=== PATIENT | female | born 1950 | race Caucasian/White ===

== ENCOUNTER 2019-12-29 16:13 | Outpatient (REF) | payer MEDICARE, OTHER, SELFPAY ==
--- NOTE | 2019-12-29 | MM_ITS ---
EXAMINATION: MM SCREENING DIGITAL BREAST TOMOSYNTHESIS, BILATERAL CLINICAL INFORMATION: Screening. Asymptomatic. The lifetime risk of breast cancer based on the Tyrer-Cuzick Model is 4.9%. COMPARISON: Mammography: December 23, 2018 and studies dating back to October 08, 2010 TECHNIQUE: Digital breast tomosynthesis is performed in both the craniocaudal and mediolateral oblique views along with computer-aided detection (CAD). Synthesized 2D images are generated from the tomosynthesis. FINDINGS: The breasts are almost entirely fatty (ACR BI-RADS breast composition Category a). There are no significant masses, abnormal calcifications, or other abnormalities. IMPRESSION: There are no significant changes from prior study. ASSESSMENT: BI-RADS 1: Negative RECOMMENDATION: Routine annual mammography screening. This patient's information was entered into a reminder system with a target due date for their next mammogram.
== END 2019-12-29 16:14 | disposition home or self-care (01) ==
LOC: HO.MAMMO 16:13
PROVIDERS: PCP Internal Medicine; Visit Provider Internal Medicine
DX: Z12.31 Encounter for screening mammogram for malignant neoplasm of breast (principal)
CPT/HCPCS: 77063; 77067

== ENCOUNTER 2020-12-18 15:05 | Outpatient (REF) | payer MEDICARE, OTHER, SELFPAY ==
--- NOTE | ~2020-12-18 | MM_ITS ---
EXAMINATION: BONE DENSITOMETRY CLINICAL INDICATION: Encounter for screening for osteoporosis. COMPARISON: Baseline BD dated 10/29/2007. TECHNIQUE: Using a [employer] DXA System (software version: 13.1) manufactured by [employer], dual-energy x-ray absorptiometry was performed of the lumbar spine and left hip. The images are of good technical quality. Summary results are attached. FINDINGS: AP SPINE L1-L4: Current: BMD 1.096 g/cm2, Z-score -0.2, T-score -0.7, normal, 2.1% decrease from baseline (<5% change is not significant). Baseline: BMD 1.119 g/cm2. LEFT FEMUR, NECK: Current: BMD 0.787 g/cm2, Z-score -0.8, T-score -1.8, osteopenia. Baseline: BMD 0.979 g/cm2. LEFT FEMUR, TOTAL: Current: BMD 0.852 g/cm2, Z-score -0.6, T-score -1.2, osteopenia, 16.6% decrease from baseline (<5% change is not significant). Baseline: BMD 1.022 g/cm2. IDENTIFIED RISK FACTORS: Height loss, low calcium intake, history of fracture (adult). Early menopause, secondary osteoporosis, hysterectomy, bilateral oophorectomy. HISTORY OF FRACTURE: Elbow. MEDICATIONS: None listed. MM/XR DEXA axial skeleton IMPRESSION: 1. DIAGNOSIS: Osteopenia based on the lowest T-score value of -1.8 in the femoral neck applying World Health Organization criteria. 2. 10-YEAR FRACTURE RISK PREDICTION, FRAX: Major osteoporotic fracture (clinical spine, forearm, hip or shoulder) 15.4%. Hip fracture 2.5%. 3. Treatment Recommendations: NOF guidelines recommend consideration for treatment in postmenopausal women and men age 50 and older presenting with the following: -A hip or vertebral (clinical or morphometric) fracture. -T-score less than or equal to -2.5 at the femoral neck or spine after appropriate evaluation to exclude secondary causes. -Low bone mass at the hip or spine and a 10-year fracture probability by FRAX of greater than or equal to 3% for hip fracture or greater than or equal to 20% for major osteoporotic fracture based on the [place] adapted WHO algorithm. 4. Other Recommendations: All treatment decisions require clinical judgment and consideration of individual patient factors, including patient preferences, comorbidities, previous drug use, risk factors not captured in the FRAX model (e.g. frailty, falls, vitamin D deficiency, increased bone turnover, interval significant decline in bone density) and possible under or overestimation of fracture risk by FRAX. Additional medical evaluation for secondary cause of low bone mineral density may be appropriate. FUTURE SCAN RECOMMENDATION: People with diagnosed cases of osteoporosis or at high risk for fracture should have regular bone mineral density tests. For patients eligible for Medicare, routine testing is allowed once every 2 years. The testing frequency can be increased to one year for patients who have rapidly progressing disease, those who are receiving or discontinuing medical therapy to restore bone mass, or have additional risk factors.
== END 2020-12-18 15:06 | disposition home or self-care (01) ==
LOC: HO.MAMMO 15:05
PROVIDERS: Visit Provider Internal Medicine
DX: Z13.820 Encounter for screening for osteoporosis (principal); Z78.0 Asymptomatic menopausal state; E28.39 Other primary ovarian failure; R29.890 Loss of height; E83.51 Hypocalcemia; Z90.710 Acquired absence of both cervix and uterus; Z90.722 Acquired absence of ovaries, bilateral
CPT/HCPCS: 77080

== ENCOUNTER 2020-12-31 15:43 | Outpatient (REF) | payer MEDICARE, OTHER, SELFPAY ==
--- NOTE | ~2020-12-31 | MM_ITS ---
EXAMINATION: MM SCREENING DIGITAL BREAST TOMOSYNTHESIS, BILATERAL CLINICAL INFORMATION: Screening. Asymptomatic. The lifetime risk of breast cancer based on the Tyrer-Cuzick Model is 5%. COMPARISON: Mammography: 12/29/2019, 12/23/2018, 12/15/2017 TECHNIQUE: Digital breast tomosynthesis is performed in both the craniocaudal and mediolateral oblique views along with computer-aided detection (CAD). Synthesized 2D images are generated from the tomosynthesis. Additional right MLO view is provided. Technically challenging exam, images tailored to patient capabilities. FINDINGS: The breasts are almost entirely fatty (ACR BI-RADS breast composition Category a). There are no significant masses, abnormal calcifications, or other abnormalities. Background stromal markings are stable. No developing density. No significant changes. MM/MM tomosynthesis screening BI IMPRESSION: No mammographic evidence of malignancy. ASSESSMENT: BI-RADS 1: Negative RECOMMENDATION: Routine annual mammography screening. This patient's information was entered into a reminder system with a target due date for their next mammogram.
== END 2020-12-31 15:44 | disposition home or self-care (01) ==
LOC: HO.MAMMO 15:43
PROVIDERS: Visit Provider Internal Medicine
DX: Z12.31 Encounter for screening mammogram for malignant neoplasm of breast (principal)
CPT/HCPCS: 77063; 77067

== ENCOUNTER 2022-01-10 15:34 | Outpatient (REF) | payer MEDICARE, OTHER, SELFPAY ==
--- NOTE | ~2022-01-10 | MM_ITS ---
EXAMINATION: MM SCREENING DIGITAL BREAST TOMOSYNTHESIS, BILATERAL CLINICAL INFORMATION: Screening. Asymptomatic. The lifetime risk of breast cancer based on the Tyrer-Cuzick Model is 4%. COMPARISON: Mammography: 12/31/2020, 12/29/2019, 12/23/2018 TECHNIQUE: Digital breast tomosynthesis is performed in both the craniocaudal and mediolateral oblique views along with computer-aided detection (CAD). Synthesized 2D images are generated from the tomosynthesis. FINDINGS: The breasts are almost entirely fatty (ACR BI-RADS breast composition Category a). Background stromal and fibroglandular densities are stable. No developing density or interval mass or architectural abnormality. Again, there is a dermal lesion overlying the posterior medial right breast. There are no abnormal calcifications. The axilla are unremarkable. No significant changes. MM/MM tomosynthesis screening BI IMPRESSION: No mammographic evidence of malignancy. ASSESSMENT: BI-RADS 2: Benign RECOMMENDATION: Routine annual mammography screening. This patient's information was entered into a reminder system with a target due date for their next mammogram.
== END 2022-01-10 15:35 | disposition home or self-care (01) ==
LOC: HO.MAMMO 15:34
PROVIDERS: PCP Internal Medicine; Visit Provider Internal Medicine
DX: Z12.31 Encounter for screening mammogram for malignant neoplasm of breast (principal)
CPT/HCPCS: 77063; 77067

== ENCOUNTER → 2023-01-13 16:00 | Outpatient (BNV) | payer MEDICARE, OTHER, SELFPAY | PROVIDERS: Visit Provider Radiology Diagnostic Radiology | DX: Z12.31 Encounter for screening mammogram for malignant neoplasm of breast (principal) | CPT/HCPCS: 77063; 77067 ==

== ENCOUNTER 2023-01-13 16:04 | Outpatient (REF) | payer MEDICARE, OTHER, SELFPAY ==
--- NOTE | ~2023-01-13 | MM_ITS ---
EXAMINATION: MM SCREENING DIGITAL BREAST TOMOSYNTHESIS, BILATERAL CLINICAL INFORMATION: Screening. Asymptomatic. COMPARISON: Mammography: This study is compared with prior exams dating back to 2017. TECHNIQUE: Digital breast tomosynthesis is performed in both the craniocaudal and mediolateral oblique views along with computer-aided detection (CAD). Synthesized 2D images are generated from the tomosynthesis. FINDINGS: The breasts are almost entirely fatty (ACR BI-RADS breast composition Category a). There are no significant masses, abnormal calcifications, or other abnormalities. MM/MM tomosynthesis screening BI IMPRESSION: No mammographic evidence of malignancy. ASSESSMENT: BI-RADS BI-RADS 1 - Negative RECOMMENDATION: Routine annual mammography screening. 1 year F/U This examination should not preclude the clinical evaluation of a suspicious palpable abnormality. This patient's information was entered into a reminder system with a target due date for their next mammogram.
== END 2023-01-13 16:05 | disposition home or self-care (01) ==
LOC: HO.MAMMO 16:04
PROVIDERS: Visit Provider Internal Medicine
DX: Z12.31 Encounter for screening mammogram for malignant neoplasm of breast (principal)
CPT/HCPCS: 77063; 77067

== ENCOUNTER 2024-02-23 15:06 | Outpatient (REF) | payer MEDICARE, OTHER, SELFPAY ==
--- OUTSIDE RECORDS SUMMARY | 2024-02-24 22:20 | XMS_ITS | Data Portability ---
Author Organization BRUNA [facility] person, [address] Address [address] [facility] [place] [address] Care Team Providers Care Lime Mixer Name Role Phone ZOHRA MARVIN Primary Care Provider [phone] Assessment No assessment recorded. Plan of Treatment Reminders Order Date Submit Date Provider Last Modified By Organization Details Last Modified Time Details Appointments None recorded. Lab rapid SARS CoV 2 Ag, QL IA, respiratory specimen 2022 [id number], [address], 3 17:47:36 Referral None recorded. Procedures None recorded. Surgeries None recorded. Imaging None recorded. Medication Orders amoxicillin 875 mg-potassiu m clavulanate 125 mg tablet 2022 023 [place] [address] [facility] #[id number], [address] [place], [place], [id number], 4 18:29:23 benzonatate 200 mg capsule 2022 023 [place] [address] [facility] #[id number], [address] [place], [place], [id number], 4 18:29:15 triamcinolo ne acetonide 0.1 % topical cream 2023 024 JENNI [facility] #18770, [address] [place], [id number], 4 19:03:41 cephalexin 500 mg capsule 2023 024 [facility] #02172, [address] [place], [id number], 4 19:03:41 mupirocin 2 % topical ointment 2023 024 [facility] #49331, [address] [place], [id number], 19:03:40 Patient TargetsNo targets recorded. Patient Instructions Encounter Date Encounter Id Patient Instructions Last Modified By Organization Details Last Modified Time 04/17/2022 [id number] sinusitis Not available 04/17 17:47:36 Acute Sinusitis: Care Instructions [email or web address] Not available 04/17/2022 17:47:36 cough: care instructions Not available 04/17/2022 17:47:36 Based on your presentation and exam, you are being diagnosed with Sinusitis. Rhinosinusitis is most often viral and will resolve on its own in 7-10 days. Symptoms that last longer than 2 weeks an antibiotic could be considered. Based on your presentation, and antibiotic was written. The following are my recommendations to help your symptoms and to allow your condition to improve: 1. Drink plenty of fluids while you are ill- stay hydrated 2. Rest - don't overexert yourself - this includes sports and any gym routines. 3. I suggest taking an antihistamine - like Claritin, Zyrtec, or Benedryl 4. If you take OTC cold medication I would recommend Cynthia-Selzer Cold/Cough. 5. Mucinex with a lot of water is ok - if you are having trouble clearing your nasal passages of mucous. However, if you start to cough then discontinue - this can increase coughing due to a watery post nasal drip. 6. Saline Nasal [place] is recommended. Since an antibiotic was prescribed you need to complete the full course - this is important so you don't develop any antibiotic resistance to future infections. I advise taking a Probiotic like Florastor since you are on an antibiotic - this will help you re-colonize your body with the good bacteria. Typically, it will take 6 months for you to restore your normal body saurav after an antibiotic. Don't hesitate to be seen again if you develop: 1. Fever > 100.5 2. Worsening Headache 3. Stiff Neck 4. Worsening Cough or Shortness of breath 5. Visual Changes. The antibiotic should start to work in 4-5 days. You may not notice immediate response. Thank you for using [facility] today, please feel free to contact our office if you have any questions or concerns. You blood pressure was elevated during your visit with us and you do not have a history of Hypertension or taking blood pressure medications currently. This is important to monitor and address with your PCP. Undiagnosed hypertension that remains untreated can lead to: 1. Kidney Failure 2. Stroke 3. Congestive Heart Failure. Please get a blood pressure cuff and keep a journal of your daily blood pressure. Once in the AM and Once in a PM. Please schedule an appointment with your Primary Care Doctor to discuss the results of your journal. [email or web address] Not available 04/17/2022 17:47:34 10/31/2023 [id number] insect stings an d bites: care instructions [email or web address] Not available 10/31/2023 19:03:30 impetigo: care instructions [email or web address] Not available 10/31/2023 19:03:30 Increase fluids. Get plenty of rest. [email or web address] or with your PCP in 2-3 days if your symptoms are not improving. You should follow up sooner if your symptoms worsen significantly or if you develop new symptoms that concern you. Please proceed to the emergency department with an new/worsening symptoms. Call 911 or proceed to nearest Emergency Department if you develop shortness of breath, chest pain, or other symptoms that concern you. You may take tylenol as directed on package. [email or web address] Not available 10/31/2023 19:00:37 Pt tells me that she has done fine with topical steroid creams. Reaction to prednisone was colitis.... Some of these lesions appear like impetigo possibly secondary to scratching. [email or web address] Not available 10/31/2023 22:42:20 Reason for Referral None Reported. Results Created Date Observation Date Name Description Value Unit Range Abnormal Flag Note LastModifiedBy Organization Detail LastModifiedTime 04/17/1904/17/2022 rapid SARS CoV 2 Ag, QL IA, respi rator y speci men Unknown Analyte Normal =Negat enoch Not Available [facility] [address] [place], [address], 04/17/2022 16:46:57 04/17/19 23 04/17/2022 rapid SARS CoV 2 Ag, QL IA, respi rator y speci men Unknown Analyte negati ve Not Available [facility] [address] [place], [address], 04/17/2022 16:46:57 Result Notes None recorded. Problems Name Problem SNOMED Code Status Onset Date Resolution Date Notes Provider Name and Address Organization Details Recorded Time Hypothyroidism 25518022 Active Gladys haley PA - [facility] 18:29:52 Problem Notes None recorded. Procedures Surgical History Date Name Laterality Status Provider Name and Address Organization Details Recorded Time Cataract surg w/iol 1 stage completed Gladys Bernabe PA - [facility] 10/31/2023 18:30:00 tonsillectomy completed Louann Brown PA - [facility] 04/17/2022 16:55:16 Appendectomy completed Louann Brown PA - [facility] 04/17/2022 16:55:21 hysterectomy completed Louann Mongefecaesar PA - [facility] 04/17/2022 16:55:31 varicose vein operation completed Louann Brown PA - [facility] 04/17/2022 16:55:45 Imaging Results None recorded. Procedure Notes None recorded. Medical Equipment None Reported. Allergies Allergen ID Allergen Name Allergen Category Reaction Reaction Severity Criticality Documentation Date Start Date Code Code System Note Provider Name and Address Organization Details Recorded Time 324616 acetamino phen / hydrocodo ne medicatio n Not available Not available Not available 04/17/2022 47980 2 RxNorm Louann haley PA - [facility] 16:50:13 953967 acetamino phen / oxycodone medicatio n Not available Not available Not available 04/17/2022 74341 3 RxNorm Louann Brown null, PA - [facility] 3 16:50:21 603768 prednison e medicatio n Not available Not available Not available 04/17/2022 8640 RxNorm Louann Brown null, PA - [facility] 3 16:50:31 319098 aspirin medicatio n Not available Not available Not available 04/17/2022 1191 RxNorm Louann Brown null, PA - [facility] 3 16:50:58 Medications Name Sig Start Date Stop Date Status Note LastModified by Organization Details LastModified Time amoxicillin 500 mg capsule 10/30 completed Not Available Not Available Not Available promethazin e-DM 6.25 mg-15 mg/5 mL oral syrup TAKE 5 ML BY MOUTH EVERY 6 HOURS NEEDED FOR COUGH 04/17 completed Not Available Not Available Not Available azithromyci n 250 mg tablet TAKE 2 TABLETS BY MOUTH ON DAY 1 AND TAKE 1 TABLET ON DAYS 2 THROUGH 5 FOR A TOTAL OF 5 DAYS.TAKE WITH FOOD. USE PROBIOTIC LIKE YOGURT FOR 3 WEEKS 10/30 completed Not Available Not Available Not Available benzonatate 200 mg capsule TAKE 1 CAPSULE BY MOUTH THREE TIMES DAILY 10/30 completed Not Available Not Available Not Available phenazopyri dine 200 mg tablet TAKE 1 TABLET BY MOUTH THREE TIMES DAILY 04/17 completed Not Available Not Available Not Available triamcinolo ne acetonide 0.1 % topical cream APPLY THIN LAYER TOPICALLY TO THE AFFECTED AREA 2 TO 3 TIMES PER DAY active Not Available Not Available No t Available amoxicillin 500 mg tablet TAKE 1 TABLET BY MOUTH EVERY 8 HOURS 10/30 completed Not Available Not Available Not Available ketorolac 0.5 % eye drops 10/30 completed Not Available Not Available Not Available meloxicam 7.5 mg tablet 10/30 completed Not Available Not Available Not Available levothyroxi ne 100 mcg tablet active Not Available Not Available Not Available prednisolon e acetate 1 % eye drops,suspe nsion SHAKE LIQUID AND INSTILL 1 DROP IN LEFT EYE FOUR TIMES DAILY FOR 3 WEEKS THEN STOP 10/30 completed Not Available Not Available Not Available benzonatate 100 mg capsule TAKE 1 CAPSULE BY MOUTH THREE TIMES DAILY NEEDED FOR COUGH 10/30 completed Not Available Not Available Not Available cephalexin 500 mg capsule TAKE 1 CAPSULE BY MOUTH EVERY 8 HOURS FOR 10 DAYS active Not Available Not Available No t Available omeprazole 20 mg capsule,del ayed release active Not Available Not Available Not Available diclofenac sodium 75 mg tablet,bayron yed release active Not Available Not Available Not Available mupirocin 2 % topical ointment APPLY SPARINGLY TO THE AFFECTED AREA THREE TIMES DAILY FOR 10 DAYS active Not Available Not Available No t Available cefuroxime axetil 500 mg tablet 10/30 completed Not Available Not Available Not Available levofloxaci n 500 mg tablet TAKE 1 TABLET BY MOUTH EVERY DAY FOR 10 DAYS FOR INFECTION 04/17 completed Not Available Not Available Not Available albuterol sulfate HFA 90 mcg/actuati on aerosol inhaler INHALE 2 PUFFS INTO THE LUNGS EVERY 6 HOURS NEEDED FOR WHEEZING 10/30 completed Not Available Not Available Not Available cefdinir 300 mg capsule TAKE 1 CAPSULE BY MOUTH TWICE DAILY 04/17 completed Not Available Not Available Not Available fluticasone propionate 50 mcg/actuati on nasal spray,suspe nsion SHAKE LIQUID AND USE 1 SPRAY IN EACH NOSTRIL TWICE DAILY FOR ALLERGY SYMPTOMS 10/30 completed Not Available Not Available Not Available amoxicillin 875 mg-potassiu m clavulanate 125 mg tablet TAKE 1 TABLET BY MOUTH TWICE DAILY FOR 10 DAYS 10/30 completed Not Available Not Available Not Available Advair HFA 115 mcg-21 mcg/actuati on aerosol inhaler INHALE 2 PUFFS INTO THE LUNGS TWICE DAILY 10/30 completed Not Available Not Available Not Available Paxlovid 300 mg (150 mg x 2)-100 mg tablets in a dose pack TK 2 NIRMATREL VIR TS AND 1 RITONAVIR T TOGETHER PO BID FOR 5 DAYS 10/30 completed Not Available Not Available Not Available Vitals Date Recorded Body height Body mass index (BMI) Body weight Oxygen saturation Oxygen saturation in Arterial blood by Pulse oximetry Heart rate Respiratory rate Body temperature Systolic blood pressure Diastolic blood pressure Provider Name and Address Organization Details Last Updated DateTime 4 167.64 cm 41.2 kg/m2 033897. 05 g 99 % 99 % 68 /min 18 /min 97.7 [degF] 167 mm[Hg] 84 mm[Hg] Gladys Zabalarudy PA - [facility] 4 18:32:56 Date Recorded Systolic blood pressure Diastolic blood pressure Provider Name and Address Organization Details Last Updated DateTime 10/31/2023 144 mm[Hg] 86 mm[Hg] Ron Steward, [facility] [address] [facility] [place], [address], PA - [facility] 10/31/2023 19:03:22 Date Recorded Body height Body mass index (BMI) Body weight Oxygen saturation Oxygen saturation in Arterial blood by Pulse oximetry Heart rate Respiratory rate Body temperature Systolic blood pressure Diastolic blood pressure Provider Name and Address Organization Details Last Updated DateTime 3 167.64 cm 41.2 kg/m2 556291. 05 g 97.8 % 97.8 % 87 /min 18 /min 97.8 [degF] 153 mm[Hg] 80 mm[Hg] Louann Brown PA - [facility] 3 16:59:29 Social History Question Answer Notes LastModified by NETpeas ion Details LastModified Time Tobacco Smoking Status Never Smoker Louann haley PA - [facility] 04/17/2022 16:54:56 What Is Your Level Of Alcohol Consumption? Occasional 1x Every Other Month Information not available 04/17/2022 Do You Use Any Illicit Or Recreational Drugs? No Information not available 04/17/2022 Have You Recently Traveled Abroad? No Information not available 04/17/2022 Do You Or Have You Ever Used Any Other Forms Of Tobacco Or Nicotine? No Information not available 04/17/2022 Sex: Unknown Functional Status None recorded. Mental Status None recorded. Family History Relationship Description Onset Age of this Age Resolved Age Notes LastModified by Organization Details LastModified Time Father Malignant tumor of kidney [email or web address] Not available 2022 16:53:31 Father Cerebrovascu lar accident [email or web address] Not available 04/2022 16:54:04 Mother Chronic obstructive pulmonary disease [email or web address] Not available 2022 16:53:45 Medical History No medical history recorded. Gynecological HistoryNo gynecological history recorded. Obstetrics History GPAL:G 0 P 0 0 0 0 Immunizations Vaccine Type Date Status Note Provider Nam e and Address Organization Details Recorded Time zoster recombinant 1 completed Louann Monfette null, PA - [facility] 04/17/2022 16:50:02 zoster recombinant 1 completed Louann Monfette null, PA - [facility] 04/17/2022 16:50:02 Influenza, high-dose, quadrivalent, PF 0 completed Louann Monfette null, PA - [facility] 04/17/2022 16:50:02 Influenza, high-dose, quadrivalent, PF 1 completed Louann Monfette null, PA - [facility] 04/17/2022 16:50:02 Influenza, adjuvanted, quadrivalent, PF 2 completed Louann Monfette null, PA - [facility] 04/17/2022 16:50:02 COVID-19, mRNA, LNP-S, PF, 100 mcg/0.5mL dose or 50 mcg/0.25mL dose 1 completed Louann Monfette null, PA - [facility] 04/17/2022 16:50:02 COVID-19, mRNA, LNP-S, PF, 100 mcg/0.5mL dose or 50 mcg/0.25mL dose 1 completed Louann Monfette null, PA - [facility] 04/17/2022 16:50:02 COVID-19, mRNA, LNP-S, PF, 100 mcg/0.5mL dose or 50 mcg/0.25mL dose 2 completed Louann Monfette null, PA - [facility] 04/17/2022 16:50:02 COVID-19, mRNA, LNP-S, PF, 100 mcg/0.5mL dose or 50 mcg/0.25mL dose 1 completed Louann Monfette null, PA - [facility] 04/17/2022 16:50:02 COVID-19, mRNA, LNP-S, bivalent, PF, 50 mcg/0.5 mL or 25mcg/0.25 mL dose 2 completed Louann Mongelynda haley, PA - [facility] 04/17/2022 16:50:02 pneumococcal polysaccharide PPV23 1 completed Louann Mongelynda null, PA - [facility] 04/17/2022 16:50:02 Pneumococcal conjugate PCV 13 7 completed Louann Mongelynda null, PA - [facility] 04/17/2022 16:50:02 Past Encounters Encounter ID Performer Location Encounter Start Date Encounter Closed Date Diagnosis/Indication Diagnosis SNOMED-CT Code Diagnosis ICD10 Code [id number] [address] [place] [address] 01/28/2022 12:15:47 01/28/2022 13:50:07 [id number] [address] [place] [address] 11/04/2019 12:34:50 11/04/2019 15:02:28 [id number] [address] [place] [address] 12/30/2021 15:54:53 12/30/2021 17:50:16 [id number] [address] [place] [address] 06/15/2018 17:25:09 06/15/2018 18:24:02 [id number] [address] [place] [address] 10/27/2019 13:18:53 10/27/2019 14:36:55 [id number] [address] [place] [address] 05/28/2017 15:35:13 05/28/2017 16:02:24 [id number] [address] [place] [address] 08/06/2020 15:06:48 08/06/2020 16:48:43 [id number] [address] [place] [address] 07/13/2021 12:18:25 07/13/2021 14:29:30 [id number] [address] [place] [address] 12/26/2021 16:05:48 12/26/2021 17:42:15 [id number] [address] [address] [place] [address] 12/22/2021 16:13:25 12/22/2021 17:05:19 [id number] [place] GORMAN [address] [place] [address] 04/17/2022 15:02:29 04/17/2022 17:49:15 Exposure to SARS-CoV-2 776277011 Z20.822 Elevated blood-pressure reading without diagnosis of hypertension 657669841 R03.0 Acute sinusitis 86413423 J01.90 Cough 94982559 R05.9 [id number] MINGO Ann [address] [place] [address] [place] [address] 10/31/2023 17:50:34 10/31/2023 19:05:01 Bite of insect 706784961 W57.XXXA Impetigo 46675950 L01.00 Health Concerns Section Related Observation LastModified by Organization Detai ls LastModified Time None Recorded Concern Status LastModified by Organization Details LastModified Time None Recorded Advance Directives Directive None Recorded Payers Encounter Date Sequence Insurance Name Policy Number Policy Garzon Covered Member ID Garzon Member ID Guarantor Name 12/26/2021 1 [place] [employer] Valerie Mcdonough Colt [id number] Valerie Mcdonough Colt 12/26/2021 2 WPS - FOR LIFE (SECONDARY TO MEDICARE) Valerie Mcdonough Colt [id number] Valerie Mcdonough Colt 12/30/2021 1 [place] [employer] Valerie Mcdonough Colt [id number] Valerie Mcdonough Colt 12/30/2021 2 WPS - FOR LIFE (SECONDARY TO MEDICARE) Valerie Mcdonough Colt [id number] Valerie Mcdonough Colt 01/28/2022 1 [place] [employer] Valerie Mcdonough Colt [id number] Valerie Mcdonough Colt 01/28/2022 2 WPS - FOR LIFE (SECONDARY TO MEDICARE) Valerie Mcdonough Colt [id number] Valerie Mcdonough Colt 04/17/2022 1 [place]: [facility] Valerie Mcdonough Colt [id number] Valerie Mcdonough Colt 04/17/2022 2 WPS - FOR LIFE (SECONDARY TO MEDICARE) Valerie Mcdonough Colt [id number] Valerie Mcdonough Colt 10/31/2023 1 [place] [facility] Valerie Mcdonough Colt [id number] Valerie Mcdonough Colt 10/31/2023 2 WPS - FOR LIFE (MEDICARE SUPPLEMENT) Valerie Mcdonough Colt [id number] Valerie Mcdonough Colt Notes Date Note Type Note Provider Name and Address Organization Details Recorded Time 04/17/2022 text/html Sinus ComplaintsReported bypatient.Location:sinu s pain Associated Symptoms:nasal discharge from both nostrils;headache forehead;sore throat;Post nasal drip Onset/Timing:initially started 1weeks ago Severity:mild Context:no recent sick contactsNotes:The patient reports that last year she had a drawn out illness that ended up as pneumonia. She started to had head congestion that is continuing. She now feels it going into her chest and she doesn't want to let it get worse. She denies any shortness of breath or wheezing. 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 BRUNA GORMAN, RAPHAEL Restrepo, [address], PA - [facility] 04/17/2022 22:44:15 10/31/2023 text/html Skin Redness UCR eported bypatient.Location:neck ; back; bilateral arm Quality:not painful;erythematous;wa rm;itchy Severity:moderate;const ant Duration:2 days Onset:sudden onset Symptoms:no fever; no nausea; no vomiting;swelling MINGO Ann [address] [place], [address], [place] PA - [facility] 10/31/2023 22:47:21 OBGyn Episode No OBEpisode recorded.
== END 2024-02-23 15:07 | disposition home or self-care (01) ==
LOC: HO.MAMMO 15:06
PROVIDERS: Absent Provider Obstetrics & Gynecology Gynecologic Oncology; PCP Internal Medicine; Visit Provider Internal Medicine
DX: Z12.31 Encounter for screening mammogram for malignant neoplasm of breast (principal)
CPT/HCPCS: 77063; 77067

== ENCOUNTER → 2024-02-23 15:15 | Outpatient (BNV) | payer MEDICARE, OTHER, SELFPAY | PROVIDERS: Absent Provider Obstetrics & Gynecology Gynecologic Oncology; PCP Internal Medicine; Visit Provider Internal Medicine | DX: Z12.31 Encounter for screening mammogram for malignant neoplasm of breast (principal) | CPT/HCPCS: 77063; 77067 ==

== ENCOUNTER 2025-02-28 15:15 | Outpatient (REF) | payer MEDICARE, OTHER, SELFPAY ==
--- OUTSIDE RECORDS SUMMARY | 2023-05-22 19:20 | XMS_ITS | Encounter Summary ---
Author Organization [facility] Address [address] [place] [address] Phone Care Team Providers Care Petrographer Name Role Phone Uriel Estrella MD Primary Care Provider [phone] Debby Ernst MD Unavailable Joni Jenkins MD Unavailable [phone] Amrita Vincent MD Unavailable Encounter Details Date Type Department Care Team (Late st Contact Info) Description 05/22/2023 7:20 PM EST Hospital Encounter [facility] [address] [place] [address] [id number] Whit Marc PA-C, MS [address] [place], [place] [id number] [email or web address] Social History Tobacco Use Types Packs/Day Years Used Date Smoking Tobacco: Former Cigarettes 0.5 2 1 978 - 1980 Smokeless Tobacco: Never Alcohol Use Standard Drinks/Week Comments Not Currently 0 (1 standard drink = 0.6 oz pur e alcohol) last drink in 2023 or 2022 Education Answer Date Recorded Are you interested in more education? Not on hari e 07/11/2022 Are you concerned about learning? Not on file 07/11/2022 No 07/11/2022 No 07/11/2022 Food Answer Date Recorded Within the past 6 months we worried whether our food would run out before we got money to buy more. Never True 10/13/2024 Within the past 6 months the food we bought just didn't last and we didn't have enough money to get more. Never True Residential Stability Answer Date Recor ded What is your housing situation today? I have jack sing 10/13/2024 How many times have you move d in the past 12 months? Zero (I did not move) 10/13/2024 Paying for Meds Answer Date Recorded Do you have trouble paying for medicines? No 10/13/2024 Paying Utility Bills Answer Date Record ed Do you have trouble paying your heating or elect ricity bill? No 10/13/2024 Transportation Answer Date Recorded Has the lack of transportati on kept you from medical appointments or from getting medications? Yes 10/13/2024 Digital Access Answer Date Recorded No 10/13/2024 Yes 10/13/2024 Do you have reliable internet access at home? Ye s 10/13/2024 Do you have a device (e.g., phone, tablet, computer) with a working camera? Yes 10/13/2024 Intimate Partner Violence Answer Date R ecorded Are you denied basic needs s uch as food, clothing, or medical care? No 02/27/2025 In the past 12 months have y ou been in a relationship with a person who hurts, threatens, or tries to control you? No 02/27/2025 Are you denied basic needs s uch as food, clothing, or medical care? No 02/27/2025 In the past 12 months have y ou been in a relationship with a person who hurts, threatens, or tries to control you? No 02/27/2025 Comments No Sex and Gender Information Value Date Recorded Sex Assigned at Not on file Legal Sex Female 10:02 PM EDT Gender Identity Not on file Sexual Orientation Not on file documented as of this encounter Functional Status * Calculated C-SSRS Risk Score (Lifetime/Recent) Answer Date of Assessment Author No Risk Indicated 10/13/2024 7:05 PM EDT Melissa Dukes, ANAND * [place] Suicide Severity Rating Scale (Screener/Recent Self-Report) Question Answer Date of Assessment Author 1. Wish to be (Past 1 Month) No 025 7:05 PM EDT Melissa Dukes, ANAND 2. Non-Specific Active Suici jeffery Thoughts (Past 1 Month) No 10/13/2024 7:05 PM EDT Melissa Dukes , ANAND 6. Suicidal Behavior (Lifetime) No 7:05 PM EDT Melissa Dukes, RN documented as of this encounter Plan of Treatment Upcoming Encounters Date Type Department Care Team (Late st Contact Info) Description 03/13/2025 Procedure Pass [facility] Admitting [facility] Virtual Department [address] [place] [phone] 03/13/2025 10:30 AM EST Hospital Encounter [facility] Virtual Department [address] [place] [id number] Joni Jenkins MD [address] [place] [phone] 03/13/2025 10:30 AM EST - 03/13/2025 11:00 AM EST Surgery [facility] Admitting [facility] Virtual Department [address] [place] [phone] Joni Jenkins MD [address] [place] [phone] COLONOSCOPY 05/19/2025 3:30 PM EST Office Visit [facility] [address] [place] [phone] Uriel Estrella MD [address] [place] [phone] 08/10/2025 3:40 PM EDT Office Visit [facility] [address] [place] [phone] Amrita Vincent MD [address] [place] [id number] [email or web address] Scheduled Procedures Name Priority Associated Diagnoses Date/Ti me COLONOSCOPY GERD without esophagitis 03/13/2025 10:30 AM EST documented as of this encounter Procedures Procedure Name Priority Date/Time Associated Diagnosis Comments XR TIBIA FIBULA 2 VIEWS (LEFT) Urgent/patient waiting 05/22/2023 7:29 PM EST Left leg pain documented in this encounter Results * XR Tibia Fibula 2 Views (Left) (05/22/2023 7:29 PM EST) Anatomical Region Laterality Modality Leg Left Computed Radiogr aphy 05/22/2023 7:44 PM EST Impressions 05/22/2023 7:48 PM EST No acute displaced fracture or dislocation. ATTESTATION: I, Dr. Rainer Herndon as teaching physician, have reviewed the images for this case and if necessary edited the report originally created by Isabella [place]. Narrative 05/22/2023 7:48 PM EST XR TIBIA FIBULA 2 VIEWS (LEFT) Referring clinician's provided indication for this examination in [facility]: Trauma; folding chair to the left martinez last Thursday, bruised COMPARISON: None. FINDINGS: No acute displaced fracture or dislocation. The knee and ankle articulations appear intact on limited, nondedicated views. Small quadriceps tendon enthesophyte. Mild degenerative changes of the left knee and ankle. Small plantar enthesophyte. Mild diffuse soft tissue edema. Procedure Note Rainer Herndon MD - 05/22/2023 XR TIBIA FIBULA 2 VIEWS (LEFT) Referring clinician's provided indication for this examination in [facility]:Trauma; folding chair to the left martinez last Thursday, bruised COMPARISON: None. FINDINGS: No acute displaced fracture or dislocation. The knee and anklearticulations appear intact on limited, nondedicated views. Smallquadriceps tendon enthesophyte. Mild degenerative changes of the left kneeand ankle. Small plantar enthesophyte. Mild diffuse soft tissue edema. IMPRESSION: No acute displaced fracture or dislocation. ATTESTATION: I, Dr. Rainer Herndon as teaching physician, have reviewed theimages for this case and if necessary edited the report originally createdby Isabella [place]. Whit Marc PA-C, MS IMG XR LOWER EXTRE MITY Final Result documented in this encounter Visit Diagnoses Not on filedocumented in this encounter Additional Health Concerns Infection Onset Date Last Indicated Resolved Time CoV-Risk 06/06/2024 06/06/2024 06/17/2024 1:23 AM EDT CoV-Risk 07/22/2024 07/22/2024 08/02/2024 1:21 AM EDT Resp-Risk 02/11/2025 02/11/2025 02/22/2025 7:06 PM EST Assessment Noted Time PHQ-2 Depression Total Score: 2 02/25/20 3:49 PM EST documented as of this encounter Care Teams Petrographer Relationship Specialty Start Date End Date Uriel Estrella MD [address] [place] [address] [email or web address] PCP - General 02/12/17 Debby Ernst MD [address] [phone] Obstetrics and Gynecology 03/20/20 Joni Jenkins MD [address] [phone] Gastroenterology 03/20/20 Amrita Vincent MD [address] [phone] [email or web address] Endocrinology 10/23/20 documented as of this encounter Additional Source Comments The information contained in this document represents components of the legal health record. It is not the complete legal health record.[facility]
--- OUTSIDE RECORDS SUMMARY | 2025-02-27 09:00 | XMS_ITS | Encounter Summary ---
Author Organization [facility] Address [address] [facility] [address] [place] [address] Phone Care Team Providers Care Air Conditioning Supervisor Name Role Phone Uriel Estrella MD Primary Care Provider Debby Ernst MD Unavailable Joni Jenkins MD Unavailable [phone] Amrita Vincent MD Unavailable Uriel Estrella MD Unavailable [phone] Encounter Details Date Type Department Care Team (Late st Contact Info) Description 02/27/2025 9:00 AM EST Pre-Admission Testing Pre Procedure Evaluation [address] [place] [address] Joni Jenkins MD [address] [place] [address] [email or web address] Social History Tobacco Use Types Packs/Day Years [...] on file documented as of this encounter Last Filed Vital Signs Vital Sign Reading Time Taken Comments Blood Pressure - - Pulse - - Temperature - - Respiratory Rate - - Oxygen Saturation - - Inhaled Oxygen Concentration - - Weight 120.2 kg (265 lb) 02/27/2025 2:47 PM EST Height 167.6 cm (5' 6 ) 02/27/2025 2:47 PM EST Body Mass Index 42.77 02/27/2025 2:47 PM EST documented in this encounter Progress Notes * Marsha Julio RN - 02/27/2025 9:00 AM EST Reviewed prep instructions. All questions answered. Ride home arranged. Patient verbalized understanding documented in this encounter Plan of Treatment Upcoming Encounters Date Type Department Care Team (Late st Contact Info) Description 03/13/2025 Procedure Pass [facility] Endoscopy Admitting Dept Virtual Department [address] [place] [address] 03/13/2025 10:30 AM EST Hospital Encounter [facility] Admitting [facility] Virtual Department [address] [place] [address] Joni Jenkins MD [address] [place] [address] 03/13/2025 10:30 AM EST - 03/13/2025 11:00 AM EST Surgery [facility] Admitting Dept Virtual Department [address] [place] [address] Joni Jenkins MD [address] [place] [address] COLONOSCOPY 05/19/2025 3:30 PM EST Office Visit [facility] [address] [place] [address] Uriel Estrella MD [address] [place] [address] 08/10/2025 3:40 PM EDT Office Visit [facility] [address] [place] [address] [place] [address] Amrita Vincent MD [address] [place] [address] [email or web address] [email or web address] Procedures Name Priority Associated Diagnoses Date/Ti me COLONOSCOPY GERD without esophagitis 03/13/2025 10:30 AM EST documented as of this encounter Goals Goal Patient Goal Type Associated Problems Recent Progress Patient-Stated? Author Autogenerat ed Goal Care Plan Autogenerated Problem No Carolina Love RN documented as of this encounter Visit Diagnoses Not on filedocumented in this encounter Additional Health Concerns Active Problems Noted Date Diagnosed Date Autogenerated Problem 02/24/2025 Assessment Noted Time PHQ-2 Depression Total Score: 1 02/27/20 25 6:36 PM EST documented as of this encounter Care Teams Air Conditioning Supervisor Relationship Specialty Start Date End Date Uriel Estrella MD [address] [place] [address] [email or web address] PCP - General 02/12/17 Debby Ernst MD [address] [address] Obstetrics and Gynecology 03/20/20 Joni Jenkins MD [address] [address] [email or web address] Gastroenterology 03/20/20 Amrita Vincent MD [address] [place] [address] [email or web address] Endocrinology 10/23/20 Uriel Estrella MD [address] [place] [address] [email or web address] Insurance Assigned Provider 06/20/23 documented as of this encounter Additional Source Comments The information contained in this document represents components of the legal health record. It is not the complete legal health record.[facility]
--- OUTSIDE RECORDS SUMMARY | 2025-02-27 16:00 | XMS_ITS | Encounter Summary ---
Author Organization [facility] Address [address] [place] [address] Phone Care Team Providers Care Booster Station Operator Name Role Phone Uriel Estrella MD Primary Care Provider [phone] Debby Ernst MD Unavailable [phone] Joni Jenkins MD Unavailable [phone] Amrita Vincent MD Unavailable Uriel Estrella MD Unavailable [phone] Reason for Visit * Reason Comments Medicare Annual Wellness Visit Subsequen t Encounter Details Date Type Department Care Team (Latest Contact Info) Description 02/27/2025 4:00 PM EST Office Visit [facility] [address] [place], [place] [phone] Uriel Estrella MD [address] [place] [address] [email or web address] Routine general medical examination at a health care facility (Primary Dx); Morbid (severe) obesity due to excess calories; History of pulmonary embolism; Elevated blood pressure reading without diagnosis of hypertension; History of pulmonary embolus (PE); Acquired hypothyroidism Social History Tobacco Use Types Packs/Day Years [...] Sign Reading Time Taken Comments Blood Pressure 145/78 02/27/2025 4:51 PM EST Pulse 75 02/27/2025 3:49 PM EST Temperature 36.7 C (98.1 F) 02/27/2025 3:49 PM EST Respiratory Rate - - Oxygen Saturation 98% 02/27/2025 3:49 PM EST Inhaled Oxygen Concentration - - Weight 120.9 kg (266 lb 9.6 oz) 02/27/2025 3:49 PM EST Height - - Body Mass Index 43.03 02/27/2025 2:47 PM EST documented in this encounter Progress Notes * Uriel Estrella MD - 02/27/2025 4:00 PM EST Subjective Valerie Gregory is a 75 y.o. female. History of Present Illness Valerie Mcnair is a 75 year old female who presents with persistent knee wound issues and fatigue. On December 05, 2024, she slipped on water in the hallway at school, causing her right leg to go out from under her. She fell forward, landing on her knee, which resulted in a significant wound. Shewas immediately taken to the emergency room at [facility], where she spent five days due to uncontrolled bleeding and was seen by multiple specialists. The wound has been slow to heal, and she continues to experience leakage and pain. She has been using small Band-Aids for dressing the wound, which has reduced from needing a full knee wrap. She has been seeing a workman's comp doctor weekly for wound measurements and is scheduled to see a plastic surgeon on March 17, 2025. She experiences significant fatigue and feels exhausted, often falling asleep unexpectedly. She feels exhausted and often falls asleep unexpectedly. She is currently working four days a week, taking Wednesdays off to recuperate due to low stamina. She has a persistent bruise on her arm, present for several weeks, causing pain when she raises herarm. She does not recall any recent shots or injuries that could have caused it. She reports an intermittent cough, which she attributes to a virus contracted from a student. The cough is not as severe as it was initially. She has a history of thyroid issues, which were exacerbated during her stay in rehab due to medication errors. Her TSH levels were significantly off, and she recently had blood work done to reassess her thyroid function. She reports symptoms of a urinary tract infection, including burning during urination and increasedfrequency, though her urine is not discolored. She has been drinking cranberry juice, which has alleviated some symptoms. She is on blood thinners due to a history of pulmonary embolisms, which have been unexplained despite extensive testing. She is also taking omeprazole and meloxicam. Current Outpatient Medications Ordered in Epic Medication Sig acetaminophen (TYLENOL) 500 MG tablet Take 1,000 mg by mouth 3 (three) times a day as needed for pain (specific location in comments). apixaban (ELIQUIS) 5 mg tablet Take 1 tablet (5 mg total) by mouth 2 (two) times a day. cetirizine (ZYRTEC) 10 MG tablet Take 10 mg by mouth daily. cholecalciferol (VITAMIN D3) 25 MCG (1,000 unit) tablet Take 1,000 Units by mouth nightly at bedtime. diphenhydrAMINE (BENADRYL) 50 MG capsule 50 mg one hour before your ct with iv contrast (Patient taking differently: as needed. 50 mg one hour before your ct with iv contrast) magnesium oxide (MAG-OX) 400 mg (241.3 mg elemental) tablet Take 400 mg by mouth daily. meloxicam (MOBIC) 7.5 MG tablet Take 1 tablet (7.5 mg total) by mouth 2 (two) times a day. omeprazole (PRILOSEC) 20 MG capsule TAKE 1 CAPSULE DAILY ONE-HALF TO ONE HOUR BEFORE MORNING MEAL (Patient taking differently: Take 20 mg by mouth every evening.) senna (SENOKOT) 8.6 mg tablet Take 2 tablets by mouth 2 (two) times a day as needed. acetaminophen (TYLENOL) 325 mg tablet Take 975 mg by mouth. (Patient not taking: Reported on 02/27/2025) amoxicillin (AMOXIL) 500 MG capsule Take 4 capsules 1 hour prior to dental procedures levothyroxine (SYNTHROID, LEVOTHROID) 100 MCG tablet TAKE ONE AND ONE-HALF TABLETS one day PER WEEKAND 1 TABLET 6 DAYS PER WEEK OR DIRECTED polyethylene glycol (GOLYTELY) 236-22.74-6.74 -5.86 gram solution Take 4,000 mL by mouth once for 1dose. Review of Systems Constitutional: Negative for unexpected weight change. HENT: Negative for changes in hearing. Eyes: Negative for unexpected vision change. Respiratory: Positive for cough and shortness of breath. Cardiovascular: Negative for chest pain and palpitations. Gastrointestinal: Negative for abdominal pain, blood in stool, constipation and diarrhea. Genitourinary: Negative for problems with urination, pain with intercourse and blood in urine. Neurological: Negative for dizziness, headaches and changes in memory. Skin: Negative for persistent rash and breast concerns. Musculoskeletal: Positive for joint pain. Objective Physical Exam BP (!) 145/78 (BP Location: Right forearm, Patient Position: Sitting, Cuff Size: Small) Pulse 75 Temp 36.7 ??C (98.1 ??F) (Oral) Wt 120.9 kg (266 lb 9.6 oz) LMP (LMP Unknown) SpO2 98% BMI43.03 kg/m?? HEENT:PERRTL, EOM intact, fundi benign, TM's clear, throat clear. NECK: supple, no thyroid megaly, no adenopathy. LUNGS: clear to A&P,no wheezing/rhonichi/rales. HEART: RRR S1S2 without murmurs, rubs or gallops. ABDOMEN: bowel sounds: normal, soft non tender without masses. EXTREMITIES: left knee with hematoma and drainage. BREAST: Per Dr. Ernst. 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 Potential need for surgical intervention discussed. - Continue follow-up with plastic surgeon on March 17. Anemia Anemia likely due to chronic blood loss from knee wound. Hemoglobin critically low at 7.3 during hospitalization. - Continue to monitor hemoglobin levels and hematocrit. - Consider iron supplementation with vitamin C if indicated. Urinary tract infection Symptoms of burning and increased frequency. Atypical presentation without hematuria. - Continue to monitor symptoms and follow up with gynecological surgeon. Dysuria Elevated blood pressure Intermittent elevated blood pressure, possibly related to pain and stress. No history of hypertension. - Continue to monitor blood pressure regularly. - Consider antihypertensive medication if blood pressure remains elevated. Hypothyroidism TSH significantly elevated at 45 in December, indicating poor control. Recent medication management issues. - Continue to monitor thyroid function tests. - Ensure accurate medication administration and follow-up with route jumper. Primary osteoarthritis involving multiple joints Chronic osteoarthritis with limited range of motion and pain, particularly in the shoulder. - Continue current management and monitor for changes in symptoms. History of pulmonary embolism Pulmonary embolism with no identifiable cause. Lifelong anticoagulation ongoing. - Continue apixaban as prescribed. Gastroesophageal reflux disease Chronic GERD managed with omeprazole. - Continue omeprazole as prescribed. General Health Maintenance Discussion of vaccinations and routine health maintenance. Hepatitis vaccine considered but not administered. - Consider hepatitis vaccination after recovery from current health issues. I obtained verbal consent from the patient or their proxy to record this visit for purposes of producing a draft of the encounter documentation. documented in this encounter Plan of Treatment Upcoming Encounters Date Type Department Care Team (Late st Contact Info) Description 03/13/2025 Procedure Pass [facility] Endoscopy Admitting Dept Virtual Department [address] [place] [address] 03/13/2025 10:30 AM EST Hospital Encounter [facility] Endoscopy Admitting Dept Virtual Department [address] [place] [address] Joni Jenkins MD [address] [place] [address] 03/13/2025 10:30 AM EST - 03/13/2025 11:00 AM EST Surgery [facility] Endoscopy Admitting Dept Virtual Department [address] [place] [address] Joni Jenkins MD [address] [place] [phone] COLONOSCOPY 05/19/2025 3:30 PM EST Office Visit [facility] [address] [place] [address] Uriel Estrella MD [address] [place] [address] 08/10/2025 3:40 PM EDT Office Visit [facility] Endocrinology Clinic [address] [place] [address] Amrita Vincent MD [address] [place] [address] [address] [email or web address] Scheduled Procedures Name Priority Associated Diagnoses Date/Ti me COLONOSCOPY GERD without esophagitis 03/13/2025 10:30 AM EST documented as of this encounter Goals Goal Patient Goal Type Associated Problems Recent Progress Patient-Stated? Author Autogenerat ed Goal Care Plan Autogenerated Problem No Carolina Love RN documented as of this encounter Visit Diagnoses Diagnosis Routine general medical examination at a health care facility- Primary Morbid (severe) obesity due to excess calories History of pulmonary embolism Personal history of venous thrombosis and embolism Elevated blood pressure reading without diagnosis of hypertension History of pulmonary embolus (PE) Acquired hypothyroidism Unspecified hypothyroidism GERD without esophagitis Esophageal reflux documented in this encounter Additional Health Concerns Active Problems Noted Date Diagnosed Date Autogenerated Problem 02/24/2025 Assessment Noted Time PHQ-2 Depression Total Score: 1 02/27/20 25 6:36 PM EST documented as of this encounter Care Teams Booster Station Operator Relationship Specialty Start Date End Date Uriel Estrella MD [address] [place] [address] [email or web address] PCP - General 02/12/17 Debby Ernst MD [address] [address] Obstetrics and Gynecology 03/20/20 Joni Jenkins MD [address] [address] [email or web address] Gastroenterology 03/20/20 Amrita Vincent MD [address] [place] [address] [address] [email or web address] Endocrinology 8/10/21 Uriel Estrella MD [address] [place] [address] [email or web address] Insurance Assigned Provider 06/20/23 documented as of this encounter Additional Source Comments The information contained in this document represents components of the legal health record. It is not the complete legal health record.[facility]
--- NOTE | ~2025-02-28 | MM_ITS ---
EXAMINATION: MM SCREENING DIGITAL BREAST TOMOSYNTHESIS, BILATERAL CLINICAL INFORMATION: Screening. Asymptomatic. COMPARISON: Mammography: Comparison is made with available priors TECHNIQUE: Digital breast mammography with tomosynthesis is performed in both the craniocaudal and mediolateral oblique views along with computer-aided detection (CAD). FINDINGS: There are scattered areas of fibroglandular density. There are no significant masses, abnormal calcifications, or other abnormalities. MM/MM tomosynthesis screening BI IMPRESSION: No mammographic evidence of malignancy. ASSESSMENT: BI-RADS Category 1: Negative RECOMMENDATION: Routine annual mammography screening. 1 year F/U This examination should not preclude the clinical evaluation of a suspicious palpable abnormality. This patient's information was entered into a reminder system with a target due date for their next mammogram. Electronically signed by: Thais Almanzar DO 02/28/2025 05:19 PM [place]
--- OUTSIDE RECORDS SUMMARY | 2025-02-28 19:34 | XMS_ITS | Encounter Summary ---
Author Organization [facility] Address [address] [facility] [address] [place] [address] Phone Care Team Providers Care Adult Live In Caregiver Name Role Phone Uriel Estrella MD Unavailable Uriel Estrella MD Unavailable Josefa Roque CABLE TELEVISION LINE TECHNICIAN Unavailable [phone] Jenifer Watson CABLE TELEVISION LINE TECHNICIAN Unavailable Phoebe Woodard CABLE TELEVISION LINE TECHNICIAN Unavailable [phone] Uriel Estrella MD Primary Care Provider Debby Ernst MD Unavailable Joni Jenkins MD Unavailable [phone] Amrita Vincent MD Unavailable Uriel Estrella MD Unavailable Sheri Hernandez OT Unavailable Zully Adan RN Unavailable Encounter Details Date Type Department Care Team (Latest Contact Info) Description 03/13/2020 Transcribe Orders Virtual Department [address] [place] [address] Joni Jenkins MD [address] [place] [address] Encounter for preprocedure screening laboratory testing for COVID-19 (Primary Dx) Social History Tobacco Use Types Packs/Day Years Used Date Smoking Tobacco: Former Cigarettes 0.5 2 1 978 - 1980 Smokeless Tobacco: Current Alcohol Use Standard Drinks/Week Comments Yes 0 (1 standard drink = 0.6 oz pur e alcohol) rarely Comments No Sex and Gender Information Value Date Recorded Sex Assigned at Not on file Legal Sex Female 10:02 PM EDT Gender Identity Not on file Sexual Orientation Not on file documented as of this encounter Plan of Treatment Upcoming Encounters Date Type Department Care Team (Late st Contact Info) Description 03/13/2025 Procedure Pass [facility] Endoscopy Admitting Dept Virtual Department [address] [place] [address] 03/13/2025 10:30 AM EST Hospital Encounter [facility] Endoscopy Admitting Dept Virtual Department [address] [place] [address] Joni Jenkins MD [address] [place] [address] 03/13/2025 10:30 AM EST - 03/13/2025 11:00 AM EST Surgery [facility] Endoscopy Admitting Dept Virtual Department [address] [place] [address] Joni Jenkins MD [address] [place] [phone] COLONOSCOPY 05/19/2025 3:30 PM EST Office Visit [facility] [address] [place] [address] Uriel Estrella MD [address] [place] [address] 08/10/2025 3:40 PM EDT Office Visit [facility] Endocrinology Clinic [address] [place] [address] Amrita Vincent MD [address] [place] [address] [email or web address] Scheduled Procedures Name Priority Associated Diagnoses Date/Ti me COLONOSCOPY GERD without esophagitis 03/13/2025 10:30 AM EST documented as of this encounter Results * COVID-19 PCR Order (03/19/2020 7:41 AM EST) COVID-19 Comment [id number] [facility] COVID Testing Status Sent to [facility] Other 03/19/2020 7:41 AM EST 03/19/2020 2:18 PM EST us Joni Jenkins MD LAB GENERAL ORDERABLES Final R esult Performing Organization Address City/State/[facility] Co de Phone Number [address] [address] documented in this encounter Visit Diagnoses Diagnosis Encounter for preprocedure screening laboratory testing for COVID-19- Primary GERD without esophagitis Esophageal reflux documented in this encounter Additional Health Concerns Infection Onset Date Last Indicated Resolved Time CoV-Risk 01/13/2022 01/13/2022 01/24/2022 1:24 AM EST CoV-Presumed Comment:COVID-19 Added 05/08/2022 05/07/2022 05/17/2022 8:32 P M EST CoV-Risk 05/17/2022 05/17/2022 05/17/2022 8:32 PM EST COVID-19 05/17/2022 05/17/2022 05/23/2022 9:05 AM EST COVID-19 03/31/2023 03/31/2023 04/21/2023 1:21 AM EST CoV-Risk 06/06/2024 06/06/2024 06/17/2024 1:23 AM EDT CoV-Risk 07/22/2024 07/22/2024 08/02/2024 1:21 AM EDT Resp-Risk 02/11/2025 02/11/2025 02/22/2025 7:06 PM EST Assessment Noted Time PHQ-2 Depression Total Score: 0 09/04/19 19 4:05 PM EDT documented as of this encounter Care Teams Adult Live In Caregiver Relationship Specialty Start Date End Date Uriel Estrella MD [address] [place] [address] PCP - General 02/12/17 Uriel Estrella MD [address] [place] [address] Insurance Assigned Provider 12/20/16 03/24/20 Uriel Estrella MD [address] [place] [address] Historical LMR Provider 01/03/17 10/22/20 Josefa Roque, CABLE TELEVISION LINE TECHNICIAN [address] [place] [address] [email or web address] Historical LMR Provider 01/03/17 10/22/20 Jenifer Watson, CABLE TELEVISION LINE TECHNICIAN [address] [place] [address] Historical LMR Provider 01/03/17 10/22/20 Phoebe Woodard CABLE TELEVISION LINE TECHNICIAN [address] [place] [address] [address] [place] [address] Historical LMR Provider 01/03/17 10/22/20 Debby Ernst MD [address] [place] [address] Obstetrics and Gynecology 03/20/20 Joni Jenkins MD [address] [place] [address] [email or web address] Gastroenterology 03/20/20 Amrita Vincent MD [address] [address] luis Endocrinology 10/23/20 Uriel Estrella MD [address] [place] [address] [email or web address] Insurance Assigned Provider 06/20/23 Sheri Hernandez, OT [address] [place] [address] [email or web address] Transitions [employer] 05/19/22 05/19/22 Zully Adan, RN [address] [place] [phone] [email or web address] PHCM Voicer 10/12/23 10/26/23 documented as of this encounter Additional Source Comments The information contained in this document represents components of the legal health record. It is not the complete legal health record.[facility]
--- OUTSIDE RECORDS SUMMARY | 2025-02-28 19:34 | XMS_ITS | Data Portability ---
Author Organization HEATHER Stephon Nunez [facility] Address [address] [place] [address] Care Team Providers Care Exercise Specialist Name Role Phone ZOHRA MARVIN Primary Care Provider Assessment No assessment recorded. Plan of Treatment Reminders Order Date Submit Date Provider Last Modified By Organization Details Last Modified Time Details Appointments NEW PROBLEM 2025 03:45P M CHARBEL SANZ PA-C Not available Not available Not available Lab None recorded. Referral physical therapist referral - ICD-10: M75.41(ri ght) 1. Rotator cuff strengthe jose alfredo program. 2. Scapular stabiliza tion program including strengthe jose alfredo, mobilizat ion, and proprioce ption. 3. End stage range stretchin g 4. Soft tissue modalitie s as indicated . 5. Home exercise program. 6. Therapeut ic exercises : all exercises prn per therapist . 7. Manual therapy: all manual therapy prn per therapist . 2024 025 Not available 04/27/2024 07:58:12 Procedures None recorded. Surgeries None recorded. Imaging XR, shoulder, 2 or more view - 210, 4 views of right shoulder 2024 025 kimberly [facility], [address], [facility] [address], [place], [address], 04/26/2024 15:59:49 Medication Orders None recorded. Patient TargetsNo targets recorded. Patient InstructionsNo instructions recorded. Reason for Referral Physical Therapist Referral for Impingement syndrome of right shoulder region ICD-10: M75.41(right) 1. Rotator cuff strengthening program.2. Scapular stabilization program including strengthening, mobilization, and proprioception.3. End stage range stretching4. Soft tissue modalities as indicated.5. Home exercise program.6. Therapeutic exercises: all exercises prn per therapist.7. Manual therapy: all manual therapy prn per therapist. Referring Physician: Krystal Kendrick, Orthopedic Surgery, Encounter Date: 04/26/2024 Results Created Date Observation Date Name Description Value Unit Range Abnormal Flag Note LastModifiedBy Organization Detail LastModifiedTime 04/26/19 25 04/26/2024 XR, shoul carlso, 2 or more view http:/ [email or web address] ?Encry pted=s hAaTro YD8dLq bEUv6g %2BXZw aYqtaq 0bqfl% 2Fg9IQ a4ajBk vP9nXo QUaueC m3YtLR FvZlgJ JJ8mAn HZtai3 5w7878 AC0Kqb HuMVKO uKiQtr MwF INTERFACE [facility] [address] [facility] [address], [place], [address], 04/26/2024 15:19:13 04/26/19 25 04/26/2024 XR, shoul carlos, 2 or more view [email or web address] ?Encry pted=s hAaTro YD8dLq bEUv6g %2BXZw aYqtaq 0bqfl% 2Fg9IQ a4ajBk vP9nXo QUaueC m3YtLR FvZlgJ JJ8mAn tai3 9e9186 AC0Kqb HuMVKO uKiQtr MwF INTERFACE [facility] [address] [facility] [address], [place], [address], 04/26/2024 15:19:15 Result Notes Documentation Provider Name and Address Organization Details Recorded Time Xr, Shoulder, 2 Or More View : [email or web address] Encrypted=vmSlFqgYL3nKriE Uv6g%4EMBiuQogyo0tpac%2Fg 3RJa5vhKsbI4kWxTBzyzYa1Iu TJWzMgrPOE7eOzUUxcb63f837 8JZ6FbfHkKAHXaRhUwdJvW Not Available [facility] 04/26/2024 15:19: 14 Xr, Shoulder, 2 Or More View : [email or web address] Encrypted=gwLrMxbKN8rZghL Uv6g%8ONRljMjbjb8gmoz%2Fg 5HNl1mvIgbB0sXuWTkfoMm1Iv ADZoLtfDRZ8sRdNPclj48j921 3GW7VcwIwZDJQiJgIytLnB Not Available [facility] 04/26/2024 15:19: 16 Problems Name Problem SNOMED Code Status Onset Date Resolution Date Notes Provider Name and Address Organization Details Recorded Time No complaint s 033249890 Active Status: 'I'; Not Available [facility] 4 09:24:12 Closed fracture of head of left radius 706829114651 62921 Active 2014 Problem Code: S52.122A ; Problem Code Type: ICD-10; Status: 'A'; Not Available [facility] 4 11:58:25 Pain of right knee joint 613308828795 100 Active 2021 Status: 'A'; Not Available [facility] 4 11:58:25 Osteoarth ritis of left knee joint 354427763788 109 Active 2023 Krystal Kendrick PA-C [address], [place], [address] , [facility] 4 12:31:40 Problem Notes None recorded. Procedures Surgical History Date Name Laterality Status Provider Name and Address Organization Details Recorded Time 5 Sports Knee 4&1 completed Krystal Kendrick PA-C [address], [place], [address], [facility] 09/13/2024 13:34:13 5 Sports Knee 4&1 completed Krystal Revord, PA-C [address], [place], [address], [facility] 06/21/2024 11:38:06 5 Sports Shoulder completed Krystaljenni Kendrick PA-C [address], [place], [address], [facility] 04/26/2024 15:46:50 5 Sports Knee 4&1 completed Krystal Mireille PA-C [address], [place], [address], [facility] 03/22/2024 11:50:20 4 Sports Knee 4&1 completed Krystal Mireille PA-C [address], [place], [address], [facility] 12/15/2023 09:53:56 4 Sports Knee 4&1 completed BRUNA Randall-C [address], [place], [address], [facility] 06/18/2023 12:31:28 Imaging Results None recorded. Procedure Notes None recorded. Medical Equipment None Reported. Allergies Allergen ID Allergen Name Allergen Category Reaction Reaction Severity Criticality Documentation Date Start Date Code Code System Note Provider Name and Address Organization Details Recorded Time 799337 oxycodone medicatio n Not available Not available Not available 06/23/2023 7804 [facility] 15:29:52 053455 diclofena c Not available Not available Not available Not available 03/22/2024 3355 RxNorm Can not take. Medic ation inter actio n. [place]. Marcial haley [facility] 14:47:08 914710 prednison e medicatio n Not available Not available Not available 06/21/2024 8640 RxNorm Marcial haley [facility] 15:34:36 05163 acetamino phen / hydrocodo ne medicatio n Not available Not available Not available 05/18/20232014 71455 2 RxNorm Aller gyRea ction : 'Naus ea/Vo darrick g/Becky rrhea '; Not Available [facility] 4 11:53:37 81709 acetamino phen / oxycodone medicatio n Not available Not available Not available 05/18/20232019 71236 3 RxNorm Not Available [facility] 4 11:53:37 Medications Name Sig Start Date Stop Date Status Note LastModified by Organization Details LastModified Time amoxicillin 500 mg capsule 06/22 completed Not Available Not Available Not Available diphenhydra mine 50 mg capsule TAKE 1 CAPSULE BY MOUTH ONE HOUR PRIOR TO CT WITH IV CONTRAST 06/21 completed Not Available Not Available Not Available azithromyci n 250 mg tablet TAKE 2 TABLETS BY MOUTH ON DAY 1 AND TAKE 1 TABLET ON DAYS 2 THROUGH 5 FOR A TOTAL OF 5 DAYS.TAKE WITH FOOD. USE PROBIOTIC LIKE YOGURT FOR 3 WEEKS 06/22 completed Not Available Not Available Not Available Synthroid 100 mcg tablet active Not Available Not Available Not Available triamcinolo ne acetonide 0.1 % topical cream APPLY THIN LAYER TOPICALLY TO THE AFFECTED AREA 2 TO 3 TIMES PER DAY 03/22 completed Not Available Not Available Not Available amoxicillin 500 mg tablet TAKE 1 TABLET BY MOUTH EVERY 8 HOURS 06/22 completed Not Available Not Available Not Available ketorolac 0.5 % eye drops 03/22 completed Not Available Not Available Not Available meloxicam 7.5 mg tablet active Not Available Not Available Not Available hydromorpho ne 2 mg tablet active Not Available Not Available Not Available prednisolon e acetate 1 % eye drops,suspe nsion SHAKE LIQUID AND INSTILL 1 DROP IN LEFT EYE FOUR TIMES DAILY FOR 3 WEEKS THEN STOP 03/22 completed Not Available Not Available Not Available methocarbam ol 750 mg tablet TAKE 1 TABLET BY MOUTH FOUR TIMES DAILY NEEDED FOR MUSCLE SPASMS 03/22 completed Not Available Not Available Not Available benzonatate 100 mg capsule 06/21 completed Not Available Not Available Not Available cephalexin 500 mg capsule TAKE 1 CAPSULE BY MOUTH EVERY 8 HOURS FOR 10 DAYS 03/22 completed Not Available Not Available Not Available erythromyci n 5 mg/gram (0.5 %) eye ointment APPLY 1/2 INCH IN EACH EYE FOUR TIMES DAILY FOR 7 DAYS active Not Available Not Available No t Available omeprazole 20 mg capsule,del ayed release active Not Available Not Available Not Available diclofenac sodium 75 mg tablet,bayron yed release 03/22 completed Not Available Not Available Not Available mupirocin 2 % topical ointment APPLY SPARINGLY TO THE AFFECTED AREA THREE TIMES DAILY FOR 10 DAYS 03/22 completed Not Available Not Available Not Available cefuroxime axetil 500 mg tablet 06/22 completed Not Available Not Available Not Available ondansetron 4 mg disintegrat ing tablet DISSOLVE 1 TABLET ON THE TONGUE EVERY 8 HOURS NEEDED FOR NAUSEA OR VOMITING 06/22 completed Not Available Not Available Not Available magnesium active Not Available Not Marcie ilable Not Available Vitamin D active Not Available Not Marcie ilable Not Available Zyrtec active Not Available Not Availa ble Not Available Eliquis 5 mg tablet 06/22 completed Not Available Not Available Not Available Eliquis active Not Available Not Avail able Not Available Paxlovid 300 mg (150 mg x 2)-100 mg tablets in a dose pack TK 2 NIRMATREL VIR TS AND 1 RITONAVIR T TOGETHER PO BID FOR 5 DAYS 06/22 completed Not Available Not Available Not Available Vitals Date Recorded Body height Body mass index (BMI) Body weight Provider Name and Address Organization Details Last Updated DateTime 03/22/2024 168.91 cm 41.3 kg/m2 764756.02 g Marcial Boo [facility] 03/22/2024 14:46:11 Date Recorded Body height Body mass index (BMI) Body weight Provider Name and Address Organization Details Last Updated DateTime 04/26/2024 168.91 cm 41.3 kg/m2 015889.02 g Marcial Boo [facility] 04/26/2024 15:10:37 Date Recorded Body height Body mass index (BMI) Body weight Provider Name and Address Organization Details Last Updated DateTime 06/21/2024 168.91 cm 41.3 kg/m2 656521.02 g Marcial Boo [facility] 06/21/2024 15:33:58 Date Recorded Body height Body mass index (BMI) Body weight Provider Name and Address Organization Details Last Updated DateTime 09/13/2024 168.91 cm 41.3 kg/m2 628058.02 g Vika Bin [facility] 09/13/2024 13:11:12 Date Recorded Body height Body mass index (BMI) Body weight Provider Name and Address Organization Details Last Updated DateTime 12/15/2023 168.91 cm 41.3 kg/m2 384636.02 umer Sandy Niki [facility] 12/15/2023 15:59:10 Social History Question Answer Notes LastModified by [employer] Details LastModified Time Tobacco Smoking Status Never Smoker Vika [facility] 09/13/2024 13:11:43 What Is Your Relationship Status? [email or web address] Information not available 09/13/2024 Sex: Unknown Functional Status Question Answer Note LastModified by [employer] Details LastModified Time How many times per week do you consume alcohol? Less than 1 time per week Information not available 09/13/2024 Do you use any illicit or recreational drugs? No [email or web address] Information not available 09/13/2024 What is your level of alcohol consumption? Occasional [email or web address] Information not available 09/13/2024 Mental Status None recorded. Family History Nothing Reported. Medical History Condition Response Allergies/Hayfever Y Acid Reflux (GERD) Y Thyroid Problems Y Blood Clot Y Gynecological HistoryNo gynecological history recorded. Obstetrics History GPAL:G 0 P 0 0 0 0 Past Encounters Encounter ID Performer Location Encounter Start Date Encounter Closed Date Diagnosis/Indication Diagnosis SNOMED-CT Code Diagnosis ICD10 Code Diagnosis IMO Codes Diagnosis Note [id number] BHAVIN Randall [address] [place] [address] 06/23/2023 15:12:39 06/23/2023 16:00:32 Osteoarthritis of left knee joint 6737934581 96259 M17.12 Nature of the diagnosis discussed with the patient today. Both surgical and nonsurgica l options were reviewed. At this point I have recommende d a repeat cortisone injection. Patient agrees with this plan. Patient tolerated the procedure well. Post injection precaution s reviewed. They will continue with conservati ve modalities including icing and elevating. Follow-up with us in 3 months for discussion of continued conservati ve management versus total joint arthroplas ty. [id number] BHAVIN Randall [address] [place] [address] 12/15/2023 15:40:58 01/11/2024 08:04:27 Osteoarthritis of left knee joint 5620324098 19361 M17.12 Nature of the diagnosis discussed with the patient today. Both surgical and nonsurgica l options were reviewed. At this point I have recommende d a repeat cortisone injection. Patient agrees with this plan. Patient tolerated the procedure well. Post injection precaution s reviewed. They will continue with conservati ve modalities including icing and elevating. Follow-up with us in 3 months for discussion of continued conservati ve management versus total joint arthroplas ty. Reviewed the second opinion referral process for total joint replacemen ts done by outside facilities . [id number] BHAVIN Randall [address] [place] [address] 03/22/2024 14:39:52 04/01/2024 10:46:15 Osteoarthritis of left knee joint 3555492787 12924 M17.12 Nature of the diagnosis discussed with the patient today. Both surgical and nonsurgica l options were reviewed. At this point I have recommende d a repeat cortisone injection. Patient agrees with this plan. Patient tolerated the procedure well. Post injection precaution s reviewed. They will continue with conservati ve modalities including icing and elevating. Follow-up with us in 3 months for discussion of continued conservati ve management versus total joint arthroplas ty. [id number] BHAVIN Randall [address] [place] [address] 04/26/2024 14:59:45 05/11/2024 14:15:50 Pain of right shoulder region 8612343687 M25.511 82471674 Impingemen t syndrome of right shoulder region 4228681900 74124 M75.41 5200480 Subacromia l impingement 937868485 M75.41 66868884 PLAN: Patient has positive impingemen t testing with subsequent limited range of motion. I discussed nature patient's diagnosis and imaging in detail with the patient. I recommend rest, ice, and activity modificati ons. I also recommend corticoste roid injection into the subacromia l space to help improve pain and symptoms so that patient is better able to participat e in physical therapy and range of motion exercises. Patient was provided with formal physical therapy prescripti on to help improve shoulder kinetics, strength and overall function. Patient was advised to make use of oral anti-infla mmatories and participat e with home range of motion exercises as well. Patient will follow up with us in as needed, or if symptoms worsen/do not improve with conservati ve care. [id number] BHAVIN Randall [address] [place] [address] 06/21/2024 15:27:54 07/01/2024 10:43:08 Osteoarthritis of left knee joint 9632548287 75587 M17.12 Nature of the diagnosis discussed with the patient today. Both surgical and nonsurgica l options were reviewed. At this point I have recommende d a repeat cortisone injection. Patient agrees with this plan. Patient tolerated the procedure well. Post injection precaution s reviewed. They will continue with conservati ve modalities including icing and elevating. Follow-up with us in 3 months for discussion of continued conservati ve management versus total joint arthroplas ty. [id number] BHAVIN Randall [address] [facility] [place] [address] 09/13/2024 13:00:07 09/28/2024 09:19:37 Osteoarthritis of left knee joint 8395317291 18120 M17.12 Nature of the diagnosis discussed with the patient today. Both surgical and nonsurgica l options were reviewed. At this point I have recommende d a repeat cortisone injection. Patient agrees with this plan. Patient tolerated the procedure well. Post injection precaution s reviewed. They will continue with conservati ve modalities including icing and elevating. Follow-up with us in 3 months for discussion of continued conservati ve management versus total joint arthroplas ty. Health Concerns Section Related Observation LastModified by Organization Detai ls LastModified Time None Recorded Concern Status LastModified by Organization Details LastModified Time None Recorded Advance Directives Directive None Recorded Payers Insurance Date Sequence Insurance Name Policy Number Policy Garzon Covered Member ID Garzon Member ID Guarantor Name 01/24/2025 1 [place]IC[place]: [employer] Valerie Gregory [id number] Valerie Gregory 12/14/2024 2 FOR LIFE ( - MEDICARE SUPPLEMENT) Valerie Gregory [id number] Valerie Gregory Notes Date Note Type Note Provider Name and Address Organization Details Recorded Time 12/15/2023 text/html ROS as noted in the HPI I am seeing the patient under the general supervision of Dr. Kay who was available but who did not see the patient. HPI: Patient presents today for recheck of left knee osteoarthritis. Is known to have arthritis treated conservatively with intermittent cortisone injections every 3 months as needed. No new injury or modalaties. Last injection(s) were 06/23/23 with me, but she did have an injection over the summer with her orthopedist in [place] while visiting her daughter. She is reporting chronic pain to the right knee where she had a TKA by a doctor in [place] for which she is hoping to get a second opinion with our office for further workup. Krystal Kendrick PA-C [address], [place], [address], [facility] 12/15/2023 16:21:53 03/22/2024 text/html ROS as noted in the HPI I am seeing the patient under the general supervision of Dr. Kay who was available but who did not see the patient. HPI: Patient presents today for recheck of left knee osteoarthritis. Is known to have arthritis treated conservatively with intermittent cortisone injections every 3 months as needed. No new injury or modalaties. Last injection(s) were 12/15/23 with me, but she did have an injection over the summer with her orthopedist in [place] while visiting her daughter. Krystal Kendrick PA-C [address], [place], [address], [facility] 03/22/2024 15:11:31 04/26/2024 text/html ROS as noted in the HPI I am seeing the patient under the general supervision of Dr. Kay who was available but who did not see the patient. HPI:Patient is a 74 year old female who presents today with chief complaint of right shoulder pain. She reports pain starting in the fall of 2023. 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 She reports pain which is worse at night. She has found that placing a pillow behind her shoulder improves the pain. Pain is worse with overhead activities but she is able to still brush her hair. She is right hand dominant. Does not feel particularly weak to her. No initating fall, injury or trauma. No numbness or tingling. DIAGNOSTIC IMAGIN view right shoulder radiographs were ordered, obtained and independently reviewed by myself during today's visit at [facility] and demonstrate well-preserved glenohumeral joint space. AC joint space narrowing with early degenerative changes. No fracture or dislocation. No calcifications. Impression: Mild AC joint arthritis Krystal Kendrick PA-C [address], [place], [address], [facility] 04/26/2024 15:54:08 06/21/2024 text/html ROS as noted in the HPI I am seeing the patient under the general supervision of Dr. Kay who was available but who did not see the patient. HPI: Patient presents today for recheck of left knee osteoarthritis. Is known to have arthritis treated conservatively with intermittent cortisone injections every 3 months as needed. No new injury or modalaties. Last injection(s) were 03/22/24 . Krystal Kendrick PA-C [address], [place], [address], [facility] 06/21/2024 15:53:37 09/13/2024 text/html ROS as noted in the HPI I am seeing the patient under the general supervision of Dr. Kay who was available but who did not see the patient. HPI: Patient presents today for recheck of left knee osteoarthritis. Is known to have arthritis treated conservatively with intermittent cortisone injections every 3 months as needed. No new injury or modalaties. Last injection(s) were 06/21/24 . Krystal Kendrick PA-C [address], [place], [address], [facility] 09/13/2024 13:34:57 OBGyn Episode No OBEpisode recorded.
--- OUTSIDE RECORDS SUMMARY | 2025-02-28 19:34 | XMS_ITS | Encounter Summary ---
Author Organization [facility] Address [address] [place] [address] Phone Care Team Providers Care Dispensing And Measuring Optician Name Role Phone Uriel Estrella MD Primary Care Provider Debby Ernst MD Unavailable Joni Jenkins MD Unavailable [phone] Amrita Vincent MD Unavailable Uriel Estrella MD Unavailable Encounter Details Date Type Department Care Team (Late st Contact Info) Description 02/27/2025 Telephone [facility] [address] [place], [place] [id number] Uriel Estrella MD [address] [place], [place] [id number] [email or web address] Social History Tobacco Use Types Packs/Day Years [...] on file documented as of this encounter Progress Notes * Cuauhtemoc Johns - 02/27/2025 3:04 PM EST Patient is aware. documented in this encounter Plan of Treatment Upcoming Encounters Date Type Department Care Team (Late st Contact Info) Description 03/13/2025 Procedure Pass [facility] Endoscopy Admitting Dept Virtual Department [address] [place] [address] 03/13/2025 10:30 AM EST Hospital Encounter [facility] Admitting [facility] Virtual Department [address] [place] [address] Joni Jenkins MD [address] [place] [address] 03/13/2025 10:30 AM EST - 03/13/2025 11:00 AM EST Surgery [facility] Endoscopy Admitting Dept Virtual Department [address] [place] [address] Joni Jenkins MD [address] [place] [address] COLONOSCOPY 05/19/2025 3:30 PM EST Office Visit [facility] [address] [place] [address] Uriel Estrella MD [address] [place] [address] 08/10/2025 3:40 PM EDT Office Visit [facility] [address] [place] [address] Amrita Vincent MD [address] [place] [address] [email or web address] Scheduled Procedures Name Priority Associated Diagnoses Date/Ti me COLONOSCOPY GERD without esophagitis 03/13/2025 10:30 AM EST documented as of this encounter Goals Goal Patient Goal Type Associated Problems Recent Progress Patient-Stated? Author Autogenerat ed Goal Care Plan Autogenerated Problem No Carolina Love RN documented as of this encounter Results * (ABNORMAL) Urinalysis with Reflex to Urine Culture (02/27/2025 3:46 PM EST) Color Yellow Yellow 02/27/2025 8:48 PM [facility] Clarity Cloudy(A) Clear 02/27/2025 8:48 PM EST [facility] Glucose Negative Negative 02/27/2025 8:48 PM [facility] Bilirubin Urine Negative Negative 8:48 PM [facility] Ketone Urine Negative Negative 02/27/2025 8:48 PM [facility] Specific Dows 1.025 1.001 - 1.035 02/27/2025 8:48 PM [facility] Blood 2+(A) Negative 02/27/2025 8:48 PM [facility] pH 6.0 5.0 - 8.0 02/27/2025 8:48 PM [facility] Protein 1+(A) Negative 02/27/2025 8:48 PM [facility] Nitrites Negative Negative 02/27/2025 8:48 PM [facility] Leukocyte Esterase 2+(A) Negative 02/27/2025 8:48 PM [facility] Urobilinogen Negative Negative 02/27/2025 8:48 PM [facility] Urine (Urine, Voided) Non-Blood Collection / Unknown 02/27/2025 3:46 PM EST 02/27/2025 3:46 PM EST us Uriel Estrella MD LAB URINE ORDERABLES Final Re sult [address] [address] documented in this encounter Visit Diagnoses Diagnosis Dysuria- Primary GERD without esophagitis Esophageal reflux documented in this encounter Additional Health Concerns Active Problems Noted Date Diagnosed Date Autogenerated Problem 02/24/2025 Assessment Noted Time PHQ-2 Depression Total Score: 1 02/27/20 25 6:36 PM EST documented as of this encounter Care Teams Dispensing And Measuring Optician Relationship Specialty Start Date End Date Uriel Estrella MD [address] [place] [address] PCP - General 02/12/17 Debby Ernst MD [address] [address] Obstetrics and Gynecology 03/20/20 Joni Jenkins MD [address] [address] Gastroenterology 03/20/20 Amrita Vincent MD [address] [address] luis Endocrinology 10/23/20 Uriel Estrella MD [address] [place] [address] Insurance Assigned Provider 06/20/23 documented as of this encounter Additional Source Comments The information contained in this document represents components of the legal health record. It is not the complete legal health record.[facility]
--- OUTSIDE RECORDS SUMMARY | 2025-02-28 19:34 | XMS_ITS | Encounter Summary ---
Author Organization [facility] Address [address] [place] [address] Phone Care Team Providers Care Aircraft Accessories Mechanic Name Role Phone Uriel Estrella MD Primary Care Provider Debby Ernst MD Unavailable Joni Jenkins MD Unavailable [phone] Amrita Vincent MD Unavailable Uriel Estrella MD Unavailable Reason for Visit * Reason Comments Medication Refill Encounter Details Date Type Department Care Team ([facility] st Contact Info) Description 02/23/2025 Refill [facility] G[facility]enterology [facility] [address] [place] [address] Joni Jenkins MD [address] [place] [address] [email or web address] Medication Refill Social History Tobacco Use Types Packs/Day Years [...] as of this encounter Progress Notes * Rigo Holm - 02/24/2025 8:52 AM EST Rx Care Gap Status - Instructions for Clinical Staff (prescriber discretion applies): > Mismatch review guide > At least one request does not meet full criteria. Specifics below. > No recent or future appts: Please review request for appropriateness. Visit Info Last visit: 07/26/2024 > Requested f/u: Not specified Upcoming visit: None ACTIONS TAKEN BY Rigo Holm - Visit needed - Scheduled; sent msg to FD; and/or reminded pt. Gastrointestinal Rx Protocol (H2 blockers, PPIs, stool softeners, laxatives) - omeprazole Criteria not met; renew for up to 3 months. Visit in the past 24 months: No Last picked up 10/13/2024 Last follow up 07/26/2024 documented in this encounter Plan of Treatment Upcoming Encounters Date Type Department Care Team (Late st Contact Info) Description 03/13/2025 Procedure Pass [facility] Endoscopy Admitting Dept Virtual Department [address] [place] [address] 03/13/2025 10:30 AM EST Hospital Encounter [facility] Endoscopy Admitting Dept Virtual Department [address] [place] [address] Joni Jenkins MD [address] [place] [address] 03/13/2025 10:30 AM EST - 03/13/2025 11:00 AM EST Surgery [facility] Endoscopy Admitting Dept Virtual Department [address] [place] [address] Joni Jenkins MD [address] [place] [address] COLONOSCOPY 05/19/2025 3:30 PM EST Office Visit [facility] [address] [place] [address] Uriel Estrella MD 40 [place] [address] 08/10/2025 3:40 PM EDT Office Visit [facility]inology [facility] [address] [place] [address] Amrita Vincent MD [address] [address] luis Scheduled Procedures Name Priority Associated Diagnoses Date/Ti me COLONOSCOPY GERD without esophagitis 03/13/2025 10:30 AM EST documented as of this encounter Visit Diagnoses Diagnosis Gastroesophageal reflux disease- Primary Esophageal reflux GERD without esophagitis Esophageal reflux documented in this encounter Additional Health Concerns Assessment Noted Time PHQ-2 Depression Total Score: 1 05/05/19 11:45 AM EST documented as of this encounter Care Teams Aircraft Accessories Mechanic Relationship Specialty Start Date End Date Uriel Estrella MD [address] [place] [address] PCP - General 02/12/17 Debby Ernst MD [address] [address] Obstetrics and Gynecology 03/20/20 Joni Jenkins MD [address] [address] Gastroenterology 03/20/20 Amrita Vincent MD [address] [address] luis Endocrinology 10/23/20 Uriel Estrella MD [address] [place] [address] Insurance Assigned Provider 06/20/23 documented as of this encounter Additional Source Comments The information contained in this document represents components of the legal health record. It is not the complete legal health record.[facility]
--- OUTSIDE RECORDS SUMMARY | 2025-02-28 19:34 | XMS_ITS | Encounter Summary ---
Author Organization [facility] Address [address] [place] [address] Phone Care Team Providers Care Bike Shop Manager Name Role Phone Uriel Estrella MD Primary Care Provider Debby Ernst MD Unavailable Joni Jenkins MD Unavailable [phone] Amrita Vincent MD Unavailable [phone] Uriel Estrella MD Unavailable Reason for Visit * Reason Comments Medication Refill Encounter Details Date Type Department Care Team ([facility] st Contact Info) Description 02/23/2025 Refill [facility] Endocrinology Clinic [address] [place] [address] Amrita Vincent MD [address] [place] [address] [email or web address] Medication Refill Social History Tobacco Use Types Packs/Day Years Used Date Smoking Tobacco: Former Cigarettes 0.5 2 1 978 - 1979 Smokeless Tobacco: Never Alcohol Use Standard Drinks/Week [...] as of this encounter Progress Notes * Kallie Duong RN - 02/27/2025 4:18 PM EST I spoke with patient, states has been doing what you advised- 1 tablet daily for 6 days out of the week, and 1.5 tablets on Sundays. She just got blood work done at our [place] lab today, results in process. She says to let her know what you would like her to do based off these results. * Amrita Vincent MD - 02/24/2025 11:15 AM EST Pls confirm with pt what she has been taking, I had advised going to 1 tablet six days, 1.5 on ,per her last msg was dong 2/day on the 7th day & not sure if we got back to her on that. Would continue what she is doing & would repeat labs once has been on that dose for ~ 2 months. * Selene José - 02/24/2025 10:49 AM EST Rx Care Gap Status - Instructions for Clinical Staff (prescriber discretion applies): > Mismatch review guide > At least one request does not meet full criteria. Specifics below. > No future appt: Please schedule if appropriate. > Labs due: Please remind patient. > No new orders needed. TSH Visit Info Last visit: 08/11/2024 Amrita Vincent MD - Endocrinology [facility] > Requested f/u: Not specified Upcoming visit: None ACTIONS TAKEN BY Selene José - Last TSH was abnormal Thyroid Medication Rx Protocol - levothyroxine sodium Criteria not met; renew for up to 3 months. Visit in the past 14 months: Yes Clinical criteria: - TSH within past year: Yes - Last TSH was normal: No Repeat labs and adjust clinical management as appropriate. Lab Results Component Value Date TSH 45.00 (H) 12/21/2024 FREE T4 1.1 12/21/2024 No Health Maintenance Labs Overdue documented in this encounter Plan of Treatment Upcoming Encounters Date Type Department Care Team (Late st Contact Info) Description 03/13/2025 Procedure Pass [facility] Endoscopy Admitting Dept Virtual Department [address] [place] [address] 03/13/2025 10:30 AM EST Hospital Encounter [facility] Endoscopy Admitting Dept Virtual Department [address] [place] [address] Joni Jenkins MD [address] [address] 03/13/2025 10:30 AM EST - 03/13/2025 11:00 AM EST Surgery [facility] Endoscopy Admitting Dept Virtual Department [address] [place] [address] Joni Jenkins MD [address] [address] COLONOSCOPY 05/19/2025 3:30 PM EST Office Visit [facility] [address] [place] [address] Uriel Estrella MD [address] [place] [address] 08/10/2025 3:40 PM EDT Office Visit [facility]ology [facility] [address] [place] [address] Amrita Vincent MD [address] [place] [address] luis Scheduled Procedures Name Priority Associated Diagnoses Date/Ti me COLONOSCOPY GERD without esophagitis 03/13/2025 10:30 AM EST documented as of this encounter Visit Diagnoses Diagnosis Acquired hypothyroidism Unspecified hypothyroidism GERD without esophagitis Esophageal reflux documented in this encounter Additional Health Concerns Assessment Noted Time PHQ-2 Depression Total Score: 1 05/05/19 11:45 AM EST documented as of this encounter Care Teams Bike Shop Manager Relationship Specialty Start Date End Date Uriel Estrella MD [address] [place] [address] [email or web address] PCP - General 02/12/17 Debby Ernst MD [address] [address] Obstetrics and Gynecology 03/20/20 Joni Jenkins MD [address] [address] [email or web address] Gastroenterology 03/20/20 Amrita Vincent MD [address] [address] luis Endocrinology 10/23/20 Uriel Estrella MD [address] [place] [address] [email or web address] Insurance Assigned Provider 06/20/23 documented as of this encounter Additional Source Comments The information contained in this document represents components of the legal health record. It is not the complete legal health record.[facility]
--- OUTSIDE RECORDS SUMMARY | 2025-02-28 19:34 | XMS_ITS | Encounter Summary ---
Author Organization [facility] Address [address] [facility] [address] [place] [address] Phone Care Team Providers Care Vehicle Upholsterer Name Role Phone Uriel Estrella MD Unavailable Uriel Estrella MD Unavailable [phone] Josefa Roque CHILD CARE COUNSELOR Unavailable [phone] Jenifer Watson CHILD CARE COUNSELOR Unavailable Phoebe Woodard CHILD CARE COUNSELOR Unavailable [phone] Uriel Estrella MD Primary Care Provider Debby Ernst MD Unavailable Joni Jenkins MD Unavailable [phone] Amrita Vincent MD Unavailable Uriel Estrella MD Unavailable Sheri Hernandez OT Unavailable [phone] Zully Adan RN Unavailable [phone] Encounter Details Date Type Department Care Team (Latest Contact Info) Description 07/03/2017 Transcribe Orders [facility] [place] [address] [place], [place] [phone] Uriel Estrella MD [address] [place], [place] [phone] Myxedema heart disease (Primary Dx) Social History Tobacco Use Types Packs/Day Years Used Date Smoking Tobacco: Never Assessed Comments Unknown Sex and Gender Information Value Date Recorded Sex Assigned at Not on file Legal Sex Female 10:02 PM EDT Gender Identity Not on file Sexual Orientation Not on file documented as of this encounter Plan of Treatment Upcoming Encounters Date Type Department Care Team (Late st Contact Info) Description 03/13/2025 Procedure Pass [facility] Endoscopy Admitting Dept Virtual Department [address] [place] [address] 03/13/2025 10:30 AM EST Hospital Encounter [facility] Admitting Dept Virtual Department [address] [place] [address] Joni Jenkins MD [address] [place] [address] 03/13/2025 10:30 AM EST - 03/13/2025 11:00 AM EST Surgery [facility] Endoscopy Admitting Dept Virtual Department [address] [place] [address] Joni Jenkins MD [address] [place] [address] COLONOSCOPY 05/19/2025 3:30 PM EST Office Visit [facility] [address] [place] [address] Uriel Etsrella MD 40 [place] [address] 08/10/2025 3:40 PM EDT Office Visit [facility] Endocrinology [facility] [address] [place] [address] Amrita Vincent MD [address] [place] [address] luis [email or web address] [email or web address] Procedures Name Priority Associated Diagnoses Date/Ti me COLONOSCOPY GERD without esophagitis 03/13/2025 10:30 AM EST documented as of this encounter Results * Free T4 (07/03/2017 11:55 AM EDT) FREE T4 1.4 0.9 - 1.7 ng/dL [facility] Blood 07/03/2017 11:5 5 AM EDT 07/03/2017 11:58 AM EDT Uriel Estrella MD LAB BLOOD BKR ORDERABLES [facility] Result [address] [address] * TSH (07/03/2017 11:55 AM EDT) TSH 1.35 0.27 - 4.20 uIU/mL [facility] Blood 07/03/2017 11:5 5 AM EDT 07/03/2017 11:58 AM EDT Uriel Estrella MD LAB BLOOD BKR ORDERABLES [facility] Result [address] [address] documented in this encounter Visit Diagnoses Diagnosis Myxedema heart disease- Primary Unspecified hypothyroidism GERD without esophagitis Esophageal reflux [...] Resp-Risk 02/11/2025 02/11/2025 02/22/2025 7:06 PM EST documented as of this encounter Care Teams Vehicle Upholsterer Relationship Specialty Start Date End Date Uriel Estrella MD 40 [place] [address] PCP - General 02/12/17 Uriel Estrella MD [address] [place] [address] Insurance Assigned Provider 12/20/16 03/24/20 Uriel Estrella MD 40 [place] [address] Historical LMR Provider 01/03/17 10/22/20 Josefa Roque CHILD CARE COUNSELOR [address] [place] [address] [email or web address] Historical LMR Provider 01/03/17 10/22/20 Jenifer Watson, MAKAYLA [address] [place] [address] Historical LMR Provider 01/03/17 10/22/20 Phoebe Woodard NP [address] [place] [address] 6 [place] [address] Historical LMR Provider 01/03/17 10/22/20 Debby Ernst MD [address] [address] Obstetrics and Gynecology 03/20/20 Joni Jenkins MD [address] [address] Gastroenterology 03/20/20 Amrita Vincent MD [address] [address] luis Endocrinology 10/23/20 Uriel Estrella MD 40 [place] [address] Insurance Assigned Provider 06/20/23 Sheri Hernandez, OT [address] [place] [address] Transitions Special Procedures NurseUnit Nurse Therapy 05/19/22 05/19/22 Zully Adan, RN [address] [place] [address] [email or web address] Special Procedures Nurse 10/12/23 10/26/23 documented as of this encounter Additional Source Comments The information contained in this document represents components of the legal health record. It is not the complete legal health record.[facility]
--- OUTSIDE RECORDS SUMMARY | 2025-02-28 19:34 | XMS_ITS | Encounter Summary ---
Author Organization [facility] Address [address] [facility] [address] [place] [address] Phone Care Team Providers Care Metal Engraver Name Role Phone Uriel Estrella MD Primary Care Provider Debby Ernst MD Unavailable Joni Jenkins MD Unavailable [phone] Amrita Vincent MD Unavailable Uriel Estrella MD Unavailable [phone] Encounter Details Date Type Department Care Team (Late st Contact Info) Description 07/22/2024 Procedure Pass [facility], Ct Scan - [address] [address] Social History Tobacco Use Types Packs/Day Years [...] got money to buy more. Never True 07/22/2024 Within the past 6 months the food we bought just didn't last and we didn't have enough money to get more. Never True Residential Stability Answer Date Recor ded What is your housing situation today? I have jack hubbard 07/22/2024 How many times have you move d in the past 12 months? Zero (I did not move) 07/22/2024 Paying for Meds Answer Date Recorded Do you have trouble paying for medicines? No 07/22/2024 Paying Utility Bills Answer Date Record ed Do you have trouble paying your heating or elect ricity bill? No 07/22/2024 Transportation Answer Date Recorded Has the lack of transportati on kept you from medical appointments or from getting medications? No 07/22/2024 Digital Access Answer Date Recorded No 07/22/2024 Yes 07/22/2024 Do you have reliable internet access at home? Ye s 07/22/2024 Do you have a device (e.g., phone, tablet, computer) with a working camera? Yes 07/22/2024 Intimate Partner Violence Answer Date R ecorded Are you denied basic needs s uch as food, clothing, or medical care? No 07/22/2024 In the past 12 months have y ou been in a relationship with a person who hurts, threatens, or tries to control you? No 07/22/2024 Are you denied basic needs s uch as food, clothing, or medical care? No 07/22/2024 In the past 12 months have y ou been in a relationship with a person who hurts, threatens, or tries to control you? No 07/22/2024 Comments No Sex and Gender Information Value Date Recorded Sex Assigned at Not on file Legal Sex Female 10:02 PM EDT Gender Identity Not on file Sexual Orientation Not on file documented as of this encounter Functional Status * Calculated C-SSRS Risk Score (Lifetime/Recent) Answer Date of Assessment Author No Risk Indicated 07/22/2024 4:03 PM EDT Kelli Barcenas RN * Hobbs Suicide Severity Rating Scale (Screener/Recent Self-Report) Question Answer Date of Assessment Author 1. Wish to be (Past 1 Month) No 025 4:03 PM EDT Kelli Barcenas RN 2. Non-Specific Active Suici jeffery Thoughts (Past 1 Month) No 07/22/2024 4:03 PM EDT Alek Barcenas RN 6. Suicidal Behavior (Lifetime) No 4:03 PM EDT Kelli Barcenas RN documented as of this encounter Plan of Treatment Upcoming Encounters Date Type Department Care Team (Late st Contact Info) Description 03/13/2025 Procedure Pass [facility] Endoscopy Admitting Dept Virtual Department [address] [place] [address] 03/13/2025 10:30 AM EST Hospital Encounter [facility] Admitting Dept Virtual Department [address] [place] [address] Joni Jenkins MD [address] [address] 03/13/2025 10:30 AM EST - 03/13/2025 11:00 AM EST Surgery [facility] Endoscopy Admitting Dept Virtual Department [address] [place] [address] Joni Jenkins MD [address] [place] [address] COLONOSCOPY 05/19/2025 3:30 PM EST Office Visit [facility] [address] [place] [address] Uriel Estrella MD 40 [place] [address] 08/10/2025 3:40 PM EDT Office Visit [facility] [address] [place] [address] Amrita Vincent MD [address] [place] [phone] luis Scheduled Procedures Name Priority Associated Diagnoses Date/Ti me COLONOSCOPY GERD without esophagitis 03/13/2025 10:30 AM EST documented as of this encounter Visit Diagnoses Not on filedocumented in this encounter Additional Health Concerns Infection Onset Date Last Indicated Resolved Time CoV-Risk 07/22/2024 07/22/2024 08/02/2024 1:21 AM EDT Resp-Risk 02/11/2025 02/11/2025 02/22/2025 7:06 PM EST Assessment Noted Time PHQ-2 Depression Total Score: 1 05/05/19 11:45 AM EST documented as of this encounter Care Teams Metal Engraver Relationship Specialty Start Date End Date Uriel Estrella MD 40 [place] [address] PCP - General 02/12/17 Debby Ernst MD [address] [address] Obstetrics and Gynecology 03/20/20 Joni Jenkins MD [address] [address] Gastroenterology 03/20/20 Amrita Vincent MD [address] [address] luis Endocrinology 10/23/20 Uriel Estrella MD 40 [place] [address] Insurance Assigned Provider 06/20/23 documented as of this encounter Additional Source Comments The information contained in this document represents components of the legal health record. It is not the complete legal health record.[facility]
--- OUTSIDE RECORDS SUMMARY | 2025-02-28 19:34 | XMS_ITS | Encounter Summary ---
Author Organization [facility] Address [address] [facility] [address] [place] [address] Phone Care Team Providers Care Leasing Assistant Name Role Phone Uriel Estrella MD Unavailable Josefa Roque PILL MACHINE OPERATOR Unavailable Jenifer Watson PILL MACHINE OPERATOR Unavailable Phoebe Woodard PILL MACHINE OPERATOR Unavailable [phone] Uriel Estrella MD Primary Care Provider Debby Ernst MD Unavailable Joni Jenkins MD Unavailable [phone] Amrita Vincent MD Unavailable [phone] Uriel Estrella MD Unavailable Sheri Hernandez OT Unavailable Zully Adan RN Unavailable Encounter Details Date Type Department Care Team (Late st Contact Info) Description 03/29/2020 Ancillary Orders [facility],Outside Imaging [address] [place], [place] [id number] System, Provider Not In, PhD Partners [address] [address] Social History Tobacco Use Types Packs/Day Years Used Date Smoking Tobacco: Former Cigarettes 0.5 2 1 978 - 1980 Smokeless Tobacco: Never Alcohol Use Standard Drinks/Week Comments Yes 0 [...] Pass [facility] Endoscopy Admitting Dept Virtual Department [address] [place] [address] 03/13/2025 10:30 AM EST Hospital Encounter [facility] Endoscopy Admitting Dept Virtual Department [address] [place] [address] Joni Jenkins MD [address] [address] 03/13/2025 10:30 AM EST - 03/13/2025 11:00 AM EST Surgery [facility] Endoscopy Admitting Dept Virtual Department [address] [place] [address] Joni Jenkins MD [address] [address] COLONOSCOPY 05/19/2025 3:30 PM EST Office Visit [facility] [address] [place] [address] Uriel Estrella MD [address] [place] [address] 08/10/2025 3:40 PM EDT Office Visit [facility] Endocrinology Clinic [address] [place] [address] [place] [address] Amrita Vincent MD [address] [place] [address] luis Scheduled Procedures Name Priority Associated Diagnoses Date/Ti me COLONOSCOPY GERD without esophagitis 03/13/2025 10:30 AM EST documented as of this encounter Results * CT Abdomen/Pelvis Outside (No Interpretation) (03/08/2020 12:00 AM EST) Narrative SYSTEMGENERATED, DOCUMENTATION - 03/29/2020 10:46 AM EST This study is for PACS storage only and not for interpretation. us Provider Not In System PhD IMG OUTSIDE IMAGING W /OUT INTERPRETATION Final Result documented in this encounter Visit [...] Noted Time PHQ-2 Depression Total Score: 2 03/20/19 3:27 PM EST documented as of this encounter Care Teams Leasing Assistant Relationship Specialty Start Date End Date Uriel Estrella MD 40 [place] [address] PCP - General 02/12/17 Uriel Estrella MD [address] [place] [address] Historical LMR Provider 01/03/17 10/22/20 Josefa Roque PILL MACHINE OPERATOR [address] [place] [address] [email or web address] Historical LMR Provider 01/03/17 10/22/20 Jenifer Watson, MAKAYLA [address] [place] [address] 104 [place] [address] Historical LMR Provider 01/03/17 10/22/20 Phoebe Woodard NP [address] [place] [address] 6 [place] [address] Historical LMR Provider 01/03/17 10/22/20 [place] [address] [place] [address] Obstetrics and Gynecology 03/20/20 Joni Jenkins MD [address] [address] Gastroenterology 03/20/20 Amrita Vincent MD [address] [place] [address] luis Endocrinology 10/23/20 Uriel Estrella MD [address] [place] [address] Insurance Assigned Provider 06/20/23 Sheri Hernandez, OT 30 [place] [address] [email or web address] Transitions Stable HelperMarine Operations Coordinator Therapy 05/19/22 05/19/22 Zully Adan, RN 10 [place] [address] [email or web address] PHCM Stable Helper 10/12/23 10/26/23 documented as of this encounter Additional Source Comments The information contained in this document represents components of the legal health record. It is not the complete legal health record.[facility]
--- OUTSIDE RECORDS SUMMARY | 2025-02-28 19:34 | XMS_ITS | Encounter Summary ---
Author Organization [facility] Address [address] [employer] [facility] [address] [place] [address] Phone Care Team Providers Care Security Tech Name Role Phone Uriel Estrella MD Primary Care Provider Debby Ernst MD Unavailable Joni Jenkins MD Unavailable [phone] Amrita Vincent MD Unavailable Uriel Estrella MD Unavailable [phone] Encounter Details Date Type Department Care Team (Late st Contact Info) Description 09/12/2024 Procedure Pass [facility], [address] [address] Social History Tobacco Use Types Packs/Day Years [...] housing situation today? I have jack sing 07/22/2024 How many times have you move [...] Pass [facility] Endoscopy Admitting Dept Virtual Department [address] [place] [address] 03/13/2025 10:30 AM EST Hospital Encounter [facility] Endoscopy Admitting Dept Virtual Department 30 [place] [address] Joni Jenkins MD [address] [place] [address] 03/13/2025 10:30 AM EST - 03/13/2025 11:00 AM EST Surgery [facility] Endoscopy Admitting Dept Virtual Department 30 [place] [address] Joni Jenkins MD [address] [place] [address] [address] [place] [address] COLONOSCOPY 05/19/2025 3:30 PM EST Office Visit [facility] 40 [place], [place] [phone] Uriel Estrella MD 40 [place] [address] 08/10/2025 3:40 PM EDT Office Visit [facility] Endocrinology Clinic [address] [place] [address] Amrita Vincent MD [address] [place] [address] [email or web address] Scheduled Procedures Name Priority Associated Diagnoses Date/Ti me COLONOSCOPY GERD without esophagitis 03/13/2025 10:30 AM EST documented as of this encounter Visit Diagnoses Not on filedocumented in this encounter Additional Health Concerns Infection Onset Date Last Indicated Resolved Time Resp-Risk 02/11/2025 02/11/2025 02/22/2025 7:06 PM EST Assessment Noted Time PHQ-2 Depression Total Score: 1 05/05/19 11:45 AM EST documented as of this encounter Care Teams Security Tech Relationship Specialty Start Date End Date Uriel Estrella MD 40 [place] [address] PCP - General 02/12/17 Debby Ernst MD [address] [address] Obstetrics and Gynecology 03/20/20 Joni Jenkins MD [address] [address] Gastroenterology 03/20/20 Amrita Vincent MD [address] [address] luis Endocrinology 10/23/20 Uriel Estrella MD [address] [place] [address] Insurance Assigned Provider 06/20/23 documented as of this encounter Additional Source Comments The information contained in this document represents components of the legal health record. It is not the complete legal health record.[facility]
--- OUTSIDE RECORDS SUMMARY | 2025-02-28 19:34 | XMS_ITS | Encounter Summary ---
Author Organization [facility] Address [address] [place] [address] Phone Care Team Providers Care Kettle Cook Name Role Phone Uriel Estrella MD Primary Care Provider [phone] Debby Ernst MD Unavailable Joni Jenkins MD Unavailable [phone] Amrita Vincent MD Unavailable Uriel Estrella MD Unavailable Reason for Visit * Reason Onset Date Comments Urinary Tract Infection 02/27/2025 Encounter Details Date Type Department Care Team (Late st Contact Info) Description 02/27/2025 Telephone [facility] 40 [place], [place] [phone] Jazmyne Mooney, ANAND 40 [place], [place] [phone] [email or web address] Urinary Tract Infection Social History Tobacco Use Types Packs/Day Years [...] Progress Notes * Cuauhtemoc Johns - 02/27/2025 3:02 PM EST Provider placed order for urine under separate encounter. Patient is aware lab is closing early. * Jazmyne Mooney RN - 02/27/2025 2:03 PM EST Images from the original note were not included. * Jazmyne Mooney RN - 02/27/2025 1:39 PM EST Tabby called and LVM. States she is coming for an appointment today. Plans to come in for the labs pre appointment. She is asking for a urinalysis to be ordered. States she is having burning, urgency, frequency for 2-3 days. No hematuria. She would like to have it done with her labs today. documented in this encounter Plan of Treatment Upcoming Encounters Date Type Department Care Team (Late st Contact Info) Description 03/13/2025 Procedure Pass [facility] Endoscopy Admitting Dept Virtual Department [address] [place] [address] 03/13/2025 10:30 AM EST Hospital Encounter [facility] Endoscopy Admitting Dept Virtual Department [address] [place] [address] Joni Jenkins MD [address] [place] [address] 03/13/2025 10:30 AM EST - 03/13/2025 11:00 AM EST Surgery [facility] Endoscopy Admitting Dept Virtual Department [address] [place] [address] Joni Jenkins MD [address] [place] [address] COLONOSCOPY 05/19/2025 3:30 PM EST Office Visit [facility] Primary [facility] [address] [place] [address] Uriel Estrella MD 40 [place] [address] 08/10/2025 3:40 PM EDT Office Visit [facility] Endocrinology [facility] [address] [place] [address] Amrita Vincent MD [address] [place] [address] [email or web address] Scheduled Procedures Name Priority Associated Diagnoses Date/Ti me COLONOSCOPY GERD without esophagitis 03/13/2025 10:30 AM EST documented as of this encounter Goals Goal Patient Goal Type Associated Problems Recent Progress Patient-Stated? Author Autogenerat ed Goal Care Plan Autogenerated Problem No Carolina Love, ANAND documented as of this encounter Visit Diagnoses Diagnosis Dysuria- Primary GERD without esophagitis Esophageal reflux documented in this encounter Additional Health Concerns Active Problems Noted Date Diagnosed Date Autogenerated Problem 02/24/2025 Assessment Noted Time PHQ-2 Depression Total Score: 1 02/27/20 25 6:36 PM EST documented as of this encounter Care Teams Kettle Cook Relationship Specialty Start Date End Date Uriel Estrella MD 40 [place] [address] PCP - General 02/12/17 Debby Ernst MD [address] [address] Obstetrics and Gynecology 03/20/20 Joni Jenkins MD [address] [address] Gastroenterology 03/20/20 Amrita Vincent MD [address] [place] [address] [email or web address] Endocrinology 10/23/20 Uriel Estrella MD [address] [place] [address] [email or web address] Insurance Assigned Provider 06/20/23 documented as of this encounter Additional Source Comments The information contained in this document represents components of the legal health record. It is not the complete legal health record.[facility]
--- OUTSIDE RECORDS SUMMARY | 2025-02-28 19:34 | XMS_ITS | Encounter Summary ---
Author Organization [facility] Address [address] [place] [address] Phone Care Team Providers Care Mercantile Agent Name Role Phone Uriel Estrella MD Primary Care Provider Debby Ernst MD Unavailable Joni Jenkins MD Unavailable [phone] Amrita Vincent MD Unavailable Urile Estrella MD Unavailable Encounter Details Date Type Department Care Team (Latest Contact Info) Description 02/27/[address] [facility] Gastroenterology Clinic [address] [place] [phone] Suzanne Vela, DUKE 10 [place] [address] [email or web address] History of adenomatous polyp (Primary Dx) Social History Tobacco Use Types [...] Upcoming Encounters Date Type Department Care Team ([facility] st Contact Info) Description 03/13/2025 Procedure Pass [facility] Endoscopy Admitting Dept Virtual Department 30 [place] [address] 03/13/2025 10:30 AM EST Hospital Encounter [facility] Endoscopy Admitting Dept Virtual Department 30 [place] [address] Joni Jenkins MD [address] [address] 03/13/2025 10:30 AM EST - 03/13/2025 11:00 AM EST Surgery [facility] Endoscopy Admitting Dept Virtual Department 30 [place] [address] Joni Jenkins MD [address] [address] COLONOSCOPY 05/19/2025 3:30 PM EST Office Visit [facility] Primary [facility] Clinic [address] [place] [address] Uriel Estrella MD 40 [place] [address] [email or web address] 08/10/2025 3:40 PM EDT Office Visit [facility] Endocrinology Clinic [address] [place] [address] Amrita Vincent MD [address] [place] [address] [email or web address] Scheduled Procedures Name Priority Associated Diagnoses Date/Ti me COLONOSCOPY GERD without esophagitis 03/13/2025 10:30 AM EST documented as of this encounter Goals Goal Patient Goal Type Associated Problems Recent Progress Patient-Stated? Author Autogenerat ed Goal Care Plan Autogenerated Problem No Carolina Love, ANAND documented as of this encounter Visit Diagnoses Diagnosis History of adenomatous polyp- Primary GERD without esophagitis Esophageal reflux documented in this encounter Additional Health Concerns Active Problems Noted Date Diagnosed Date Autogenerated Problem 02/24/2025 Assessment Noted Time PHQ-2 Depression Total Score: 1 02/27/20 25 6:36 PM EST documented as of this encounter Care Teams Mercantile Agent Relationship Specialty Start Date End Date Uriel Estrella MD 40 [place] [address] [email or web address] PCP - General 02/12/17 Debby Ernst MD [address] [address] Obstetrics and Gynecology 03/20/20 Joni Jenkins MD [address] [address] [email or web address] Gastroenterology 03/20/20 Amrita Vincent MD [address] [address] luis Endocrinology 10/23/20 Uriel Estrella MD 40 [place] [address] [email or web address] Insurance Assigned Provider 06/20/23 documented as of this encounter Additional Source Comments The information contained in this document represents components of the legal health record. It is not the complete legal health record.[facility]
--- OUTSIDE RECORDS SUMMARY | 2025-02-28 19:35 | XMS_ITS | Encounter Summary ---
Author Organization [facility] Address [address] [facility] [address] [place] [address] Phone Care Team Providers Care Vascular Tech Name Role Phone Uriel Estrella MD Unavailable Uriel Estrella MD Unavailable Josefa Roque MARKETING OUTREACH COORDINATOR Unavailable Jenifer Watson MARKETING OUTREACH COORDINATOR Unavailable [phone] Phoebe Woodard MARKETING OUTREACH COORDINATOR Unavailable [phone] Uriel Estrella MD Primary Care Provider Debby Ernst MD Unavailable Joni Jenkins MD Unavailable Amrita Vincent MD Unavailable Uriel Estrella MD Unavailable Sheri Hernandez OT Unavailable Zulyl Adan RN Unavailable Encounter Details Date Type Department Care Team (Latest Contact Info) Description 04/01/2017 Transcribe Orders [facility] Specimen Processing 30 [place] [address] Linden Beck MD Hypothyroidism following radioiodine therapy (Primary Dx) Social History Tobacco Use Types [...] Pass [facility] Endoscopy Admitting Dept Virtual Department [address] [place] [address] 03/13/2025 10:30 AM EST Hospital Encounter [facility] Endoscopy Admitting Dept Virtual Department [address] [place] [address] Joni Jenkins MD [address] [address] 03/13/2025 10:30 AM EST - 03/13/2025 11:00 AM EST Surgery [facility] Endoscopy Admitting Dept Virtual Department [address] [place] [address] Joni Jenkins MD [address] [address] COLONOSCOPY 05/19/2025 3:30 PM EST Office Visit [facility] Primary Care Clinic [address] [place] [address] Uriel Estrella MD 40 [place] [address] 08/10/2025 3:40 PM EDT Office Visit [facility] Endocrinology Clinic [address] [place] [address] [place] [address] Amrita Vincent MD [address] [place] [address] luis Scheduled Procedures Name Priority Associated Diagnoses Date/Ti me COLONOSCOPY GERD without esophagitis 03/13/2025 10:30 AM EST documented as of this encounter Results * TSH (04/01/2017 7:40 PM EST) TSH 2.32 0.27 - 4.20 uIU/mL [facility] Blood 04/01/2017 7:40 PM EST 04/01/2017 7:41 PM EST us Linden Beck MD LAB BLOOD BKR ORDERABLES Carito ferguson Result [facility] 30 [place] [address] documented in this encounter Visit Diagnoses Diagnosis Hypothyroidism following radioiodine therapy- Primary Other postablative hypothyroidism GERD without esophagitis Esophageal reflux documented [...] documented as of this encounter Care Teams Vascular Tech Relationship Specialty Start Date End Date Uriel Estrella MD [address] [place] [address] PCP - General 02/12/17 Uriel Estrella MD 40 [place] [address] Insurance Assigned Provider 12/20/16 03/24/20 Uriel Estrella MD 40 [place] [address] Historical LMR Provider 01/03/17 10/22/20 Josefa Roque NP [address] [place] [address] [email or web address] Historical LMR Provider 01/03/17 10/22/20 Jenifer Watson NP [address] [place] [address] Historical LMR Provider 01/03/17 10/22/20 Phoebe Woodard NP [address] [place] [address] Historical LMR Provider 01/03/17 10/22/20 Debby Ernst MD [address] [address] Obstetrics and Gynecology 03/20/20 Joni Jenkins MD [address] [place] [address] Gastroenterology 03/20/20 Amrita Vincent MD [address] [place] [address] [email or web address] Endocrinology 10/23/20 Uriel Estrella MD [address] [place] [address] [email or web address] Insurance Assigned Provider 06/20/23 Sheri Hernandez, OT [address] [place] [address] [email or web address] Transitions Cooling Pan TenderTravel Guide Therapy 05/19/22 05/19/22 Zully Adan, RN [address] [place] [address] [email or web address] PHCM Cooling Pan Tender 10/12/23 10/26/23 documented as of this encounter Additional Source Comments The information contained in this document represents components of the legal health record. It is not the complete legal health record.[facility]
--- OUTSIDE RECORDS SUMMARY | 2025-02-28 19:35 | XMS_ITS | Encounter Summary ---
Author Organization [facility] Address [address] [facility] [address] [place] [address] Phone Care Team Providers Care Supervisor Abattoir Name Role Phone Uriel Estrella MD Primary Care Provider [phone] Debby Ernst MD Unavailable Joni Jenkins MD Unavailable [phone] Amrita Vincent MD Unavailable Uriel Estrella MD Unavailable [phone] Sheri Hernandez OT Unavailable Zully Adan RN Unavailable Encounter Details Date Type Department Care Team (Late st Contact Info) Description 05/18/2022 Procedure Pass [facility] 30 [place] [address] Social History Tobacco Use Types Packs/Day Years [...] Date of Assessment Author No Risk Indicated 05/18/2022 6:00 PM Mary Ly RN * [place] Suicide Severity Rating Scale (Screener/Recent Self-Report) Question Answer Date of Assessment Author 1. Wish to be (Past 1 Month) No 05/18/2022 6:00 PM Mary Ahn, ANAND 2. Non-Specific Active Suici jeffery Thoughts (Past 1 Month) No 05/18/2022 6:00 PM Brendan Ahn RN 6. Suicidal Behavior (Lifetime) No 6:00 PM Mary Ahn RN documented as of this encounter Plan of Treatment Upcoming Encounters Date Type Department Care Team (Late st Contact Info) Description 03/13/2025 Procedure Pass [facility] Endoscopy Admitting Dept Virtual Department [address] [place] [address] 03/13/2025 10:30 AM EST Hospital Encounter [facility] Endoscopy Admitting Dept Virtual Department [address] [place] [address] Joni Jenkins MD [address] [place] [address] 03/13/2025 10:30 AM EST - 03/13/2025 11:00 AM EST Surgery [facility] Endoscopy Admitting Dept Virtual Department [address] [place] [address] Joni Jenkins MD [address] [place] [address] COLONOSCOPY 05/19/2025 3:30 PM EST Office Visit [facility] Primary Care Clinic 40 [place] [address] Uriel Estrella MD 40 [place] [address] 08/10/2025 3:40 PM EDT Office Visit [facility] Endocrinology Clinic [address] [place] [address] Amrita Vincent MD [address] [address] [email or web address] Scheduled Procedures Name Priority Associated Diagnoses Date/Ti me COLONOSCOPY GERD without esophagitis 03/13/2025 10:30 AM EST documented as of this encounter Visit Diagnoses Not on filedocumented in this encounter Additional Health Concerns Infection Onset Date Last Indicated Resolved Time COVID-19 05/17/2022 05/17/2022 05/23/2022 9:05 AM EST COVID-19 03/31/2023 03/31/2023 04/21/2023 1:21 AM EST CoV-Risk 06/06/2024 06/06/2024 06/17/2024 1:23 AM EDT CoV-Risk 07/22/2024 07/22/2024 08/02/2024 1:21 AM EDT Resp-Risk 02/11/2025 02/11/2025 02/22/2025 7:06 PM EST Assessment Noted Time PHQ-2 Depression Total Score: 2 05/08/19 22 3:57 PM EST documented as of this encounter Care Teams Supervisor Abattoir Relationship Specialty Start Date End Date Uriel Estrella MD 40 [place] [address] [email or web address] PCP - General 02/12/17 Debby Ernst MD [address] [address] Obstetrics and Gynecology 03/20/20 Joni Jenkins MD [address] [place] [address] [email or web address] Gastroenterology 03/20/20 Amrita Vincent MD [address] [address] [email or web address] Endocrinology 10/23/20 Uriel Estrella MD [address] [place] [address] [email or web address] Insurance Assigned Provider 06/20/23 Sheri Hernandez, OT [address] [place] [address] [email or web address] Transitions ShroudmanSiebel Crm Developer Therapy 05/19/22 05/19/22 Zully Adan, RN [address] [place] [address] [email or web address] PHCM Shroudman 10/12/23 10/26/23 documented as of this encounter Additional Source Comments The information contained in this document represents components of the legal health record. It is not the complete legal health record.[facility]
--- OUTSIDE RECORDS SUMMARY | 2025-02-28 19:35 | XMS_ITS | Patient Health Record ---
Author Organization [facility] Address [address] [place] [phone] Support Name Relationship Address Phone ColtNetta machucaValerie Guarantor Unknown [phone] Allergies Allergen (clinical drug ingredient) Drug/Non Drug Allergy documented on EMR Reaction Allergy Type Onset Date Status acetaminophen / oxycodone Percocet Unknown Drug Allergy Active Vicodin Unknown Drug Allergy Active prednisone Prednisone Unknown Drug Allergy Activ e Reason For Referral No Information Medications Medication SIG (Take, Route, Frequency, Duration) Notes Start Date End Date Status Triamcinolone Acetonide 0.1 % 1 application Externally Twice a day; Duration: 7 days 09/04/2020 Active Levothyroxine Sodium 50 MCG 1 tablet in the morning on an empty stomach Orally Once a day; Duration: 30 day(s) Active Social History Tobacco Use: Social History Observation Description Date Details (start date - stop date) Former Smoker NA - NA Tobacco Use/Smoking Question Answer Notes Are you a former smoker Plan Of Treatment No Information Insurance Providers Payer Name Payer Address Payer Phone Subscriber Number Group Number Insured Name Patient Relationship to Insured Coverage Start Date Coverage End Date for Life [address] [place], [place] [id number] Valerie Gregory Self - patient is the insured Medicare [address] [place], [place] [id number] Netta Gregoryaret Self - patient is the insured Medical (General) History Medical History History ICD Code cancer, thyroid cancer uterus Surgical History Surgery Date(Month/Year) hyster 2020 vericose veins 2009 T&A 195 tubal 1988 Hospitalization History Reason Date(Month/Year) surgeries
--- OUTSIDE RECORDS SUMMARY | 2025-02-28 19:35 | XMS_ITS | Encounter Summary ---
Author Organization [employer] Address [address] [place] [address] Care Team Providers Care Wood Tank Erector Name Role Phone Hernandez Wang MD Primary Care Provider [phone] Encounter Details Date Type Department Care Team (Latest Contact Info) Description 12/14/2024 Lab Requisition [facility] [address] [place] [address] Hernandez Wang MD [address] [place] [address], [phone] Acute posthemorrhagic anemia Social History Tobacco Use Types Packs/Day Years Used Date Smoking Tobacco: Never Assessed Comments Unknown Sex and Gender Information Value Date Recorded Sex Assigned at Not on file Legal Sex Female 12:03 PM EDT Gender Identity Not on file Sexual Orientation Not on file documented as of this encounter Plan of Treatment Not on file documented as of this encounter Procedures Procedure Name Priority Date/Time Associated Diagnosis Comments COMPLETE BLOOD COUNT Routine 12/14/2024 5:43 AM EDT Acute posthemorrhagic anemia documented in this encounter Results * (ABNORMAL) Complete blood count (12/14/2024 5:43 AM EDT) WBC 10.3 4.8 - 10.8 K/mcL LAB HEMETOLOGY METHOD 12/14/2024 12:40 PM EDT [facility] RBC 2.80(L) 3.80 - 4.80 M/mcL LAB HEMETOLOGY METHOD 12/14/2024 12:40 PM EDT [facility] Hemoglobin 7.5(L) 11.5 - 16.0 g/dL LAB HEMETOLOGY METHOD 12/14/2024 12:40 PM EDT [facility] Hematocrit 24.8(L) 35.0 - 47.0 % LAB HEMETOLOGY METHOD 12/14/2024 12:40 PM EDT [facility] MCV 87.6 79.0 - 98.0 FL LAB HEMETOLOGY METHOD 12/14/2024 12:40 PM EDT [facility] MCH 26.5(L) 27.0 - 32.0 pcg LAB HEMETOLOGY METHOD 12/14/2024 12:40 PM EDT [facility] MCHC 30.2(L) 32.0 - 37.0 g/dL LAB HEMETOLOGY METHOD 12/14/2024 12:40 PM EDT [facility] RDW 15.5(H) 11.0 - 15.0 % LAB HEMETOLOGY METHOD 12/14/2024 12:40 PM EDT [facility] Platelets 450(H) 130 - 400 K/mcL LAB HEMETOLOGY METHOD 12/14/2024 12:40 PM EDT [facility] MPV 9.0 7.0 - 11.0 FL LAB HEMETOLOGY METHOD 12/14/2024 12:40 PM EDT [facility] NRBC 0.0 <1.0 % LAB HEMETOLOGY METHOD 12/14/2024 12:40 PM EDT [facility] NRBC Absolute 0.00 <0.10 K/mcL LAB HEMETOLOGY METHOD 12/14/2024 12:40 PM EDT [facility] Blood Venous blood specimen / Unknown Venipuncture / Unknown 12/14/2024 5:43 AM EDT 12/14/2024 10:49 AM EDT us Hernandez Wang MD LAB BLOOD ORDERABLES Final Resul t [facility] [address] [place] [address], [place] [phone] documented in this encounter Visit Diagnoses Diagnosis Acute posthemorrhagic anemia documented in this encounter Care Teams Wood Tank Erector Relationship Specialty Start Date End Date Hernandez Wang MD [address] [place] [address], [phone] PCP - General Family Medicine 12/12/24 documented as of this encounter
--- OUTSIDE RECORDS SUMMARY | 2025-02-28 19:35 | XMS_ITS | Encounter Summary ---
Author Organization [email or web address] Address [address] [place] [address] Care Team Providers Care Foam Fabricator Name Role Phone Hernandez Wang MD Primary Care Provider [phone] Encounter Details Date Type Department Care Team (Latest Contact Info) Description 12/12/2024 Lab Requisition [facility] [address] [place] [address] Hernandze Wang MD [address] [place] [address], [phone] Acute posthemorrhagic anemia; Hypothyroidism, unspecified Social History Tobacco Use Types Packs/Day Years [...] Associated Diagnosis Comments COMPLETE BLOOD COUNT Routine 12/12/2024 6:21 AM EDT Acute posthemorrhagic anemia Hypothyroidism, unspecified BASIC METABOLIC PANEL Routine 12/12/2024 6:21 AM EDT Acute posthemorrhagic anemia Hypothyroidism, unspecified documented in this encounter Results * (ABNORMAL) Basic metabolic panel (12/12/2024 6:21 AM EDT) Sodium 139 133 - 145 mmol/L LAB CHEMISTRY METHOD 12/12/2024 1:54 PM EDT [facility] Potassium 4.4 3.5 - 5.5 mmol/L LAB CHEMISTRY METHOD 12/12/2024 1:54 PM EDT [facility] Chloride 105 96 - 110 mmol/L LAB CHEMISTRY METHOD 12/12/2024 1:54 PM EDT [facility] CO2 26 21 - 32 mmol/L LAB CHEMISTRY METHOD 12/12/2024 1:54 PM [facility] Anion Gap 8 3 - 11 LAB CHEMISTRY METHOD 12/12/2024 1:54 PM [facility] Glucose 65(L) 70 - 100 mg/dL LAB CHEMISTRY METHOD 12/12/2024 1:54 PM T [facility] BUN 17 5 - 25 mg/dL LAB CHEMISTRY METHOD 12/12/2024 1:54 PM [facility] Creatinine 0.70 0.50 - 1.10 mg/dL LAB CHEMISTRY METHOD 12/12/2024 1:54 PM [facility] eGFR 91 >=60 mL/min/1. 73m2 LAB CHEMISTRY METHOD 12/12/2024 1:54 PM T [facility] Comment:Calculation based on the Chronic Kidney Disease Epidemiology Collaboration (CKD-EPI) equation refit without adjustment for race. BUN/Creatinine Ratio 24.3 LAB CHEMISTRY METHOD 12/12/2024 1:54 PM [facility] Calcium 8.6 8.5 - 10.5 mg/dL LAB CHEMISTRY METHOD 12/12/2024 1:54 PM [facility] Blood Venous blood specimen / Unknown Venipuncture / Unknown 12/12/2024 6:21 AM EDT 12/12/2024 12:08 PM EDT us Hernandez Wang MD LAB BLOOD ORDERABLES Final Resul t [facility] [address] [place] [address], * (ABNORMAL) Complete blood count (12/12/2024 6:21 AM EDT) WBC 9.7 4.8 - 10.8 K/mcL LAB HEMETOLOGY METHOD 12/12/2024 1:48 PM EDT [facility] RBC 2.80(L) 3.80 - 4.80 M/mcL LAB HEMETOLOGY METHOD [facility] Hemoglobin 7.6(L) 11.5 - 16.0 g/dL LAB HEMETOLOGY METHOD 12/12/2024 1:48 PM EDT [facility] Hematocrit 24.8(L) 35.0 - 47.0 % LAB HEMETOLOGY METHOD 12/12[facility] MCV 88.3 79.0 - 98.0 FL LAB HEMETOLOGY METHOD 12/12/2024 1:48 PM [facility] MCH 27.0 27.0 - 32.0 pcg LAB HEMETOLOGY METHOD [facility] MCHC 30.6(L) 32.0 - 37.0 g/dL LAB HEMETOLOGY METHOD 12/12/2024 1:48 PM [facility] RDW 15.7(H) 11.0 - 15.0 % LAB HEMETOLOGY METHOD 12/12/2024 1:48 PM [facility] Platelets 393 130 - 400 K/mcL LAB HEMETOLOGY METHOD 12/12/2024 1:48 PM EDT [facility] MPV 9.4 7.0 - 11.0 FL LAB HEMETOLOGY METHOD 12/12[facility] NRBC 0.0 <1.0 % LAB HEMETOLOGY METHOD 12/12[facility] NRBC Absolute 0.00 <0.10 K/mcL LAB HEMETOLOGY METHOD 12/12[facility] Blood Venous blood specimen / Unknown Venipuncture / Unknown 12/12/2024 6:21 AM EDT 12/12/2024 12:08 PM EDT us Hernandez Wang MD LAB BLOOD ORDERABLES Final Resul t [facility] [address] [place] [address], documented in this encounter Visit Diagnoses Diagnosis Acute posthemorrhagic anemia Hypothyroidism, unspecified documented in this encounter Care Teams Foam Fabricator Relationship Specialty Start Date End Date Hernandez Wang MD [address] [place] [address], [phone] PCP - General Family Medicine 12/12/24 documented as of this encounter
--- OUTSIDE RECORDS SUMMARY | 2025-02-28 19:35 | XMS_ITS | Encounter Summary ---
Author Organization [facility] Address [address] [facility] [address] [place] [address] Phone Care Team Providers Care Editor & Co Founder Name Role Phone Uriel Estrella MD Primary Care Provider Debby Ernst MD Unavailable Joni Jenkins MD Unavailable [phone] Amrita Vincent MD Unavailable Uriel Estrella MD Unavailable Encounter Details Date Type Department Care Team (Latest Contact Info) Description 09/30/2024 Transcribe Orders [address] [place], [place] [phone] Uriel Estrella MD [address] [place], [place] [phone] [email or web address] Gastroesophageal reflux disease without esophagitis (Primary Dx); Primary osteoarthritis involving multiple joints; Impaired fasting blood sugar; Recurrent pulmonary embolism; Dyspnea on exertion Social History Tobacco Use Types Packs/Day Years [...] ecorded Are you denied basic needs s [facility] as food, clothing, or medical care? No 07/22/2024 In the past 12 months have y ou been in a relationship with a person who hurts, threatens, or tries to control you? No 07/22/2024 Are you denied basic needs s [facility] as food, clothing, or medical care? No [...] [facility] Virtual Department [address] [place] [address] 03/13/2025 10:30 AM EST Hospital Encounter [facility] Virtual Department [address] [place] [address] Joni Jenkins MD [address] [address] 03/13/2025 10:30 AM EST - 03/13/2025 11:00 AM EST Surgery [facility] Admitting [facility] Virtual Department [address] [place] [address] Joni Jenkins MD [address] [place] [address] COLONOSCOPY 05/19/2025 3:30 PM EST Office Visit [facility] [address] [place] [address] Uriel Estrella MD [address] [place] [address] 08/10/2025 3:40 PM EDT Office Visit [facility] Endocrinology [facility] [address] [place] [address] Amrita Vincent MD [address] [place] [address] luis Scheduled Procedures Name Priority Associated Diagnoses Date/Ti nh COLONOSCOPY GERD without esophagitis 03/13/2025 10:30 AM EST documented as of this encounter Visit Diagnoses Diagnosis Gastroesophageal reflux disease without esophagitis- Primary Esophageal reflux Primary osteoarthritis involving multiple joints Impaired fasting blood sugar Impaired fasting glucose Recurrent pulmonary embolism Other pulmonary embolism and infarction Dyspnea on exertion Other dyspnea and respiratory abnormality GERD without esophagitis Esophageal reflux documented in this encounter Additional Health Concerns Infection Onset Date Last Indicated Resolved Time Resp-Risk 02/11/2025 02/11/2025 02/22/2025 7:06 PM EST Assessment Noted Time PHQ-2 Depression Total Score: 1 05/05/19 25 11:45 AM EST documented as of this encounter Care Teams Editor & Co Founder Relationship Specialty Start Date End Date Uriel Estrella MD [address] [place] [address] PCP - General 02/12/17 Debby Ernst MD [address] [address] Obstetrics and Gynecology 03/20/20 Joni Jenkins MD [address] [address] Gastroenterology 03/20/20 Amrita Vincent MD [address] [place] [address] luis Endocrinology 10/23/20 Uriel Estrella MD [address] [place] [address] Insurance Assigned Provider 06/20/23 documented as of this encounter Additional Source Comments The information contained in this document represents components of the legal health record. It is not the complete legal health record.[facility]
--- OUTSIDE RECORDS SUMMARY | 2025-02-28 19:35 | XMS_ITS | Encounter Summary ---
Author Organization [facility] Address [address] [facility] [address] [place] [address] Phone Care Team Providers Care Grounds Crew Supervisor Name Role Phone Uriel Estrella MD Primary Care Provider [phone] Debby Ernst MD Unavailable Joni Jenkins MD Unavailable [phone] Amrita Vincent MD Unavailable Uriel Estrella MD Unavailable Sheri Hernandez OT Unavailable [phone] Zully Adan RN Unavailable [phone] Encounter Details Date Type Department Care Team (Late st Contact Info) Description 05/17/2022 Procedure Pass [facility], Ct Scan - [address] [address] Social History Tobacco Use Types Packs/Day Years [...] No Risk Indicated 05/18/2022 6:00 PM Mary Ly, RN * [place] Suicide Severity Rating Scale (Screener/Recent Self-Report) Question Answer Date of Assessment Author 1. Wish to be (Past 1 Month) No 05/18/2022 6:00 PM Mary Ahn, RN 2. Non-Specific Active Suici jeffery Thoughts (Past 1 Month) No 05/18/2022 6:00 PM Brendan Ahn RN 6. Suicidal Behavior (Lifetime) No 6:00 PM Mary Ahn RN documented as of this encounter Plan of Treatment Upcoming Encounters Date Type Department Care Team (Late st Contact Info) Description 03/13/2025 Procedure Pass [facility] Virtual Department [address] [place] [address] 03/13/2025 10:30 AM EST Hospital Encounter [facility] Virtual Department [address] [place] [address] Joni Jenkins MD [address] [place] [address] 03/13/2025 10:30 AM EST - 03/13/2025 11:00 AM EST Surgery [facility] Admitting [facility] Virtual Department [address] [place] [address] Joni Jenkins MD [address] [place] [address] COLONOSCOPY 05/19/2025 3:30 PM EST Office Visit [facility] [address] [place] [address] Uriel Estrella MD [address] [place] [address] 08/10/2025 3:40 PM EDT Office Visit [facility] Endocrinology Clinic [address] [place] [address] [place] [address] Amrita Vincent MD [address] [place] [address] [email or web address] Scheduled Procedures Name Priority Associated Diagnoses Date/Ti me COLONOSCOPY GERD without esophagitis 03/13/2025 10:30 AM EST documented as of this encounter Visit Diagnoses Not on filedocumented in this encounter Additional Health Concerns Infection Onset Date Last Indicated Resolved Time CoV-Presumed Comment:COVID-19 Added 05/08/2022 05/07/2022 05/17/2022 8:32 [...] documented as of this encounter Care Teams Grounds Crew Supervisor Relationship Specialty Start Date End Date Uriel Estrella MD [address] [place] [address] [email or web address] PCP - General 02/12/17 [place] [address] [place] [address] Obstetrics and Gynecology 03/20/20 Joni Jenkins MD [address] [place] [address] Gastroenterology 03/20/20 Amrita Vincent MD [address] [address] luis Endocrinology 10/23/20 Uriel Estrella MD [address] [place] [phone] Insurance Assigned Provider 06/20/23 Sheri Hernandez, OT [address] [place] [address] [employer] CurerPharmacy Technology Instructor Therapy 05/19/22 05/19/22 Zully Adan, RN [address] [place] [address] [email or web address] PHCM Tire Curer 10/12/23 10/26/23 documented as of this encounter Additional Source Comments The information contained in this document represents components of the legal health record. It is not the complete legal health record.[facility]
--- OUTSIDE RECORDS SUMMARY | 2025-02-28 19:35 | XMS_ITS | Encounter Summary ---
Author Organization [facility] Address [address] [facility] [address] [place] [address] Phone Care Team Providers Care Laundry Marker Supervisor Name Role Phone Uriel Estrella MD Unavailable Uriel Estrella MD Unavailable Josefa Roque STUDENT WORKER Unavailable Jenifer Watson STUDENT WORKER Unavailable Phoebe Woodard STUDENT WORKER Unavailable [phone] Uriel Estrella MD Primary Care Provider Debby Ernst MD Unavailable Joni Jenkins MD Unavailable [phone] Amrita Vincent MD Unavailable [phone] Uriel Estrella MD Unavailable Sheri Hernandez OT Unavailable Zully Adan RN Unavailable Encounter Details Date Type Department Care Team (Late st Contact Info) Description 03/12/2020 Procedure Pass [facility] Virtual Department [address] [place] [address] Social History Tobacco Use Types Packs/Day Years [...] Pass [facility] Admitting Dept Virtual Department [address] [place] [address] 03/13/2025 10:30 AM EST Hospital Encounter [facility] Admitting [facility] Virtual Department [address] [place] [address] Joni Jenkins MD [address] [address] 03/13/2025 10:30 AM EST - 03/13/2025 11:00 AM EST Surgery [facility] Endoscopy Admitting Dept Virtual Department [address] [place] [address] Joni Jenkins MD [address] [address] COLONOSCOPY 05/19/2025 3:30 PM EST Office Visit [facility] [address] [place] [address] Uriel Estrella MD [address] [place] [address] 08/10/2025 3:40 PM EDT Office Visit [facility] Endocrinology Clinic [address] [place] [address] Amrita Vincent MD [address] [place] [address] luis Scheduled Procedures Name Priority Associated Diagnoses [...] 1:21 AM EST CoV-Risk 06/06/2024 06/06/2024 06/17/2024 1:2 3 AM EDT CoV-Risk 07/22/2024 07/22/2024 08/02/2024 1:21 AM EDT Resp-Risk 02/11/2025 02/11/2025 02/22/2025 7:06 PM EST Assessment Noted Time PHQ-2 Depression Total Score: 0 09/04/19 4:05 PM EDT documented as of this encounter Care Teams Laundry Marker Supervisor Relationship Specialty Start Date End Date Uriel Estrella MD [address] [place] [address] PCP - General 02/12/17 Uriel Estrella MD [address] [place] [address] Insurance Assigned Provider 12/20/16 03/24/20 Uriel Estrella MD [address] [place] [address] Historical LMR Provider 01/03/17 10/22/20 Josefa Roque STUDENT WORKER [address] [place] [address] [email or web address] Historical LMR Provider 01/03/17 10/22/20 Jenifer Watson, MAKAYLA [address] [place] [address] Historical LMR Provider 01/03/17 10/22/20 Phoebe Woodard NP [address] [address] Historical LMR Provider 01/03/17 10/22/20 [place] [address] [place] [address] Obstetrics and Gynecology 03/20/20 Joni Jenkins MD [address] [place] [address] Gastroenterology 03/20/20 Amrita Vincent MD [address] [place] [address] luis Endocrinology 10/23/20 Uriel Estrella MD [address] [place] [address] Insurance Assigned Provider 06/20/23 Sheri Hernandez, OT [address] [place] [address] Transitions Disassembler ProductPhotoflash Powder Mixer Therapy 05/19/22 05/19/22 Zully Adan, RN [address] [place] [address] [email or web address] PHC Disassembler Product 10/12/23 10/26/23 documented as of this encounter Additional Source Comments The information contained in this document represents components of the legal health record. It is not the complete legal health record.[facility]
--- OUTSIDE RECORDS SUMMARY | 2025-02-28 19:35 | XMS_ITS | Clinical Summary ---
Author Organization [address] [facility] Address [address] [place] [address] Phone Care Team Providers Care Tower Director Name Role Phone Hernandez Wang MD Primary Care Provider [phone] Encounters Date Type Department Care Team Description 12/14/2024 Lab Requisition [facility] Lab [address] [place] [address] Hernandez Wang MD Acute posthemorrhagic anemia 12/12/2024 Lab Requisition [facility] Lab [address] [place] [address] Hernandez Wang MD Acute posthemorrhagic anemia; Hypothyroidism, unspecified from Last 3 Months Social History Tobacco Use Types Packs/Day Years Used Date Smoking Tobacco: Never Assessed Comments Unknown Sex and Gender Information Value Date Recorded Sex Assigned at Not on file Legal Sex Female 12:03 PM EDT Gender Identity Not on file Sexual Orientation Not on file Plan of Treatment Health Maintenance Due Date Last Done Comments Colorectal Cancer Screening: Colonoscopy 1950 DTaP,Tdap,and Td Vaccines (1 - Tdap) 1969 Pneumococcal Vaccine: 50+ Ye ars (1 of 1 - PCV) 01/17/2000 Zoster Vaccines (1 of 2) 01/17/2000 Depression Screening 03/16/2024 COVID-19 Vaccine (1 - 2024-2 6 season) 2024 Influenza Vaccine (#1) 2024 Falls Risk Assessment 12/12/2024 Hepatitis C Screening 12/12/2024 Medicare Annual Wellness Visit 12/12/2024 Osteoporosis Screening (Bone Density Screening) 12/12/2024 Social Influencers of Health Screening 12/12/2024 RSV Immunization Adult Patie nts (1 - 1-dose 75+ series) 2025 HIB Vaccines Aged Out No longer eligi ble based on patient's age to complete this topic HPV Vaccines Aged Out No longer eligi ble based on patient's age to complete this topic Hepatitis A Vaccines Aged Out No long er eligible based on patient's age to complete this topic Hepatitis B Vaccines Aged Out No long er eligible based on patient's age to complete this topic IPV Vaccines Aged Out No longer eligi ble based on patient's age to complete this topic MMR Vaccines Aged Out No longer eligi ble based on patient's age to complete this topic Meningococcal ACWY Vaccine Aged Out N o longer eligible based on patient's age to complete this topic Meningococcal B Vaccine Aged Out No l onger eligible based on patient's age to complete this topic RSV Immunization Patients Un carlos 20 months Aged Out No longer eligible b ased on patient's age to complete this topic Varicella Vaccines Aged Out No longer eligible based on patient's age to complete this topic Procedures Procedure Name Priority Date/Time Associated Diagnosis Comments COMPLETE BLOOD COUNT Routine 12/14/2024 5:43 AM EDT Acute posthemorrhagic anemia BASIC METABOLIC PANEL Routine 12/12/2024 6:21 AM EDT Acute posthemorrhagic anemia Hypothyroidism, unspecified COMPLETE BLOOD COUNT Routine 12/12/2024 6:21 AM EDT Acute posthemorrhagic anemia Hypothyroidism, unspecified from Last 3 Months Results * (ABNORMAL) Complete blood count (12/14/2024 5:43 AM EDT) Only the most recent of2 resultswithin the time period is included. WBC 10.3 4.8 - 10.8 K/mcL LAB HEMETOLOGY METHOD 12/14/2024 12:40 PM EDT [facility] RBC 2.80(L) 3.80 - 4.80 M/mcL LAB HEMETOLOGY METHOD 12/14/2024 12:40 PM EDT [facility] Hemoglobin 7.5(L) 11.5 - 16.0 g/dL LAB HEMETOLOGY METHOD 12/14/2024 12:40 PM EDT [facility] Hematocrit 24.8(L) 35.0 - 47.0 % LAB HEMETOLOGY METHOD 12/14/2024 12:40 PM EDT [facility] MCV 87.6 79.0 - 98.0 FL LAB HEMETOLOGY METHOD 12/14/2024 12:40 PM EDT [facility] MCH 26.5(L) 27.0 - 32.0 pcg LAB HEMETOLOGY METHOD 12/14/2024 12:40 PM EDT [facility] MCHC 30.2(L) 32.0 - 37.0 g/dL LAB HEMETOLOGY METHOD 12/14/2024 12:40 PM EDT [facility] RDW 15.5(H) 11.0 - 15.0 % LAB HEMETOLOGY METHOD 12/14/2024 12:40 PM EDT [facility] Platelets 450(H) 130 - 400 K/mcL LAB HEMETOLOGY METHOD 12/14/2024 12:40 PM EDT [facility] MPV 9.0 7.0 - 11.0 FL LAB HEMETOLOGY METHOD 12/14/2024 12:40 PM EDT [facility] NRBC 0.0 <1.0 % LAB HEMETOLOGY METHOD 12/14/2024 12:40 PM EDT [facility] NRBC Absolute 0.00 <0.10 K/mcL LAB HEMETOLOGY METHOD 12/14/2024 12:40 PM EDT [facility] Blood Venous blood specimen / Unknown Venipuncture / Unknown 12/14/2024 5:43 AM EDT 12/14/2024 10:49 AM EDT us Hernandze Wang MD LAB BLOOD ORDERABLES Final Resul t [facility] [address] [place] [address], [place] [phone] * (ABNORMAL) Basic metabolic panel (12/12/2024 6:21 AM EDT) Sodium 139 133 - 145 mmol/L LAB CHEMISTRY METHOD 12/12/2024 1:54 PM [facility] Potassium 4.4 3.5 - 5.5 mmol/L LAB CHEMISTRY METHOD 12/12/2024 1:54 PM [facility] Chloride 105 96 - 110 mmol/L LAB CHEMISTRY METHOD 12/12/2024 1:54 PM [facility] CO2 26 21 - 32 mmol/L LAB CHEMISTRY METHOD 12/12/2024 1:54 PM [facility] Anion Gap 8 3 - 11 LAB CHEMISTRY METHOD 12/12/2024 1:54 PM [facility] Glucose 65(L) 70 - 100 mg/dL LAB CHEMISTRY METHOD 12/12/2024 1:54 PM [facility] BUN 17 5 - 25 mg/dL LAB CHEMISTRY METHOD 12/12/2024 1:54 PM [facility] Creatinine 0.70 0.50 - 1.10 mg/dL LAB CHEMISTRY METHOD 12/12/2024 1:54 PM [facility] eGFR 91 >=60 mL/min/1. 73m2 LAB CHEMISTRY METHOD 12/12/2024 1:54 PM [facility] Comment:Calculation based on the Chronic Kidney Disease Epidemiology Collaboration (CKD-EPI) equation refit without adjustment for race. BUN/Creatinine Ratio 24.3 LAB CHEMISTRY METHOD 12/12/2024 1:54 PM [facility] Calcium 8.6 8.5 - 10.5 mg/dL LAB CHEMISTRY METHOD 12/12/2024 1:54 PM [facility] Blood Venous blood specimen / Unknown Venipuncture / Unknown 12/12/2024 6:21 AM EDT 12/12/2024 12:08 PM EDT us Hernandez Wang MD LAB BLOOD ORDERABLES Final Resul t [facility] ([facility] [address] [place] [address], [place] [phone] from Last 3 Months Insurance MEDICARE [facility] Care Teams Tower Director Relationship Specialty Start Date End Date Hernandez Wang MD [address] [place] [phone] PCP - General Family Medicine 12/12/24
--- OUTSIDE RECORDS SUMMARY | 2025-02-28 19:35 | XMS_ITS | Encounter Summary ---
Author Organization [facility] Address [address] [facility] [address] [place] [address] Phone Care Team Providers Care Solar Energy Technician Name Role Phone Uriel Estrella MD Primary Care Provider [phone] Debby Ernst MD Unavailable Joni Jenkins MD Unavailable [phone] Amrita Vincent MD Unavailable Uriel Estrella MD Unavailable Encounter Details Date Type Department Care Team (Late st Contact Info) Description 10/13/2024 Procedure Pass OR Admitting Dept - [facility] Department [address] [place] [phone] Social History Tobacco Use Types Packs/Day Years [...] housing situation today? I have jack hubbard 10/13/2024 How many times have you move [...] as food, clothing, or medical care? No 10/13/2024 In the past 12 months have y ou been in a relationship with a person who hurts, threatens, or tries to control you? No 10/13/2024 Are you denied basic needs s uch as food, clothing, or medical care? No 10/13/2024 In the past 12 months have y ou been in a relationship with a person who hurts, threatens, or tries to control you? No 10/13/2024 Comments No Sex and Gender Information Value Date Recorded Sex Assigned at Not on file Legal Sex Female 10:02 PM EDT Gender Identity Not on file Sexual Orientation Not on file documented as of this encounter Functional Status * Calculated C-SSRS Risk Score (Lifetime/Recent) Answer Date of Assessment Author No Risk Indicated 10/13/2024 7:05 PM EDT Melissa Dukes, ANAND * [place] Suicide Severity Rating Scale (Screener/Recent Self-Report) Question Answer Date of Assessment Author 1. Wish to be (Past 1 Month) No 025 7:05 PM EDT Melissa Dukes, RN 2. Non-Specific Active Suici jeffery Thoughts (Past 1 Month) No 10/13/2024 7:05 PM EDT Melissa Dukes , RN 6. Suicidal Behavior (Lifetime) No 7:05 PM EDT Melissa Dukes, RN documented as of this encounter Plan of Treatment Upcoming Encounters Date Type Department Care Team (Late st Contact Info) Description 03/13/2025 Procedure Pass [facility]oscopy Admitting Dept Virtual Department [address] [place] [address] 03/13/2025 10:30 AM EST Hospital Encounter [facility] Admitting Dept Virtual Department [address] [place] [address] Joni Jenkins MD [address] [address] 03/13/2025 10:30 AM EST - 03/13/2025 11:00 AM EST Surgery [facility]oscopy Admitting Dept Virtual Department [address] [place] [address] Joni Jenkins MD [address] [address] COLONOSCOPY 05/19/2025 3:30 PM EST Office Visit [facility] [address] [place] [address] Uriel Estrella MD [address] [place] [address] 08/10/2025 3:40 PM EDT Office Visit [facility] Endocrinology Clinic [address] [place] [address] Amrita Vincent MD [address] [place] [phone] luis Scheduled Procedures Name Priority Associated Diagnoses [...] documented as of this encounter Care Teams Solar Energy Technician Relationship Specialty Start Date End Date Uriel Estrella MD [address] [place] [address] PCP - General 02/12/17 [place] [address] [place] [address] Obstetrics and Gynecology 03/20/20 Joni Jenkins MD [address] [place] [address] Gastroenterology 03/20/20 Amrita Vincent MD [address] [address] luis Endocrinology 10/23/20 Uriel Estrella MD [address] [place] [address] Insurance Assigned Provider 06/20/23 documented as of this encounter Additional Source Comments The information contained in this document represents components of the legal health record. It is not the complete legal health record.[facility]
--- OUTSIDE RECORDS SUMMARY | 2025-02-28 19:35 | XMS_ITS | Encounter Summary ---
Author Organization [facility] Address [address] [facility] [address] [place] [address] Phone Care Team Providers Care Telephone Technician Name Role Phone Uriel Estrella MD Unavailable Uriel Estrella MD Unavailable Josefa Roque CLOTH INSPECTOR Unavailable Jenifer Watson CLOTH INSPECTOR Unavailable Phoebe Woodard CLOTH INSPECTOR Unavailable [phone] Uriel Estrella MD Primary Care Provider Debby Ernst MD Unavailable Joni Jenkins MD Unavailable [phone] Amrita Vincent MD Unavailable Uriel Estrella MD Unavailable Sheri Hernandez OT Unavailable Zully Adan RN Unavailable Encounter Details Date Type Department Care Team (Late st Contact Info) Description 03/22/2020 Procedure Pass [facility] Endoscopy Admitting Dept Virtual Department [address] [place], [place] [phone] Social History Tobacco Use Types Packs/Day Years [...] Pass [facility]oscopy Admitting Dept Virtual Department [address] [place] [address] 03/13/2025 10:30 AM EST Hospital Encounter [facility] Admitting Dept Virtual Department [address] [place] [address] Joni Jenkins MD [address] [address] 03/13/2025 10:30 AM EST - 03/13/2025 11:00 AM EST Surgery [facility]oscopy Admitting Dept Virtual Department [address] [place] [address] Joni Jenkins MD [address] [address] COLONOSCOPY 05/19/2025 3:30 PM EST Office Visit [facility] [address] [place] [address] Uriel Estrella MD [address] [place] [address] 08/10/2025 3:40 PM EDT Office Visit [facility] Endocrinology Clinic [address] [place] [address] [place] [address] Amrita Vincent MD [address] [place] [phone] luis Scheduled Procedures Name Priority Associated Diagnoses [...] documented as of this encounter Care Teams Telephone Technician Relationship Specialty Start Date End Date Uriel Estrella MD [address] [place] [address] PCP - General 02/12/17 Uriel Estrella MD [address] [place] [address] Insurance Assigned Provider 12/20/16 03/24/20 Uriel Estrella MD [address] [place] [address] Historical LMR Provider 01/03/17 10/22/20 Josefa Roque CLOTH INSPECTOR [address] [place] [address] [email or web address] Historical LMR Provider 01/03/17 10/22/20 Jenifer Watson, MAKAYLA [address] [address] Historical LMR Provider 01/03/17 10/22/20 Phoebe Woodard NP [address] [address] Historical LMR Provider 01/03/17 10/22/20 [place] [address] [place] [address] Obstetrics and Gynecology 03/20/20 Joni Jenkins MD [address] [place] [address] Gastroenterology 03/20/20 Amrita Vincent MD [address] [address] luis Endocrinology 10/23/20 Uriel Estrella MD [address] [place] [address] Insurance Assigned Provider 06/20/23 Sheri Hernandez, OT [address] [place] [address] [email or web address] Transitions Music Video DirectorAutomobile Washer [employer] 05/19/22 05/19/22 Zully Adan, RN [address] [place] [address] [email or web address] PHC Music Video Director 10/12/23 10/26/23 documented as of this encounter Additional Source Comments The information contained in this document represents components of the legal health record. It is not the complete legal health record.[facility]
--- OUTSIDE RECORDS SUMMARY | 2025-02-28 19:35 | XMS_ITS | Clinical Summary ---
Author Organization [facility] Address [address] [place] [address] Phone Care Team Providers Care Neonatal Intensive Care Nurse Name Role Phone Uriel Estrella MD Primary Care Provider Debby Ernst MD Unavailable Joni Jenkins MD Unavailable [phone] Amrita Vincent MD Unavailable [phone] Uriel Estrella MD Unavailable [phone] Allergies Active Allergy Reactions Criticality Noted Date Comments Aspirin GI Upset 06/06/2024 Hydrocodone-Acetaminop hen Nausea and/or Vomiting Low 03/24/2019 Stomach upset Other reaction(s): Unknown Iodinated Contrast Media Hives,Dizziness High 03/07/2020 ? Was due to oral contrast vs IV contrast Other reaction(s): Dizziness Was due to IV contrast; Topical okay Opioids - Morphine Analogues Nausea and/or Vomiting Low 09/08/2022 Oxycodone-Acetaminophe n GI Upset,Nausea and/or Vomiting Low 03/07/2020 Other reaction(s): Unknown Prednisone Diarrhea,Unknown Medium 03/07/2020 Nauseau and dizziness Medications cholecalciferol (VITAMIN D3) 25 MCG (1,000 unit) tablet Take 1,000 Units by mouth nightly at bedtime. Active cetirizine (ZYRTEC) 10 MG tablet Take 10 mg by mouth daily. Active magnesium oxide (MAG-OX) 400 mg (241.3 mg elemental) tablet Take 400 mg by mouth daily. Active diphenhydrAMINE (BENADRYL) 50 MG capsuleIndicatio ns:Allergy to intravenous contrast 50 mg one hour before your ct with iv contrast 1 capsule Active Additional Information Patient taking differently: As needed, 50 mg one hour before your ct with iv contrast, Reported on 02/27/2025 apixaban (ELIQUIS) 5 mg tabletIndication s:Acute pulmonary embolism without acute cor pulmonale, unspecified pulmonary embolism type Take 1 tablet (5 mg total) by mouth 2 (two) times a day. 180 tablet 2 Active amoxicillin (AMOXIL) 500 MG capsule Take 4 capsules 1 hour prior to dental procedures 12 capsule 1 Active meloxicam (MOBIC) 7.5 MG tabletIndication s:Primary osteoarthritis involving multiple joints Take 1 tablet (7.5 mg total) by mouth 2 (two) times a day. 180 tablet 1 025 Active senna (SENOKOT) 8.6 mg tablet Take 2 tablets by mouth 2 (two) times a day as needed. Active acetaminophen (TYLENOL) 325 mg tablet Take 975 mg by mouth. Active levothyroxine (SYNTHROID, LEVOTHROID) 100 MCG tabletIndication s:Acquired hypothyroidism TAKE ONE AND ONE-HALF TABLETS one day PER WEEK AND 1 TABLET 6 DAYS PER WEEK OR DIRECTED 108 tablet Active omeprazole (PRILOSEC) 20 MG capsuleIndicatio ns:Gastroesophag eal reflux disease TAKE 1 CAPSULE DAILY ONE-HALF TO ONE HOUR BEFORE MORNING MEAL 290 capsule 3 Active Additional Information Patient taking differently: 20 mg Oral Every evening, Reason: unable to take with levothyroxine which is taken in the AM, Reported on 02/27/2025 acetaminophen (TYLENOL) 500 MG tablet Take 1,000 mg by mouth 3 (three) times a day as needed for pain (specific location in comments). Active nitrofurantoin (MACROBID) 100 MG capsuleIndicatio ns:Acute cystitis without hematuria Take 1 capsule (100 mg total) by mouth 2 (two) times a day for 5 days. 10 capsule 025 03/05 Active omeprazole (PRILOSEC) 20 MG capsuleIndicatio ns:gastroesophag eal reflux disease Take 20 mg by mouth nightly at bedtime. Indications: gastroesophageal reflux disease 019 02/27 Discontinued( No longer taking) ondansetron (ZOFRAN) 4 MG tablet Take 1 tablet (4 mg total) by mouth every 8 (eight) hours as needed for nausea. 12 tablet 025 02/27 Discontinued levothyroxine (SYNTHROID, LEVOTHROID) 100 MCG tabletIndication s:Acquired hypothyroidism TAKE ONE AND ONE-HALF TABLETS one day PER WEEK AND 1 TABLET 6 DAYS PER WEEK OR DIRECTED 108 tablet 025 02/27 Discontinued HYDROmorphone (DILAUDID) 2 MG tablet 02/27 Discontinued omeprazole (PRILOSEC) 20 MG capsule Take by mouth. 025 02/27 Discontinued( No longer taking) benzonatate (TESSALON) 100 MG capsule Take 100 mg by mouth 3 (three) times a day as needed for cough. 02/11 Discontinued benzonatate (TESSALON) 100 MG capsule Take 1 capsule (100 mg total) by mouth 3 (three) times a day as needed for cough. 21 capsule 02/18 polyethylene glycol (GOLYTELY) 236-22.74-6.74 -5.86 gram solutionIndicati ons:History of adenomatous polyp Take 4,000 mL by mouth once for 1 dose. 4 mL 02/27 Active Problems Problem Noted Date Diagnosed Date Morbid (severe) obesity due to excess calories 1 04/30/2024 Open knee wound, left, initial encounter Assessment & Plan (12/21/2024 4:01 PM EDT): She acquired a left knee wound following a mechanical fall leading to a hospitalization due to continued pain, difficulty with ambulation, and wound complications. She was ultimately transition to [facility] for short- term rehab. Her wound was complicated by a blister that was debrided by a wound care doctor. She was ultimately discharged on 12/19/2024 with [facility] services for wound care. She is requesting the bandages to be changed in the office today including the application of Medihoney. I advised the patient that we are not a wound clinic so we unfortunately do not have all the resources to appropriately change the dressing on the wound. She reports that if his office change the dressings, she will place appropriate dressings on the wound when she got home. All dressings were removed and wound was visualized and cleaned with normal saline. Redressed with sponge gauze and a gauze wrap with tape. I advised the patient about the importance of redressing the wound when she got home for appropriate wound care. Patient reports that this is a workmen's comp incident and requires paperwork to be filled out for Workmen's Comp. Advised patient that she should get that paperwork to our office and then I can fill it out for her. Her hospitalization was complicated by anemia, likely in the setting of Eliquis use with the trauma. Will obtain a repeat CBC to further assess. Will follow-up in 4 weeks to reassess her knee, to also reassess when she can return to work. If patient believes that she can return to work sooner, she should let the office know. Ventral hernia without obstruction or gangrene 0 10/13/2024 Acute pulmonary embolism 05/20/2022 Bilateral pulmonary embolism 05/18/2022 Overview (05/18/2022): Right upper lobe lobar, segmental and subsegmental; right lower lobe segmental; left upper lobe segmental. Provoked by COVID-19 Assessment & Plan (05/19/2022 5:53 PM EST): Presented with worsening shortness of breath, cough. In the ED not hypoxic no fever no chest pain not tachycardic Evaluated with CT found to have bilateral PE As she was stable the ED provider offered starting her on Eliquis and discharging her, but she was concerned she would have a side effect and worried about being alone at home. Admitted, she is receiving Eliquis. Echo requested. Still short of breath but improved. Remains off oxygen still has no chest pain Note BP initially elevated patient denies hypertension history. Better today Lab test positive for detection of COVID-19 viru s 05/18/2022 Assessment & Plan (05/19/2022 5:52 PM EST): Patient initially COVID-positive about 2 weeks ago. Took a course of Paxlovid and completed it Moderate persistent asthma 05/18/2022 Assessment & Plan (05/18/2022 2:08 PM EST): She takes her Advair as needed at home. It was suggested to her that she take it daily She reports she had a little bit of wheezing at home. She is has no wheezing exam now and air movement is good. She has had problems with prednisone in the past and would not take a steroid if offered Albuterol MDI ordered 4 times daily. Advair ordered Acute cystitis without hematuria 08/17/2020 Assessment & Plan (08/17/2020 6:37 PM EDT): At this point will just obtain a urinalysis today and see if positive consider treatment but patient was just coming off of a 10-day course of Keflex. So if so if white cells positive and patient symptoms flareup again we will treat very oriented to the antibiogram. If there are any red cells in the urine I am inclined to send this patient's to urologist to investigate bladder more closely. Especially with the prior history of uterine cancer and recent hysterectomy. Patient is in agreement with the plan. For now we encouraged her to keep up with her water and to let us know if her symptoms come back. Her kidneys felt okay we did not think she was having pyelonephritis. Acquired hypothyroidism 03/24/2019 Assessment & Plan (08/11/2024 6:09 PM EDT): Reports good consistency taking rx appropriately. Has had some mild fluctuation in weight, ? In part related to fluid retention, discussed role of diet, exercise. Will check levels today & adjust rx as appropriate. If levels normal, would repeat labs yearly, sooner prn symptoms of thyroid dysfunction, > 10-15# weight change, or as otherwise clinically indicated. If dose is adjusted, will plan on repeating in 2-3 months. Assessment & Plan (08/11/2023 4:14 PM EDT): Reports good consistency taking rx appropriately. Has gained weight. Will check levels today & adjust rx as appropriate. If levels normal, would repeat labs yearly, sooner prn symptoms of thyroid dysfunction, > 10-15# weight change, or as otherwise clinically indicated. If dose is adjusted, will plan on repeating in 2-3 months. Assessment & Plan (08/03/2022 8:07 PM EDT): Clinically euthyroid. Reports good consistency taking rx appropriately. Would repeat labs yearly, sooner prn symptoms of thyroid dysfunction, > 10-15# weight change, or as otherwise clinically indicated. Gastroesophageal reflux disease 03/24/2019 Encounters Date Type Department Care Team Description 02/27/2025 4:00 PM EST Office Visit [facility] [address] [place] [address] Uriel Estrella MD Routine general medical examination at [facility] (Primary Dx); Morbid (severe) obesity due to excess calories; History of pulmonary embolism; Elevated blood pressure reading without diagnosis of hypertension; History of pulmonary embolus (PE); Acquired hypothyroidism 02/27/2025 9:00 AM EST Pre-Admission Testing Pre Procedure Evaluation [address] [place] [address] Joni Jenkins MD 02/27/2025 Orders Only [facility] [address] [place] [address] Suzanne Vela CNP History of adenomatous polyp (Primary Dx) 02/27/2025 Telephone [facility] [address] [place] [address] Uriel Estrella MD 02/27/2025 Telephone [facility] [address] [place] [address] Jazmyne Mooney RN Urinary Tract Infection 02/23/2025 Refill [facility] [address] [place] [address] Joni Jenkins MD Medication Refill 02/23/2025 Refill [facility] [address] [place] [address] Amrita Vincent MD Medication Refill 02/11/2025 12:10 PM EST Office Visit [facility] at [address] [address] Whit Marc PA-C, [place] Viral illness (Primary Dx) 01/24/2025 9:43 AM EST - 01/24/2025 11:59 PM EST Hospital Encounter [facility], [address] [address] Uriel Estrella MD Discharge Disposition: Home or Self Care 12/27/2024 3:05 PM EDT - 12/27/2024 11:59 PM EDT Hospital Encounter [facility] [address] [place] [address] Uriel Estrella MD Discharge Disposition: Home or Self Care 12/27/2024 Telephone [facility] [address] [place] [address] Uriel Estrella MD 12/27/2024 Orders Only [facility] [address] [facility] [place] [address] Amrita Vincent MD Acquired hypothyroidism (Primary Dx) 12/21/2024 3:39 PM EDT - 12/21/2024 11:59 PM EDT [facility] [address] [place] [address] Ambika Monk PA-C Discharge Disposition: Home or Self Care 12/21/2024 2:40 PM EDT Office Visit [facility] [address] [facility] [place] [address] Ambika Monk PA-C Anemia, unspecified type (Primary Dx); Open knee wound, left, initial encounter 12/19/2024 Telephone [facility] [address] [facility] [place] [address] Uriel Estrella MD TCM Visit ([facility] + Unable to Schedule) 12/15/2024 Telephone [facility] [address] [place] [address] Jazmyne Mooney, RN update 12/01/2024 Refill [facility] [address] [place] [address] Uriel Estrella MD Medication Refill 09/12/2024 Procedure Pass [facility], [facility] [address] [facility] [place] [address] from Last 3 Months Immunizations Immunization Administration Dates Next Due COVID-19 (Pre-01/05) Moderna Vaccine, mRNA, PF 05/31/2020,05/03/2020 COVID-19 Moderna Spikevax Vaccine 12+ 12/04/2023 Influenza High-Dose Quadriva lent Preservative Free IM 11/27/2022,01/24/2021,12/20/2019 Influenza High-Dose Trivalen t Preservative Free IM 11/28/2024,12/04/2023 Influenza Quadrivalent Adjuv anted Preservative Free IM 11/21/2021 Pneumococcal conjugate PCV13 05/19/2016 Pneumococcal polysaccharide PPSV23 03/20/2020, RSV Vaccine (monovalent, adjuvanted) 01/10/2024 Td, unspecified formulation 03/16/1999 Tdap 06/22/2022,02/13/2012 Zoster live 02/21/2013 Zoster recombinant 08/17/2020,03/26/2020 Family History Medical History Relation Comments Diabetes Father Hypertension Father Kidney Tumors Father Heart disease Maternal Grandfather Heart disease Mother Osteoporosis Mother Thyroid disease Neg Hx Relation Status Comments Father Maternal Grandfather Mother Social History Tobacco Use Types Packs/Day Years [...] on file Sexual Orientation Not on file Last Filed Vital Signs Vital Sign Reading Time Taken Comments Blood Pressure 145/78 02/27/2025 4:51 PM EST Pulse 75 02/27/2025 3:49 PM EST Temperature 36.7 C (98.1 F) 02/27/2025 3:49 PM EST Respiratory Rate 18 02/11/2025 12:1 9 PM EST Oxygen Saturation 98% 02/27/2025 3:49 PM EST Inhaled Oxygen Concentration - - Weight 120.9 kg (266 lb 9.6 oz) 02/27/2025 3:49 PM EST Height 167.6 cm (5' 6 ) 02/27/2025 2:47 PM EST Body Mass Index 43.03 02/27/2025 2:47 PM EST Plan of Treatment Upcoming Encounters Date Type Department Care Team (Late st Contact Info) Description 03/13/2025 Procedure Pass [facility] Admitting [facility] Virtual Department [address] [place] [address] 03/13/2025 10:30 AM EST Hospital Encounter [facility] Virtual Department [address] [place] [address] Joni Jenkins MD [address] [place] [address] 03/13/2025 10:30 AM EST - 03/13/2025 11:00 AM EST Surgery [facility]oscopy Admitting Dept Virtual Department [address] [place] [address] Joni Jenkins MD [address] [place] [address] COLONOSCOPY 05/19/2025 3:30 PM EST Office Visit [facility] [address] [place] [address] Uriel Estrella MD [address] [place] [address] 08/10/2025 3:40 PM EDT Office Visit [facility] [address] [place] [address] Amrita Vincent MD [address] [address] [email or web address] Scheduled Procedures Name Priority Associated Diagnoses Date/Ti me COLONOSCOPY GERD without esophagitis 03/13/2025 10:30 AM EST Health Maintenance Due Date Last Done Comments COLOGUARD 1995 FIT TEST 1995 FOBT 1995 SIGMOIDOSCOPY 1995 VIRTUAL COLONOSCOPY 1995 COVID-19 VACCINE (2024- season) 2024 12/04/2023, 12/31/2022, 11/21/2021, Additional history exists COLONOSCOPY 03/12/2025 07/26/2024, 02/14, 05/10/2014 COLORECTAL CANCER SCREENING 03/12/2025 DEPRESSION SCREENING 02/26/2026 02/26/2025 CREATININE LEVEL 02/27/2026 02/27/2025, 01/2025, 07/22/2024, Additional history exists TSH LEVEL 02/27/2026 02/27/2025, 10/0 10/2024, 10/24/2024, Additional history exists LIPID PANEL 10/24/2029 10/24/2024, 07/15, 05/05/2022, Additional history exists Adult Td,Tdap Booster 06/22/2032 06/22/2022 , 02/13/2012, 03/16/1999 PNEUMOCOCCAL VACCINES (50+ years) Completed 03/20/2020, 05/19/2016, 02/21/2013 ZOSTER VACCINES Completed 08/17/2020, 03/16, 02/21/2013 OSTEOPOROSIS SCREENING INITIAL (ONE-TIME) Completed 12/18/2020, 12/18/2020 RSV VACCINE Completed 01/10/2024 INFLUENZA VACCINE Completed 11/28/2024, , 11/27/2022, Additional history exists HEPATITIS C SCREENING Completed 12/27/2024 , 12/27/2024, 03/20/2020 SMOKING STATUS SCREENING (Once After 26 Yrs) Completed 02/27/2025 HEPATITIS A VACCINES Aged Out No long er eligible based on patient's age to complete this topic HIB VACCINES Aged Out No longer eligi ble based on patient's age to complete this topic MENINGOCOCCAL VACCINES (ACWY) Aged Out No longer eligible based on patient's age to complete this topic MENINGOCOCCAL VACCINES (B) Aged Out N o longer eligible based on patient's age to complete this topic Goals Goal Patient Goal Type Associated Problems Recent Progress Patient-Stated? Author Autogenerat ed Goal Care Plan Autogenerated Problem No Carolina Love RN Medical Devices Implanted Type Area Floor Sander Device Identifier Shelf Expiration Date Model / Serial / Lot Lens Lens Bilateral: Eye Prosthetic Joint Prosthetic Joint Right: Knee Mesh Graft 4.0x6.0in [employer] Polypropylene Echo Ps Positioning System Hydrogel Barrier Hernia Ellipse - [id number] Implanted:Qty: 1 on 10/13/2024 by Mellissa Nguyen MD at [facility] N/A: Abdomen [employer] 09/10/2025 [id number] / [id number] / [id number] Procedures Procedure Name Priority Date/Time Associated Diagnosis Comments URINE SEDIMENT Routine 02/27/2025 3:46 PM EST Dysuria URINALYSIS WITH REFLEX TO URINE CULTURE Routine 02/27/2025 3:46 PM EST Dysuria URINE CULTURE Routine 02/27/2025 3:46 PM EST Dysuria FREE T4 Routine 02/27/2025 3:39 PM EST Acquired hypothyroidism CBC AND DIFFERENTIAL Routine 02/27/2025 3:39 PM EST Anemia, unspecified type Open knee wound, left, initial encounter TSH WITH REFLEX Routine 02/27/2025 3:39 PM EST Acquired hypothyroidism RETICULOCYTES Routine 02/27/2025 3:39 PM EST Anemia, unspecified type IRON AND IRON BINDING CAPACITY Routine 02/27/2025 3:39 PM EST Anemia, unspecified type FERRITIN Routine 02/27/2025 3:39 PM EST Anemia, unspecified type VITAMIN B12 Routine 02/27/2025 3:39 PM EST Anemia, unspecified type FOLATE Routine 02/27/2025 3:39 PM EST Anemia, unspecified type COMPREHENSIVE METABOLIC PANEL (CMP) Routine 02/27/2025 3:39 PM EST Anemia, unspecified type Gastroesophageal reflux disease without esophagitis Primary osteoarthritis involving multiple joints Impaired fasting blood sugar HEMOGLOBIN A1C Routine 02/27/2025 3:39 PM EST Impaired fasting blood sugar CBC AND DIFFERENTIAL Routine 02/27/2025 3:39 PM EST Anemia, unspecified type Open knee wound, left, initial encounter POCT GROUP A STREPTOCOCCUS, PCR Routine 02/11/2025 12:37 PM EST POCT SARS-COV-2, INFLUENZA A/B, RSV, PCR Routine 02/11/2025 12:36 PM EST MRI ABDOMEN (LIVER) WITH AND WITHOUT CONTRAST Routine 01/24/2025 10:49 AM EST Liver lesion CBC AND DIFFERENTIAL Routine 12/27/2024 3:25 PM EDT Anemia, unspecified type Open knee wound, left, initial encounter HEPATITIS B SURFACE ANTIBODY Routine 12/27/2024 3:25 PM EDT Need for hepatitis B screening test HEPATITIS B SURFACE ANTIGEN Routine 12/27/2024 3:25 PM EDT Need for hepatitis B screening test HEPATITIS B CORE ANTIBODY, TOTAL Routine 12/27/2024 3:25 PM EDT Need for hepatitis B screening test FREE T4 Routine 12/21/2024 3:39 PM EDT TSH WITH REFLEX Routine 12/21/2024 3:39 PM EDT Acquired hypothyroidism CBC AND DIFFERENTIAL Routine 12/21/2024 3:39 PM EDT Anemia, unspecified type LIPID PANEL Routine 10/24/2024 12:10 PM EDT Gastroesophageal reflux disease without esophagitis Primary osteoarthritis involving multiple joints HM COLONOSCOPY FOR RESULT ENTRY ONLY Routine 07/26/2024 BD DXA SCREENING Routine 12/18/2020 from Last 3 Months or Most Recently Relevant to Health Maintenance Results * (ABNORMAL) Urinalysis with Reflex to Urine Culture (02/27/2025 3:46 PM EST) Color Yellow Yellow 02/27/2025 8:48 PM EST [facility] Clarity Cloudy(A) Clear 02/27/2025 8:48 PM EST [facility] Glucose Negative Negative 02/27/2025 8:48 PM [facility] Bilirubin Urine Negative Negative 8:48 PM EST [facility] Ketone Urine Negative Negative 02/27/2025 8:48 PM [facility] Specific [place] 1.025 1.001 - 1.035 02/27/2025 8:48 PM [facility] Blood 2+(A) Negative 02/27/2025 8:48 PM [facility] pH 6.0 5.0 - 8.0 02/27/2025 8:48 PM [facility] Protein 1+(A) Negative 02/27/2025 8:48 PM [facility] Nitrites Negative Negative 02/27/2025 8:48 PM [facility] Leukocyte Esterase 2+(A) Negative 02/27/2025 8:48 PM [facility] Urobilinogen Negative Negative 02/27/2025 8:48 PM [facility] Urine (Urine, Voided) Non-Blood Collection / Unknown 02/27/2025 3:46 PM EST 02/27/2025 3:46 PM EST us Uriel Estrella MD LAB URINE ORDERABLES Final Re sult [facility] [address] [place] [address] * (ABNORMAL) Urine Sediment (02/27/2025 3:46 PM EST) WBC >100(A) 0 - 9 /hpf 02/27/2025 9:01 PM [facility] RBC 0-2 0 - 2 /hpf 02/27/2025 9:01 PM [facility] Bacteria 3+(A) Negative /hpf 02/27/2025 9:01 PM [facility] Urine (Urine, Voided) Non-Blood Collection / Unknown 02/27/2025 3:46 PM EST 02/27/2025 3:46 PM EST Uriel Estrella MD LAB URINE ORDERABLES Final Re sult Performing Organization Address [facility] Co de Phone Number [address] [address] * (ABNORMAL) Reticulocytes (02/27/2025 3:39 PM EST) Pathologist [facility] Retic (%) 0.9 0.7 - 2.5 % 02/27/2025 8:40 PM [facility] Immature Retic Fraction 12.3 3.0 - 15.9 % 02/27/2025 8:40 PM [facility] Absolute Retic 0.03 M cells/uL 02/27/2025 8:40 PM [facility] Retic Hemoglobin Equivalent 25.1(L) 26.7 - 35.5 pg 02/27/2025 8:40 PM [facility] Comment:A decreased reticulo cyte hemoglobin may be indicative of low iron availability. Blood (Blood) Venipuncture / Unknown 02/27/2025 3:39 PM EST 02/27/2025 3:39 PM EST us Uriel Estrella MD LAB BLOOD BKR ORDERABLES Carito l Result Performing Organization Address [facility]/ZIP Co de Phone Number [address] [address] * (ABNORMAL) Comprehensive Metabolic Panel (CMP) (02/27/2025 3:39 PM EST) Sodium 141 136 - 145 mmol/L 02/27/2025 9:07 PM [facility] Potassium 3.8 3.4 - 5.1 mmol/L 02/27/2025 9:07 PM [facility] Chloride 106 98 - 107 mmol/L 02/27/2025 9:07 PM [facility] CO2 24 20 - 31 mmol/L 02/27/2025 9:07 PM [facility] BUN 27(H) 6 - 23 mg/dL 02/27/2025 9:07 PM [facility] Creatinine 1.00 0.50 - 1.00 mg/dL 02/27/2025 9:07 PM [facility] Glucose 80 70 - 99 mg/dL 02/27/2025 9:07 PM [facility] Calcium 9.1 8.5 - 10.5 mg/dL 02/27/2025 9:07 PM [facility] AST 16 <33 U/L 02/27/2025 9:07 PM [facility] ALT 11 <34 U/L 02/27/2025 9:07 PM [facility] Alkaline Phosphatase 85 40 - 130 U/L 02/27/2025 9:07 PM [facility] Bilirubin, Total <0.2 0.0 - 1.2 mg/dL 02/27/2025 9:07 PM [facility] Total Protein 6.9 6.4 - 8.3 g/dL 02/27/2025 9:07 PM [facility] Albumin 3.9 3.5 - 5.2 g/dL 02/27/2025 9:07 PM [facility] Globulin 3.0 1.9 - 4.1 g/dL 02/27/2025 9:07 PM [facility] eGFR 59(L) >59 mL/min/1.7 3m2 02/27/2025 9:07 PM [facility] Comment:Estimated glomerular filtration rate calculated using the CKD-EPI refit equation. Anion Gap 11 3 - 17 mmol/L 02/27/2025 9:07 PM [facility] Blood (Blood) Venipuncture / Unknown 02/27/2025 3:39 PM EST 02/27/2025 3:39 PM EST us Uriel Estrella MD LAB BLOOD BKR ORDERABLES Carito marty Result [facility] [address] [place] [address] * (ABNORMAL) CBC and Differential (02/27/2025 3:39 PM EST) WBC 9.06 4.00 - 11.00 K/uL 02/27/2025 8:40 PM [facility] RBC 4.08 4.00 - 5.20 M/uL 02/27/2025 8:40 PM [facility] [facility] Hemoglobin 10.4(L) 12.0 - 16.0 g/dL 02/27/2025 8:40 PM [facility] Hematocrit 34.9(L) 36.0 - 46.0 % 02/27/2025 8:40 PM [facility] MCV 85.5 80.0 - 100.0 fL 02/27/2025 8:40 PM [facility] MCH 25.5(L) 27.0 - 31.0 pg 02/27/2025 8:40 PM [facility] MCHC 29.8(L) 32.0 - 36.0 g/dL 02/27/2025 8:40 PM [facility] MPV 9.9 8.4 - 12.0 fL 02/27/2025 8:40 PM [facility] RDW-CV 14.8(H) 11.5 - 14.5 % 02/27/2025 8:40 PM [facility] PLT 386 150 - 450 K/uL 02/27/2025 8:40 PM [facility] Neutrophils 65.6 % 02/27/2025 8:40 PM [facility] Lymphocytes 21.6 % 02/27/2025 8:40 PM [facility] Monocytes 7.7 % 02/27/2025 8:40 PM [facility] Eosinophils 3.8 % 02/27/2025 8:40 PM [facility] Basophils 1.0 % 02/27/2025 8:40 PM [facility] Imm Grans 0.3 % 02/27/2025 8:40 PM [facility] NRBC 0.0 <=0.0 /100 WBCs 02/27/2025 8:40 PM [facility] Absolute Neutrophils 5.94 1.92 - 7.60 K/uL 02/27/2025 8:40 PM [facility] Absolute Lymphocytes 1.96 0.72 - 4.10 K/uL 02/27/2025 8:40 PM [facility] Absolute Monocytes 0.70 0.16 - 1.10 K/uL 02/27/2025 8:40 PM [facility] Absolute Eosinophils 0.34 0.00 - 0.50 K/uL 02/27/2025 8:40 PM [facility] Absolute Basophils 0.09 0.00 - 0.15 K/uL 02/27/2025 8:40 PM [facility] Absolute Imm Grans 0.03 0.00 - 0.09 K/uL 02/27/2025 8:40 PM [facility] Absolute NRBC 0.00 <=0.00 K cells/uL 02/27/2025 8:40 PM [facility] Absolute Neutrophils 5.94 1.92 - 7.60 K/uL 02/27/2025 8:40 PM [facility] Comment:Automated cell count . Manual ANC may differ if performed. Diff Type Auto 02/27/2025 8:40 PM [facility] Blood (Blood) Venipuncture / Unknown 02/27/2025 3:39 PM EST 02/27/2025 3:39 PM EST us Ambika Monk PA-C LAB BLOOD BKR ORDERABLES Fin al Result [facility] [address] [place] [address] * (ABNORMAL) Thyroid Stimulating Hormone (TSH), with Reflex (02/27/2025 3:39 PM EST) Only the most recent of2 resultswithin the time period is included. TSH 19.80(H) 0.40 - 5.90 uIU/mL 02/27/2025 9:07 PM EST [facility] Blood (Blood) Venipuncture / Unknown 02/27/2025 3:39 PM EST 02/27/2025 3:39 PM EST us Amrita Vincent MD LAB BLOOD BKR ORDERABL ES Final Result Performing Organization Address [facility] Co de Phone Number [address] [address] * (ABNORMAL) Iron and Total Iron Binding Capacity (Iron/TIBC) (02/27/2025 3:39 PM EST) Pathologist [facility] Iron 25(L) 28 - 170 ug/dL 02/27/2025 9:07 PM [facility] Total Iron-Binding Capacity (TIBC) 263 220 - 460 ug/dL 02/27/2025 9:07 PM [facility] Transferrin Saturation 10(L) 14 - 50 % 02/27/2025 9:07 PM EST [facility] Blood (Blood) Venipuncture / Unknown 02/27/2025 3:39 PM EST 02/27/2025 3:39 PM EST us Uriel Estrella MD LAB BLOOD BKR ORDERABLES Carito l Result Performing Organization Address [facility] Co de Phone Number [address] [address] * T4, Free (02/27/2025 3:39 PM EST) Only the most recent of2 resultswithin the time period is included. T4, Free 1.2 0.9 - 1.8 ng/dL 02/27/2025 10:28 PM [facility] Blood (Blood) Venipuncture / Unknown 02/27/2025 3:39 PM EST 02/27/2025 3:39 PM EST us Amrita Vincent MD LAB BLOOD BKR ORDERABL ES Final Result Performing Organization Address City/[facility]/ZIP Co de Phone Number [address] [address] * Hemoglobin A1c (02/27/2025 3:39 PM EST) [facility] Hemoglobin A1c 5.2 4.3 - 5.6 % 02/27/2025 8:52 PM [facility] Calculated Mean Blood Glucose 103 mg/dL 02/27/2025 8:52 PM [facility] Comment:There is no establis [facility] normal range for the Estimated Average Glucose (EAG). However, a HbA1c of 5.6% (upper limit of normal) represents an EAG of 114 mg/dL. The diagnostic HbA1c level for diabetes is greater than or equal to 6.5%, which represents an EAG greater than or equal to 140 mg/dL. Blood (Blood) Venipuncture / Unknown 02/27/2025 3:39 PM EST 02/27/2025 3:39 PM EST Uriel Estrella MD LAB BLOOD BKR ORDERABLES Carito l Result Performing Organization Address [facility]/ZIP Co de Phone Number [address] [address] * Folate (02/27/2025 3:39 PM EST) [facility] Folic Acid 5.0 >4.7 ng/mL 02/27/2025 9:05 PM [facility] Blood (Blood) Venipuncture / Unknown 02/27/2025 3:39 PM EST 02/27/2025 3:39 PM EST Uriel Estrella MD LAB BLOOD BKR ORDERABLES Carito l Result Performing Organization Address City/[facility]/ZIP Co de Phone Number [address] [address] * Ferritin (02/27/2025 3:39 PM EST) [facility] Ferritin 81 30 - 150 ug/L 02/27/2025 9:07 PM EST [facility] Comment:The lower limit of t he reference range has been increased to 30 ug/L for all adults to reflect a physiologically sufficient level. See Document Link for additional information. Blood (Blood) Venipuncture / Unknown 02/27/2025 3:39 PM EST 02/27/2025 3:39 PM EST us Uriel Estrella MD LAB BLOOD BKR ORDERABLES Carito l Result [address] [address] * Vitamin B12 (02/27/2025 3:39 PM EST) [facility] Vitamin B12 292 232 - 1,245 pg/mL 02/27/2025 9:04 PM EST [facility] Blood (Blood) Venipuncture / Unknown 02/27/2025 3:39 PM EST 02/27/2025 3:39 PM EST Uriel Estrella MD LAB BLOOD BKR ORDERABLES Carito l Result Performing Organization Address [facility]/ZIP Co de Phone Number [address] [address] * POCT Group A Streptococcus, PCR (02/11/2025 12:37 PM EST) Pathologist [facility] Strep A, PCR Not Detected Not Detected 02/12/20 1:05 PM EST [facility] Swab (Throat) 02/11/2025 12: 37 PM EST 02/11/2025 1:05 PM EST Whit Marc PA-C, MS LAB POCT DOCKED DE VICE UNSOLICTED RESULTS Final Result Performing Organization Address City/[facility]/ZIP Co de Phone Number [facility] [address] [address], [facility] [phone] * POCT SARS-CoV-2, Influenza A/B, RSV, PCR (02/11/2025 12:36 PM EST) SARS-Cov-2 PCR Negative Negative 02/11/2025 1:17 PM EST [facility] POC Influenza A Negative Negative 02/11/2025 1:17 PM EST [facility] Influenza B Negative Negative 02/11/2025 1:17 PM EST [facility] RSV PCR Negative Negative 02/11/2025 1:17 PM EST [facility] Swab (Anterior Nares) 02/11/2025 12:36 PM EST 02/11/2025 1:17 PM EST us Whit Marc PA-C, MS LAB POCT DOCKED DE VICE UNSOLICTED RESULTS Final Result Performing Organization Address City/State/[facility] Co de Phone Number [facility] [place] [id number], [facility] [phone] * MRI ABDOMEN (LIVER) WITH AND WITHOUT CONTRAST (01/24/2025 10:49 AM EST) Anatomical Region Laterality Modality Abdomen Magnetic Resonan ce 01/30/2025 9:31 PM EST Impressions 01/31/2025 9:44 AM EST Since September 08, 2024: * No significant change in the 1.7 cm segment 7 lesion, in retrospect present dating back to October 2014, likely benign, 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 * Unchanged 0.9 cm segment 5/6 lesion, may a small hemangioma or perfusional. * Hepatic steatosis. Narrative 01/31/2025 9:44 AM EST MRI ABDOMEN (LIVER) WITH AND WITHOUT CONTRAST Referring clinician's provided indication for this examination in Epic: * Liver lesion, > 1cm, US nondiagnostic TECHNIQUE: Multiplanar MR imaging of the abdomen was performed using T1, T2, fat saturated, and diffusion weighted techniques. Dynamic multiphase imaging was also performed after administration of an intravenous gadolinium contrast agent. COMPARISON: MRI ABDOMEN (LIVER) WITH AND WITHOUT CONTRAST ; CTA CHEST WWO FINDINGS: Lower chest: No effusions. Liver: -Hepatic steatosis. -No significant change in the thinly septated 1.5 cm T2 hyperintense segment 5/6, likely a mildly complex cyst. -No significant change in the nonenhancing 1.7 cm T2 hyperintense segment 7 lesion, adjacent to the right posterior portal vein. In retrospect present dating back to 10/14/2014. -Unchanged 0.9 cm lesion in the subcapsular area of segment 5/6 with mild T2 hyperintensity and delayed enhancement (5:25) may be perfusional or a small hemangioma, given the T2 hyperintensity. In retrospect on 10/14/2014 CT there is a 1.4 cm hypodense lesion in this region. Biliary: No biliary ductal dilation. Cholelithiasis. Noninflamed gallbladder. Spleen: No splenomegaly or focal lesions. Pancreas: No masses or ductal dilation. Adrenal glands: No nodules. Kidneys/ureters: No solid masses or hydronephrosis. Simple renal cysts measuring up to 2.6 cm. Bowel: No distention or wall thickening. Periampullary duodenal diverticulum. Colonic diverticulosis. Peritoneum/retroperitoneum: No masses or fluid. Lymph nodes: No lymphadenopathy. Vessels: No abdominal aortic aneurysm. Patent portal veins. Bones/soft tissues: No marrow replacing lesions. Procedure Note Beverley Villafana MD - 01/31/2025 MRI ABDOMEN (LIVER) WITH AND WITHOUT CONTRAST Referring clinician's provided indication for this examination in Epic: *Liver lesion, > 1cm, US nondiagnostic TECHNIQUE: Multiplanar MR imaging of the abdomen was performed using T1,T2, fat saturated, and diffusion weighted techniques. Dynamic multiphaseimaging was also performed after administration of an intravenousgadolinium contrast agent. COMPARISON: MRI ABDOMEN (LIVER) WITH AND WITHOUT CONTRAST ; CTACHEST O FINDINGS: Lower chest: No effusions. Liver: -Hepatic steatosis. -No significant change in the thinly septated 1.5 cm T2 hyperintensesegment 5/6, likely a mildly complex cyst. -No significant change in the nonenhancing 1.7 cm T2 hyperintense segment7 lesion, adjacent to the right posterior portal vein. In retrospectpresent dating back to 10/14/2014. -Unchanged 0.9 cm lesion in the subcapsular area of segment 5/6 with mildT2 hyperintensity and delayed enhancement (5:25) may be perfusional or asmall hemangioma, given the T2 hyperintensity. In retrospect on 10/14/2014CT there is a 1.4 cm hypodense lesion in this region. Biliary: No biliary ductal dilation. Cholelithiasis. Noninflamedgallbladder. Spleen: No splenomegaly or focal lesions. Pancreas: No masses or ductal dilation. Adrenal glands: No nodules. Kidneys/ureters: No solid masses or hydronephrosis. Simple renal cystsmeasuring up to 2.6 cm. Bowel: No distention or wall thickening. Periampullary duodenaldiverticulum. Colonic diverticulosis. Peritoneum/retroperitoneum: No masses or fluid. Lymph nodes: No lymphadenopathy. Vessels: No abdominal aortic aneurysm. Patent portal veins. Bones/soft tissues: No marrow replacing lesions. IMPRESSION: Since September 08, 2024: * No significant change in the 1.7 cm segment 7 lesion, in retrospectpresent dating back to October 2014, likely benign, may represent chronicthrombosis of the right posterior portal vein. * Unchanged 0.9 cm segment 5/6 lesion, may a small hemangioma orperfusional. * Hepatic steatosis. Uriel Estrella MD IMG MR ABDOMEN Final Result * Hepatitis B core antibody, total (12/27/2024 3:25 PM EDT) HEP B CORE AB, TOT NON-REACTI VE NON-REACTI VE [facility] Blood 12/27/2024 3:25 PM EDT 12/27/2024 3:32 PM EDT Uriel Estrella MD LAB BLOOD BKR ORDERABLES Carito l Result [address] [address] * Hepatitis B surface antibody (12/27/2024 3:25 PM EDT) HBV SURFACE ANTIBODY NON-REACTI VE [facility] Comment: Unvaccinated: Non Reactive Vaccinated: Reactive Blood 12/27/2024 3:25 PM EDT 12/27/2024 3:32 PM EDT Uriel Estrella MD LAB BLOOD BKR ORDERABLES Carito l Result [address] [address] * Hepatitis B surface antigen (12/27/2024 3:25 PM EDT) Pathologist [facility] HBV SURFACE ANTIGEN NON-REACTI VE NON-REACTI VE [facility] Blood 12/27/2024 3:25 PM EDT 12/27/2024 3:32 PM EDT Uriel Estrella MD LAB BLOOD BKR ORDERABLES Carito l Result Performing Organization Address [facility] Co de Phone Number [address] [address] * (ABNORMAL) CBC and differential (12/27/2024 3:25 PM EDT) Only the most recent of2 resultswithin the time period is included. Pathologist [facility] WBC 10.17 4.00 - 11.00 K/uL [facility] RBC 3.49(L) 4.00 - 5.20 M/uL [facility] HGB 9.3(L) 12.0 - 16.0 g/dL [facility] HCT 31.9(L) 36.0 - 46.0 % [facility] PLT 553(H) 150 - 450 K/uL [facility] MCV 91.4 80.0 - 100.0 fL [facility] MCH 26.6(L) 27.0 - 31.0 pg [facility] MCHC 29.2(L) 32.0 - 36.0 g/dL [facility] RDW 16.1(H) 11.5 - 14.5 % [facility] MPV 9.4 8.4 - 12.0 fL [facility] NRBC 0.00 0.00 /100 WBCs [facility] ABSOLUTE NRBC 0.00 0.00 K/uL [facility] DIFF METHOD Auto [facility] NEUTS 72.9 48.0 - 76.0 % [facility] LYMPHS 15.9(L) 18.0 - 41.0 % [facility] MONOS 6.9 4.0 - 11.0 % [facility] EOS 2.9 0.0 - 5.0 % [facility] BASOS 1.0 0.0 - 1.5 % [facility] Granulocytes, immature (%) 0.4 0.0 - 0.9 % [facility] ABSOLUTE NEUTS 7.41 1.92 - 7.60 K/uL [facility] ABSOLUTE LYMPHS 1.62 0.72 - 4.10 K/uL [facility] ABSOLUTE MONOS 0.70 0.16 - 1.10 K/uL [facility] ABSOLUTE EOS 0.30 0.00 - 0.50 K/uL [facility] ABSOLUTE BASOS 0.10 0.00 - 0.15 K/uL [facility] Granulocytes, immature 0.04 0.00 - 0.09 K/uL [facility] Blood 12/27/2024 3:25 PM EDT 12/27/2024 3:32 PM EDT Ambika Monk PA-C LAB BLOOD BKR ORDERABLES Fin al Result [facility] [address] [place] [address] * (ABNORMAL) Lipid panel (10/24/2024 12:10 PM EDT) HDL 59 mg/dL [facility] Comment: Interpretation <40 mg/dL: Low HDL cholesterol (major risk factor for CHD) Greater than or equal to 60 mg/dL: High HDL cholesterol ( negative risk factor for CHD) HDL - cholesterol is affected by a number of factors, e.g. smoking, excerise, hormones, sex and age. CHOLESTEROL 272(H) 0 - 240 mg/dL [facility] TRIGLYCERIDES 111 30 - 160 mg/dL [facility] LDL 191(H) 50 - 129 mg/dL [facility] Comment: LDL levels in terms of risk for coronary heart disease: <100 mg/dL: Optimal 100-129 mg/dL: Near or above optimal 130-159 mg/dL: Borderline high 160-189 mg/dL: High >190 mg/dL: Very High CARDIAC RISK RATIO 4.6(H) 3.3 - 4.4 C [facility] Blood 10/24/2024 12:1 0 PM EDT 10/24/2024 12:11 PM EDT Uriel Estrella MD LAB BLOOD BKR ORDERABLES Carito l Result Performing Organization Address City/State/[facility] Co de Phone Number [address] [address] * COLONOSCOPY FOR RESULT ENTRY ONLY (07/26/2024) Colonoscopy External Ron Provider HEALTH MAINTENANCE Final Result * DXA Screening (12/18/2020) Anatomical Region Laterality Modality Bone Density Bone Density Uriel Estrella MD IMG BD BONE DENSITY DEXA Edit ed Result - Final from Last 3 Months or Most Recently Relevant to Health Maintenance Additional Health Concerns Active Problems Noted Date Diagnosed Date Autogenerated Problem 02/24/2025 Insurance MEDICARE PART A & B [facility] MEDICARE SUPPLEMENT MEDICARE PART A & B [facility] [employer] [facility] MEDICARE SUPPLEMENT MEDICARE PART A & B FOR LIFE MEDICARE SUPPLEMENT MEDICARE PART A & B FOR LIFE MEDICARE SUPPLEMENT MEDICARE PART A & B [employer] MEDICARE SUPPLEMENT MEDICARE PART A & B FOR LIFE MEDICARE SUPPLEMENT Member Subscriber Plan / Payer (Ef fective 2016-Present) Name:Valerie Gregory Relation to Subscriber:Self Name:Valerie Gregory Payer ID:[id number] (NAIC) Group ID:Not on file Type:[facility] Address: [place] [phone] MEDICARE PART A & B [email or web address] MEDICARE SUPPLEMENT MEDICARE PART A & B [email or web address] MEDICARE SUPPLEMENT MEDICARE PART A & B [facility] [facility] [employer] MEDICARE SUPPLEMENT Advance Directives For more information, please contact: [phone] (9AM - 5PM [facility], Thursday-Thursday) Documents on File Type Date Recorded Patient [employer] Expl anation Healthcare Proxy 10/17/2024 3:36 PM * Full Code (Latest Code Status on File) Date Activated Date Inactivated Comments 10/13/2024 6:56 PM Question Answer Comments Code Status Confirmed With: Patient * Full Code Date Activated Date Inactivated Comments 10/13/2024 10:46 AM 10/13/2024 6:56 PM Question Answer Comments Code Status Confirmed With: Patient * Full Code Date Activated Date Inactivated Comments 05/18/2022 1:00 AM 10/13/2024 10:46 AM Question Answer Comments Code Status Confirmed With: Patient Care Teams Neonatal Intensive Care Nurse Relationship Specialty Start Date End Date Sameer, Uriel J, MD [address] [place] [address] [email or web address] PCP - General 02/12/17 Debby Ernst MD [address] [address] Obstetrics and Gynecology 03/20/20 Joni Jenkins MD [address] [address] [email or web address] Gastroenterology 03/20/20 Amrita Vincent MD [address] [address] [email or web address] Endocrinology 10/23/20 Uriel Estrella MD [address] [place] [address] [email or web address] Insurance Assigned Provider 06/20/23 Additional Source Comments The information contained in this document represents components of the legal health record. It is not the complete legal health record.[facility]
--- OUTSIDE RECORDS SUMMARY | 2025-02-28 19:35 | XMS_ITS | Data Portability ---
Author Organization BRUNA Reis AddMyBestcristina s, [address] Address [address] [place] [address] Care Team Providers Care Spooler Operator Name Role Phone SHAVONNE ZOHRA Primary Care Provider [phone] Assessment No assessment recorded. Plan of Treatment Reminders Order Date Submit Date Provider Last Modified By Organization Details Last Modified Time Details Appointments None recorded. Lab rapid SARS CoV 2 Ag, QL IA, respiratory specimen 2022 023 [email or web address] [facility], [address] [place] [address], [id number], 3 17:47:36 Referral None recorded. Procedures None recorded. Surgeries None recorded. Imaging None recorded. Medication Orders triamcinolo ne acetonide 0.1 % topical cream 2023 024 [facility] #[id number], [address] [place], [id number], 4 19:03:41 cephalexin 500 mg capsule 2023 024 [facility] #58385, [address] [place], [id number], 4 19:03:41 mupirocin 2 % topical ointment 2023 024 [facility] #30807, [address] [place], [id number], 4 19:03:40 amoxicillin 875 mg-renita mars clavulanate 125 mg tablet [address] [facility]20748, [address] [place], [place], [id number], 4 18:29:23 benzonatate 200 mg capsule [address] [facility]03738, [address] [place], [place], [id number], 4 18:29:15 Patient TargetsNo targets recorded. Patient Instructions Encounter Date Encounter Id Patient Instructions Last Modified By Organization Details Last Modified Time 04/17/2022 [id number] sinusitis [email or web address] Not available 04/17 17:47:36 Acute Sinusitis: Care Instructions Not available 04/17/2022 17:47:36 cough: care instructions [email or web address] Not available 04/17/2022 17:47:36 Based on your [...] watery post nasal drip. 6. Saline Nasal [place] is recommended. Since an antibiotic was prescribed [...] notice immediate response. Thank you for using [facility] today, please feel free to contact our [...] to discuss the results of your journal. [email or web address] Not available 04/17/2022 17:47:34 10/31/2023 [id number] insect stings an d bites: care instructions [email or web address] Not available 10/31/2023 19:03:30 impetigo: care instructions [email or web address] Not available 10/31/2023 19:03:30 Reason for Referral None Reported. Results Created Date Observation Date Name Description Value Unit Range Abnormal Flag Note LastModifiedBy Organization Detail LastModifiedTime 04/17/1904/17/2022 rapid SARS CoV 2 Ag, QL IA, respi rator y speci men Unknown Analyte Normal =Negat enoch Not Available _[address], [address], 04/17/2022 16:46:57 04/17/1904/17/2022 rapid SARS CoV 2 Ag, QL IA, respi rator y speci men Unknown Analyte negati ve Not Available [address]_[facility] [address], [address], 04/17/2022 16:46:57 Result Notes None recorded. Problems Name Problem SNOMED Code Status Onset Date Resolution Date Notes Provider Name and Address Organization Details Recorded Time Hypothyroidism 50551445 Active Gladys haley, PA - [facility] 4 18:29:52 Problem Notes None recorded. Procedures Surgical History Date Name Laterality Status Provider Name and Address Organization Details Recorded Time Cataract surg w/iol 1 stage completed Gladys Bernabe PA - [facility] 10/31/2023 18:30:00 tonsillectomy completed Louann Brown PA - [facility] 04/17/2022 16:55:16 Appendectomy completed Louann Brown PA - [facility] 04/17/2022 16:55:21 hysterectomy completed Louann Brown PA - [facility] 04/17/2022 16:55:31 varicose vein operation completed Louann Brown PA - [facility] 04/17/2022 16:55:45 Imaging Results None recorded. Procedure Notes None recorded. Medical Equipment None Reported. Allergies Allergen ID Allergen Name Allergen Category Reaction Reaction Severity Criticality Documentation Date Start Date Code Code System Note Provider Name and Address Organization Details Recorded Time 702740 acetamino phen / hydrocodo ne medicatio n Not available Not available Not available 04/17/2022 78245 2 RxNorm Louann Brown null, PA - [facility] 3 16:50:13 941964 acetamino phen / oxycodone medicatio n Not available Not available Not available 04/17/2022 78744 3 RxNorm Louann haley, PA - [facility] 3 16:50:21 506879 prednison e medicatio n Not available Not available Not available 04/17/2022 8640 RxNorm Louann Brown null, PA - [facility] 3 16:50:31 139875 aspirin medicatio n Not available Not available [...] height Body mass index (BMI) Body weight Pain severity - 0-10 verbal numeric rating [Score] - Reported Oxygen saturation Heart rate Respiratory rate Body temperature Systolic And Diastolic Provider Name and Address Organization Details Last Updated DateTime 3 167.64 cm 41.2 kg/m2 079069. 05 g 0 97.8 % 87 /min 18 /min 97.8 [degF] 153/80 mm[Hg] Louann Brown PA - [facility] 3 16:59:29 Date Recorded Systolic And Diastolic Provider Name and Address Organization Details Last Updated DateTime 10/31/2023 144/86 mm[Hg] Ron Steward, [address] [place], [address], [place] - [facility] 10/31/2023 19:03:22 Date Recorded Body height Body mass index (BMI) Body weight Oxygen saturation Heart rate Respiratory rate Body temperature Systolic And Diastolic Provider Name and Address Organization Details Last Updated DateTime 4 167.64 cm 41.2 kg/m2 358964. 05 g 99 % 68 /min 18 /min 97.7 [degF] 167/84 mm[Hg] Gladys Bernabe PA - [facility] 4 18:32:56 Social History Question Answer Notes LastModified by Organizat ion Details LastModified Time Tobacco Smoking Status Never Smoker Louann haley PA - [facility] 04/17/2022 16:54:56 Have You Recently Traveled Abroad? No Information not available 04/17/2022 Sex: Unknown Functional Status Question Answer Note LastModified by Organizat ion Details LastModified Time Do you use any illicit or recreational drugs? No Information not available 04/17/2022 Do you or have you ever used any other forms of tobacco or nicotine? No Information not available 04/17/2022 What is your level of alcohol consumption? Occasional 1x every other month Information not available 04/17/2022 Mental Status None recorded. Family History Relationship Description Onset Age of this Age Resolved Age Notes LastModified by Organization Details LastModified Time Father Malignant neoplasm of kidney [email or web address] Not available 2022 16:53:31 [...] Recorded Time zoster recombinant 1 completed Louann haley PA - [facility] 04/17/2022 16:50:02 zoster recombinant 1 completed Louann haley, PA - [facility] 04/17/2022 16:50:02 Influenza, high-dose, quadrivalent, PF 0 completed Louann haley, PA - [facility] 04/17/2022 16:50:02 Influenza, high-dose, quadrivalent, PF 1 completed Louann haley, PA - [facility] 04/17/2022 16:50:02 Influenza, adjuvanted, quadrivalent, PF 2 completed Louann Henrye null, PA - [facility] 04/17/2022 16:50:02 COVID-19, mRNA, LNP-S, PF, 100 mcg/0.5mL dose or 50 mcg/0.25mL dose 1 completed Louann Salcedotte null, PA - [facility] 04/17/2022 16:50:02 COVID-19, mRNA, LNP-S, PF, 100 mcg/0.5mL dose or 50 mcg/0.25mL dose 1 completed Louann Salcedotte null, PA - [facility] 04/17/2022 16:50:02 COVID-19, mRNA, LNP-S, PF, 100 mcg/0.5mL dose or 50 mcg/0.25mL dose 2 completed Louann Salcedotte null, PA - [facility] 04/17/2022 16:50:02 COVID-19, mRNA, LNP-S, PF, 100 mcg/0.5mL dose or 50 mcg/0.25mL dose 1 completed Louann Salcedotte null, PA - [facility] 04/17/2022 16:50:02 COVID-19, mRNA, LNP-S, bivalent, PF, 50 mcg/0.5 mL or 25mcg/0.25 mL dose 2 completed Louann Salcedotte null, PA - [facility] 04/17/2022 16:50:02 pneumococcal polysaccharide PPV23 1 completed Louann Salcedotte null, PA - [facility] 04/17/2022 16:50:02 Pneumococcal conjugate PCV 13 7 completed Louann Salcedotte null, PA - [facility] 04/17/2022 16:50:02 Past Encounters Encounter ID Performer Location Encounter Start Date Encounter Closed Date Diagnosis/Indication Diagnosis SNOMED-CT Code Diagnosis ICD10 Code Diagnosis IMO Codes Diagnosis Note [id number] [facility] [address] [place] [address] 01/28/2022 12:15:47 01/28/2022 13:50:07 [id number] [address] [place] [address] 11/04/2019 12:34:50 11/04/2019 15:02:28 [id number] [address] [address] [place] [address] 12/30/2021 15:54:53 12/30/2021 17:50:16 [id number] [address] [place] [address] 06/15/2018 17:25:09 06/15/2018 18:24:02 [id number] [address] [place] [address] 10/27/2019 13:18:53 10/27/2019 14:36:55 [id number] [address] [place] [address] 05/28/2017 15:35:13 05/28/2017 16:02:24 [id number] [address] [address] [place] [address] 08/06/2020 15:06:48 08/06/2020 16:48:43 [id number] [address] [place] [address] 07/13/2021 12:18:25 07/13/2021 14:29:30 [id number] [address] [place] [address] 12/26/2021 16:05:48 12/26/2021 17:42:15 [id number] [facility] [address] 12/22/2021 16:13:25 12/22/2021 17:05:19 [id number] BRUNA GORMAN [address] [place] [address] 04/17/2022 15:02:29 04/17/2022 17:49:15 Exposure to SARS-CoV-2 610613789 Z20.822 Elevated blood-pressure reading without diagnosis of hypertension 686995699 R03.0 Acute sinusitis 27012918 J01.90 Cough 40981482 R05.9 [id number] MINGO Ann [address] [address] BRUNA Mustafa [address] 10/31/2023 17:50:34 10/31/2023 19:05:01 Bite of insect 974619904 W57.XXXA Impetigo 50588937 L01.00 Health Concerns Section Related Observation LastModified by Organization Detai ls LastModified Time None Recorded Concern Status LastModified by Organization Details LastModified Time None Recorded Advance Directives Directive None Recorded Payers Insurance Date Sequence Insurance Name Policy Number Policy Garzon Covered Member ID Garzon Member ID Guarantor Name 05/14/2024 2 FOR LIFE ( - MEDICARE SUPPLEMENT) Valerie Mcdonough Colt [id number] Valerie Mcdonough Colt 05/14/2024 [place] Valerie Mcdonough Colt [id number] Valerie Mcdonough Colt 05/14/2024 1 [place] [employer] Valerie Mcdonough Colt [id number] Valerie Mcdonough Colt 05/14/2024 1 [place] Valerie Mcdonough Colt [id number] Valerie Mcdonough Colt 05/14/2024 2 FOR LIFE ( - MEDICARE SUPPLEMENT) Valerie Mcdonough Colt [id number] Valerie Mcdonough Colt Notes Date Note Type Note Provider Name and Address Organization Details Recorded Time 04/17/2022 text/html COVID-19 SymptomsReported by Patient CoughReported by Patient Sinus ComplaintsReported by PatientHPIFor location, patient reportssinus pain. For associated symptoms, patient reportsnasal discharge from both nostrils,headache forehead,sore throat, andpost nasal drip. For onset/timing, patient reportsinitially started 1weeks ago. For severity, patient reportsmild. For context, patient reportsno recent sick contacts.The patient reports that last year she had a drawn out illness that ended up as pneumonia. She started to had head congestion that is continuing. She now feels it going into her chest and she doesn't want to let it get worse. She denies any shortness of breath or wheezing. 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 LIZZY BRITTON, [place] [address] [place], [address], PA - [facility] 04/17/2022 22:44:15 10/31/2023 text/html Skin Redness UCR eported by PatientSkin Redness UCFor quality, patient reportserythematous,war m, anditchybut reportsnot painful. For severity, patient reportsmoderateandconst ant. For symptoms, patient reportsswellingbut reportsno fever,no nausea, andno vomiting. For location, patient reportsneck,back, andbilateral arm. For duration, patient reports2 days. For onset, patient reportssudden onset. Ron Steward, [place] [address] [place], [address], PA - [facility] 10/31/2023 22:47:21 OBGyn Episode No OBEpisode recorded.
--- OUTSIDE RECORDS SUMMARY | 2025-02-28 19:35 | XMS_ITS | Encounter Summary ---
Author Organization [facility] Address [address] [facility] [address] [place] [address] Phone Care Team Providers Care Valve Tester Name Role Phone Uriel Estrella MD Primary Care Provider Debby Ernst MD Unavailable Joni Jenkins MD Unavailable [phone] Amrita Vincent MD Unavailable [phone] Uriel Estrella MD Unavailable Encounter Details Date Type Department Care Team (Late st Contact Info) Description 07/24/2024 Procedure Pass [facility], [address] [address] Social History Tobacco Use Types Packs/Day Years [...] Pass [facility] Admitting Dept Virtual Department [address] [place] [address] 03/13/2025 10:30 AM EST Hospital Encounter [facility] Virtual Department [address] [place] [address] Joni Jenkins MD [address] [place] [address] 03/13/2025 10:30 AM EST - 03/13/2025 11:00 AM EST Surgery [facility] Admitting Dept Virtual Department [address] [place] [address] Joni Jenkins MD [address] [place] [address] 2 HEATHER Leung [address] [email or web address] COLONOSCOPY 05/19/2025 3:30 PM EST Office Visit [facility] [address] [place] [address] Uriel Estrella MD [address] [place] [address] [email or web address] 08/10/2025 3:40 PM EDT Office Visit [facility] Endocrinology Clinic [address] [place] [address] Amrita Vincent MD [address] [place] [address] [email or web address] Scheduled Procedures Name Priority Associated Diagnoses [...] documented as of this encounter Care Teams Valve Tester Relationship Specialty Start Date End Date Uriel Estrella MD [address] [place] [address] PCP - General 02/12/17 Debby Ernst MD [address] [address] Obstetrics and Gynecology 03/20/20 Joni Jenkins MD [address] [address] Gastroenterology 03/20/20 Amrita Vincent MD [address] [address] luis Endocrinology 10/23/20 Uriel Estrella MD [address] [place] [address] Insurance Assigned Provider 06/20/23 documented as of this encounter Additional Source Comments The information contained in this document represents components of the legal health record. It is not the complete legal health record.[facility]
== END 2025-02-28 15:16 | disposition home or self-care (01) ==
LOC: HO.MAMMO 15:15
PROVIDERS: PCP Internal Medicine; Visit Provider Internal Medicine
DX: Z12.31 Encounter for screening mammogram for malignant neoplasm of breast (principal)
CPT/HCPCS: 77063; 77067

== ENCOUNTER → 2025-02-28 15:15 | Outpatient (BNV) | payer MEDICARE, OTHER, SELFPAY | PROVIDERS: PCP Internal Medicine; Visit Provider Internal Medicine | DX: Z12.31 Encounter for screening mammogram for malignant neoplasm of breast (principal) | CPT/HCPCS: 77063; 77067 ==